=== PATIENT | male | born 1950 | race Caucasian/White ===

== ENCOUNTER → 2017-03-04 | Outpatient (CLI) | payer BC ==
[~2017-03-04] MED LIST: ATOR10TA88 PO; FERR324T PO; LISI-792 PO; WARF1TAB PO
== END | disposition home or self-care (01) ==
LOC: C.RDSM 14:03
PROVIDERS: ATTEND Physical Medicine & Rehabilitation Sports Medicine
DX: M25.511 Pain in right shoulder (principal)

== ENCOUNTER 2022-11-05 13:51 | Inpatient (IN) ==
--- NOTE | 2022-11-05 14:04 | Emergency Department Note ---
Impression & Plan Atypical chest pain, End stage renal disease, HTN (hypertension), Amyloidosis ED Provider Note NAME: PAUL LOOMIS AGE: 72 SEX: M : 1950 ARRIVES VIA: Ambulance INFORMANT: Patient, ED PROVIDER(S): Corby Raza MD CHIEF COMPLAINT: Chest pain MEDICAL DECISION MAKING: Patient presents due to concern for chest pain that occurred while at dialysis. Upon initial presentation patient's symptoms had completely resolved. 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 Initial EKG with no signs of obvious ischemia. Patient's blood work does show kidney dysfunction and troponin is not elevated. Nursing had called to state that the patient seemed to be in significant distress complaining of chest pains and the patient's heart rate was elevated in the 130s. The patient was ordered additional nitroglycerin. Patient was also ordered full dose aspirin. Repeat EKG was obtained and showed diffuse ST depressions anteriorly and laterally. No evidence of acute STEMI but I did speak with on-call cardiology Dr. Flowers as I planned to heparinize the patient and subsequently spoke with skein straightener Dr. Oneill. Dr. Rosi webster agreed with current plan of care which include ASA, nitro, and heparin drip, and he did come to evaluate the patient. A stat echo ordered by Dr. Oneill and completed at bedside. Patient was reassessed multiple times over this time periord w/ continuing improvement of CP from 10 to 7 to 4 to none. The patient's chest pain did resolve after 2 nitroglycerin. I did speak the on-call hospitalist service Dr. Lees. I did speak with Dr. Oneill who stated that the patient's echo did not show any evidence of wall motion abnormality and agrees with current plan of care heparinization trending troponins but does not believe the patient requires catheterization at this time. I did speak with Dr. Lees and conveyed these recommendations as well. Also conveyed the patient's chest pain is completely resolved. We did discuss the possibility of possible PE given the patient's recent fistulogram but believe this to be less likely as when the patient presented the patient was not tachycardic and had no symptoms after nitro. Additional imaging and treatment deferred to inpatient team at this time. Critical Care: I have personally spent 82 minutes of critical care time in direct management of this patient. This includes bedside care, interpretation of diagnostic studies, and testing, discussion with consultants, patient, and family members, and other require inpatient management activities. This 82 minutes is in excess of all separately billable procedures. Prior /Outside records reviewed: I did review the patient's fistulogram procedure performed by Dr. Potter yesterday. The patient did have 2 areas of stenosis which did require dilation. Differential diagnosis: Cardiac ischemia, aortic dissection, pulmonary embolism, pneumothorax, pneumonia, pericarditis, myocarditis, esophageal rupture, GERD, cholecystitis, pancreatitis, musculoskeletal, as well as other pathologies. Diagnostics, as interpreted by me: ECG: Sinus tachycardia, rate of 110, leftl axis deviation, prolonged QTc, no ST elevations. Repeat EKG interpreted by me Sinus tachycardia,, possible arm lead reversal as the patient's axis is changed, rate of 128, ST depressions anteriorly and laterally. No ST elevations. ST depressions are new from EKG completed upon arrival. Repeat EKG interpreted by me Likely sinus tachycardia as P waves appear to be present before every QRS in lead V1, rate of 112, ST depressions present laterally but improved compared to prior. no ST elevations. Cardiac monitoring: An order was placed for continuous cardiac monitoring. The monitor shows a rate of 105 with tachycardic and regular rhythm. Patient was placed on pulse oximetry Medical decision rules: none Imaging studies: See below HPI: Patient presents due to concern for chest pains. The patient states that this occurred in the setting of having just completed his dialysis session. The patient does still make urine. The patient states that he did receive nitroglycerin at dialysis and did have improvement in symptoms. At the time that he did have chest pain he states that he did feel diaphoretic left-sided. The patient was not exerting himself and was at rest at the time of this o ccurrence. Patient does relate that he had a "Roto-Rooter procedure" completed by Dr. Potter yesterday of the patient's left upper extremity AV fistula. Patient denies any prior history of DVT or PE. Patient not on any blood thinners and denies any prior history of CAD i.e. stents or CABG. Patient denies any leg swelling or calf pain. Patient states that he "feels like a new man" and has no symptoms at this time after receiving the nitroglycerin. Patient denies any abdominal pain vomiting or diarrhea. PAST MEDICAL HISTORY: See Below PAST SURGICAL HISTORY: See Below SOCIAL HISTORY: See Below HOME MEDICATIONS: See Below ALLERGIES: See Below VITALS: See Below PHYSICAL EXAMINATION: GENERAL: NAD, wearing a mask, non-toxic. EYE EXAM: Normal conjunctiva. PERRL, no anisocoria and EOM's grossly intact w/o pain. NECK: Supple, no nuchal rigidity, no adenopathy, non-tender. No signs of meningismus. FROM of the neck with good chin to chest and neck extension. No stridor. LUNGS: Clear to auscultation. Normal chest wall mechanics. HEART: NSR, murmur noted. ABDOMEN: Abdomen soft, non-tender, normo-active bowel sounds, no masses, no rebound or guarding. BACK: No CVA TTP. SKIN: No rashes and no bruising. UPPER EXTREMITIES: Upper extremities are grossly normal. Left upper extremity AV fistula with palpable thrill. LOWER EXTREMITIES: Grossly normal, no edema. Negative Homans' sign bilaterally. NEURO EXAM: A&O x3, cranial nerves II-XII grossly intact, normal speech, moves all 4 extremities. 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- EVERY FRIDAY IV INFUSION INCLUDING DEXAMETHASONE (40MG DURING INFUSION PER HEME/ONC)- AMYLOIDOSIS DX 2 WORKUP FOR CKD Anemia CHRONIC; BASELINE HGB 9-10 RANGE PER CHART REVIEW Anemia in chronic kidney disease (CKD) ESRD (end stage renal disease) NO DIALYSIS INDICATION AT THIS TIME; AVF PLACEMENT IN CASE DIALYSIS NEEDED IN FUTURE ESRD needing dialysis Herpes zoster Hypercalcemia Hyperphosphatemia Hypertension Metabolic acidosis Myofascial pain Osteoarthritis Pneumonia 11/2018- SYMPTOMS RESOLVED S/P ABX Pulmonary hypertension MILD (RSVP 44MMHG) Secondary hyperparathyroidism of renal origin Type 2 diabetes mellitus DIET CONTROLLED Vitamin D deficiency Surgical History H/O stem cell transplant History of back surgery Total knee replacement status RIGHT/LEFT Family History Father Family history of diabetes mellitus Social History Smoking Status: Former smoker Second Hand Exposure: No; Do You Dip or Chew Tobacco: No; Tobacco Cessation Education Requested by Patient: No Hx Alcohol Use: No Hx Substance Use: No Preferred Language: Sami Communication Ability: Effective Veterinary Surgeon Required: No Beliefs That Will Affect Care: None Current Living Situation: Spouse Other Information That Helps Us Care for You: No Feels Safe at Home: Yes Safety Concerns: Feels Safe At This Time Assistive Devices: None Allergies Allergies Allergy/AdvReac Type Severity Reaction Status Date / Time clindamycin Allergy Severe Rash Verified 11/05/22 16:53 Sulfa (Sulfonamide Allergy Intermediate diarrhea, Verified 11/05/22 16:53 Antibiotics) rash cefprozil [From Cefzil] AdvReac Intermediate Diarrhea Verified 11/05/22 16:53 Home Meds Home Medications Medication Instructions Recorded Confirmed tamsulosin 0.4 mg capsule 0.4 mg PO QPM 12/17/18 11/05/22 doxycycline monohydrate 100 mg 100 mg PO BID 05/10/19 11/05/22 capsule montelukast 10 mg tablet 10 mg PO DAILY 05/15/20 11/05/22 (Singulair) amlodipine 10 mg tablet 10 mg PO DAILY 12/29/20 11/05/22 cyanocobalamin (vitamin B-12) 1,000 mcg IM MONTHLY 12/29/20 11/05/22 1,000 mcg/mL injection solution fluticasone propionate 110 1 puff inhalation QAM 12/29/20 11/05/22 mcg/actuation HFA aerosol inhaler (Flovent HFA) allopurinol 100 mg tablet 100 mg PO DAILY 01/13/21 11/05/22 furosemide 20 mg tablet 20 mg PO DAILY PRN Fluid Retention 01/13/21 11/05/22 insulin aspart U-100 100 unit/mL 0 unit subcut UD 01/13/21 11/05/22 (3 mL) subcutaneous pen (Novolog FlexPen U-100 Insulin aspart) trazodone 50 mg tablet 100 mg PO HS 01/13/21 11/05/22 acyclovir 400 mg tablet 400 mg PO DAILY 11/04/22 11/05/22 Previous Rx's Medication Instructions Recorded sevelamer carbonate 800 mg tablet 800 mg PO TID #270 tabs 10/11/22 Results & Data (ED) Vital Signs Vital Signs - 24 hr 11/05/22 13:44 11/05/22 14:12 11/05/22 14:25 Temperature 36.8 C Temperature Source Oral Pulse Rate 116 H 107 H 95 H Pulse Rate [Apical] Pulse Rhythm Regular Pulse Strength Normal Respiratory Rate 20 18 Respiratory Effort / Characteristics Non-Labored Respiratory Depth Normal Respiratory Pattern Regular Blood Pressure 113/62 Blood Pressure [Right Arm] Blood Pressure Mean 79 Blood Pressure Mean [Right Arm] Blood Pressure Position Sitting Blood Pressure Position [Right Arm] Pulse Oximetry 98 100 Oxygen Delivery Method Room Air Room Air Oxygen Flow Rate Sepsis Recent Fever Within 48 Hours No Sepsis New/Unexplained Change in Mental Status No Sepsis Action Taken by Nursing No Action Required 11/05/22 15:54 11/05/22 15:54 11/05/22 16:39 Temperature Temperature Source Pulse Rate 103 H 87 Pulse Rate [Apical] 125 H Pulse Rhythm Pulse Strength Respiratory Rate 20 20 23 Respiratory Effort / Characteristics Respiratory Depth Respiratory Pattern Blood Pressure 113/54 L 102/65 Blood Pressure [Right Arm] 113/54 L Blood Pressure Mean 73 77 Blood Pressure Mean [Right Arm] 73 Blood Pressure Position Blood Pressure Position [Right Arm] Sitting Pulse Oximetry 100 100 99 Oxygen Delivery Method Nasal Cannula Nasal Cannula Nasal Cannula Oxygen Flow Rate 2 2 2 Sepsis Recent Fever Within 48 Hours Sepsis New/Unexplained Change in Mental Status Sepsis Action Taken by Nursing 11/05/22 16:45 11/05/22 17:00 Temperature Temperature Source Pulse Rate 84 90 Pulse Rate [Apical] Pulse Rhythm Pulse Strength Respiratory Rate 14 18 Respiratory Effort / Characteristics Respiratory Depth Respiratory Pattern Blood Pressure 105/62 118/65 Blood Pressure [Right Arm] Blood Pressure Mean 76 82 Blood Pressure Mean [Right Arm] Blood Pressure Position Blood Pressure Position [Right Arm] Pulse Oximetry 99 100 Oxygen Delivery Method Nasal Cannula Nasal Cannula Oxygen Flow Rate 2 2 Sepsis Recent Fever Within 48 Hours Sepsis New/Unexplained Change in Mental Status Sepsis Action Taken by Half-Way Medications Current Medication List: was personally reviewed by me Laboratory Data Attestation: I reviewed the patient's lab results. 11/06/22 06:11 11/06/22 06:11 Lab Results 11/05/22 11/05/22 11/05/22 Range/Units 14:46 14:46 14:46 WBC 4.98 (4.8-10.8) K/ul RBC 2.37 L (4.70-6.10) M/uL Hgb 8.2 L (14.0-18.0) g/dl Hct 23.3 L (42.0-52.0) % MCV 98.3 (80.0-100.0) fL MCH 34.6 H (25.0-34.0) pg MCHC 35.2 (32.0-36.0) g/dL RDW Std Deviation 49.3 H (36.4-46.3) fL RDW Coeff of Krish 14.2 (11.5-14.5) % Plt Count 187 (130-400) K/uL MPV 10.0 (9.4-12.4) fL Immature Gran % (Auto) 0.4 % Neut % (Auto) 74.7 % Lymph % (Auto) 16.3 % [place] % (Auto) 5.8 % Eos % (Auto) 2.4 % Baso % (Auto) 0.4 % Neut # (Auto) 3.72 (1.40-6.50) K/uL Lymph # (Auto) 0.81 L (1.2-3.4) K/uL [place] # (Auto) 0.29 (0.11-0.59) K/uL Eos # (Auto) 0.12 (0-0.50) K/uL Baso # (Auto) 0.02 (0-0.2) K/uL Immature Gran # (Auto) 0.02 (0.01-0.20) K/uL PT 10.2 (9.0-12.0) Seconds INR 1.0 (0.9-1.1) APTT 24.1 (21.0-31.0) Seconds PTT Ratio 0.9 Sodium 143 (136-145) mmol/L Potassium 3.2 L (3.5-5.1) mmol/L Chloride 97 L (98-107) mmol/L Carbon Dioxide 35 H (21-32) mmol/L Anion Gap 11 (3-11) BUN 15 (6-23) mg/dl Creatinine 3.60 H (0.6-1.4) mg/dl Est Cr Clr Drug Dosing 17.9 ml/min Est GFR ( Amer) 18.4 ml/min Est GFR (Non-Af Amer) 15.9 ml/min BUN/Creatinine Ratio 4.2 L (10-20) Glucose 140 H (70-99(Fasting)) mg/dl Calcium 8.9 (8.5-10.1) mg/dl Total Bilirubin 0.5 (0.2-1.0) mg/dl AST 17 (13-39) U/L ALT 10 (7-52) U/L Alkaline Phosphatase 57 (34-104) U/L Troponin I High Sens 15.5 (0-20) pg/ml Total Protein 6.3 (6.0-8.3) gm/dl Albumin 4.5 (3.4-5.0) gm/dl Globulin 1.8 L (2.5-4.0) gm/dl Albumin/Globulin Ratio 2.5 H (0.9-2) Lipase 27 (11-82) U/L 11/05/22 Range/Units 17:29 WBC (4.8-10.8) K/ul RBC (4.70-6.10) M/uL Hgb (14.0-18.0) g/dl Hct (42.0-52.0) % MCV (80.0-100.0) fL MCH (25.0-34.0) pg MCHC (32.0-36.0) g/dL RDW Std Deviation (36.4-46.3) fL RDW Coeff of Krish (11.5-14.5) % Plt Count (130-400) K/uL MPV (9.4-12.4) fL Immature Gran % (Auto) % Neut % (Auto) % Lymph % (Auto) % [place] % (Auto) % Eos % (Auto) % Baso % (Auto) % Neut # (Auto) (1.40-6.50) K/uL Lymph # (Auto) (1.2-3.4) K/uL [place] # (Auto) (0.11-0.59) K/uL Eos # (Auto) (0-0.50) K/uL Baso # (Auto) (0-0.2) K/uL Immature Gran # (Auto) (0.01-0.20) K/uL PT (9.0-12.0) Seconds INR (0.9-1.1) APTT (21.0-31.0) Seconds PTT Ratio Sodium (136-145) mmol/L Potassium (3.5-5.1) mmol/L Chloride (98-107) mmol/L Carbon Dioxide (21-32) mmol/L Anion Gap (3-11) BUN (6-23) mg/dl Creatinine (0.6-1.4) mg/dl Est Cr Clr Drug Dosing ml/min Est GFR ( Amer) ml/min Est GFR (Non-Af Amer) ml/min BUN/Creatinine Ratio (10-20) Glucose (70-99(Fasting)) mg/dl Calcium (8.5-10.1) mg/dl Total Bilirubin (0.2-1.0) mg/dl AST (13-39) U/L ALT (7-52) U/L Alkaline Phosphatase (34-104) U/L Troponin I High Sens 20.8 H (0-20) pg/ml Total Protein (6.0-8.3) gm/dl Albumin (3.4-5.0) gm/dl Globulin (2.5-4.0) gm/dl Albumin/Globulin Ratio (0.9-2) Lipase (11-82) U/L Administered Medications Acyclovir (Acyclovir 400 Mg Tab) 400 mg PO DAILY GEMMA Stop: 12/06/22 08:59 Last Admin: 11/06/22 08:41 Dose: 400 mg Documented By: AM Allopurinol (Allopurinol 100 Mg Tab) 100 mg PO DAILY GEMMA Stop: 12/06/22 08:59 Last Admin: 11/06/22 08:41 Dose: 100 mg Documented By: AM Amlodipine Besylate (Amlodipine Besylate 5 Mg Tab) 10 mg PO DAILY GEMMA Stop: 12/06/22 08:59 Last Admin: 11/06/22 08:45 Dose: 10 mg Documented By: AM Cyanocobalamin (Cyanocobalamin 1000 Mcg/Ml Vial) 1,000 mcg IM Q30D GEMMA Stop: 12/06/22 08:59 Last Admin: 11/06/22 11:36 Dose: 1,000 mcg Documented By: AM Doxycycline Hyclate (Doxycycline Hyclate 100 Mg Cap) 100 mg PO BID GEMMA Stop: 12/05/22 20:59 Last Admin: 11/06/22 08:40 Dose: 100 mg Documented By: Admin: 11/05/22 22:11 Dose: 100 mg Documented By: SAHARA Fluticasone Furoate (Fluticasone Furoate 100mcg 14 Puffs/Inhaler) 1 puffs INH DAILY GEMMA Stop: 12/06/22 08:59 Last Admin: 11/06/22 08:46 Dose: Not Given Documented By: AM Heparin Sodium/Dextrose (Heparin Sodium/Dextrose) 25,000 units in 500 mls @ 19 mls/hr IV .Q24H GEMMA; Protocol Stop: 12/05/22 16:14 Last Titration: 11/06/22 09:13 Dose: 950 units/hr, 19 mls/hr Documented By: ASHER Co-signed By: FRANCIA Titration: 11/06/22 07:00 Dose: 900 units/hr, 18 mls/hr Documented By: SAHARA Co-signed By: ASHER Titration: 11/05/22 23:38 Dose: 900 units/hr, 18 mls/hr Documented By: SAHARA Co-signed By: GG Admin: 11/05/22 16:12 Dose: 850 units/hr, 17 mls/hr Documented By: QGV Co-signed By: ARRON Iron Sucrose 300 mg/ Sodium (Chloride) 265 mls @ 176.667 mls/hr IV DAILY GEMMA Stop: 11/09/22 10:29 Last Admin: 11/06/22 13:06 Dose: 176.7 mls/hr Documented By: AM Montelukast Sodium (Montelukast Sodium 10 Mg Tablet) 10 mg PO DAILY GEMMA Stop: 12/06/22 08:59 Last Admin: 11/06/22 08:46 Dose: Not Given Documented By: AM Sevelamer HCl (Sevelamer Hcl 800 Mg Tablet) 800 mg PO TIDM GEMMA Stop: 12/05/22 20:59 Last Admin: 11/06/22 11:36 Dose: 800 mg Documented By: Admin: 11/06/22 08:40 Dose: 800 mg Documented By: Admin: 11/05/22 22:12 Dose: 800 mg Documented By: SAHARA Tamsulosin HCl (Tamsulosin Hcl 0.4 Mg Cap) 0.4 mg PO QPM GEMMA Stop: 12/05/22 20:59 Last Admin: 11/05/22 22:13 Dose: 0.4 mg Documented By: SAHARA Trazodone HCl (Trazodone Hcl 100 Mg Tab) 100 mg PO HS GEMMA Stop: 12/05/22 20:59 Last Admin: 11/05/22 22:12 Dose: 100 mg Documented By: MNM Discontinued Medications Aspirin (Aspirin Chew 324 Mg) 324 mg PO NOW STA Stop: 11/05/22 15:48 Last Admin: 11/05/22 15:51 Dose: 324 mg Documented By: QGV Epoetin Bernardino (Epoetin Bernardino 20,000 Units/Ml Vial) 20,000 units SQ ONE ONE Stop: 11/06/22 12:22 Last Admin: 11/06/22 13:04 Dose: 20,000 units Documented By: AM Heparin Sodium (Porcine) (Heparin Sod (Porcine) 1000 Unit/Ml) 1 units IV NOW ONE Stop: 11/05/22 16:09 Last Admin: 11/05/22 16:13 Dose: 4,000 units Documented By: QGV Co-signed By: NA Heparin Sodium/Dextrose (Heparin Iv Adult Wt-Based Low-Dose With Bolus Protocol) 1 each IV NOW STA; Protocol Stop: 11/05/22 15:53 Last Admin: 11/05/22 20:03 Dose: Not Given Documented By: QGV Morphine Sulfate (Morphine Sulfate 4 Mg/Ml 1 Ml Carp\\Vial) 4 mg IV NOW STA Stop: 11/05/22 15:54 Last Admin: 11/05/22 20:03 Dose: Not Given Documented By: QGV Nitroglycerin (Nitroglycerin Sl 0.4 Mg/Tab Tab) 0.4 mg SL NOW STA Stop: 11/05/22 15:48 Last Admin: 11/05/22 15:51 Dose: 0.4 mg Documented By: QGV Potassium Chloride (Potassium Chloride Crtab 20 Meq Tabcr) 20 meq PO ONE ONE Stop: 11/05/22 20:47 Last Admin: 11/05/22 22:13 Dose: 20 meq Documented By: MNM Imaging Data Radiologist's Impression: Chest X-Ray 11/05/22 14:25 XR chest 1V portable HISTORY: 72 years-old Male Chest pain, nonspecific COMPARISON: Chest radiograph 6 06/09/2019 TECHNIQUE: AP view of the chest FINDINGS: Cardiomediastinal and hilar silhouettes are within normal limits. Mild right hemidiaphragmatic elevation again noted. No pneumothorax, pleural effusion, airspace consolidation or pulmonary edema. Bones appear grossly intact. Left shoulder rotator cuff calcific tendinosis. IMPRESSION: Cardiomegaly without acute process. ACT 112: Negative or not required by law. The above report was generated using voice recognition software. It may contain grammatical, syntax or spelling errors. Electronically signed by: Colton Witt M.D. 11/05/2022 3:11 PM Discharge Plan Visit Data Chief Complaint: Illness ED Provider: Corby Raza Discharge Problem: Atypical chest pain, End stage renal disease, HTN (hypertension), Amyloidosis Patient Disposition: Admitted As Inpatient Discharge Instructions Interventions: ED Discharge Assessment Last Done: 11/05/22 20:24
--- NOTE | 2022-11-05 15:12 | XRay Report ---
XR chest 1V portable HISTORY: 72 years-old Male Chest pain, nonspecific COMPARISON: Chest radiograph 6 06/09/2019 TECHNIQUE: AP view of the chest FINDINGS: Cardiomediastinal and hilar silhouettes are within normal limits. Mild right hemidiaphragmatic elevat ion again noted. No pneumothorax, pleural effusion, airspace consolidation or pulmonary edema. Bones appear grossly intact. Left shoulder rotator cuff calcific tendinosis. IMPRESSION: Cardiomegaly without acute process. ACT 112: Negative or not required by law. The above report was generated using voice recognition software. It may contain grammatical, syntax o r spelling errors. Electronically signed by: Colton Witt M.D. 11/05/2022 3:11 PM
[2022-11-05 15:25] LABS: Basophils # (auto) 0.02 K/uL (0-0.2); Basophils % (auto) 0.4 %; Eosinophils # (auto) 0.12 K/uL (0-0.50); Eosinophils % (auto) 2.4 %; Hematocrit (blood only) 23.3 % (42.0-52.0); Hemoglobin 8.2 g/dl (14.0-18.0); Immature Granulocytes # (auto) 0.02 K/uL (0.01-0.20); Immature Granulocytes % (auto) 0.4 %; Lymphocytes # (auto) 0.81 K/uL (1.2-3.4); Lymphocytes % (auto) 16.3 %; Mean Corpuscular Hemoglobin 34.6 pg (25.0-34.0); Mean Corpuscular Hgb Conc 35.2 g/dL (32.0-36.0); Mean Corpuscular Volume 98.3 fL (80.0-100.0); Monocytes # (auto) 0.29 K/uL (0.11-0.59); Monocytes % (auto) 5.8 %; Neutrophils # (auto) 3.72 K/uL (1.40-6.50); Neutrophils % (auto) 74.7 %; Platelet Count 187 K/uL (130-400); RDW Coefficient of Variation 14.2 % (11.5-14.5); RDW Standard Deviation 49.3 fL (36.4-46.3); Red Blood Count 2.37 M/uL (4.70-6.10); White Blood Count 4.98 K/ul (4.8-10.8)
[2022-11-05 15:47] LABS: Albumin Globulin Ratio 2.5 (0.9-2); Albumin Level 4.5 gm/dl (3.4-5.0); BUN Creatinine Ratio 4.2 (10-20); Bilirubin,Total 0.5 mg/dl (0.2-1.0); Calcium 8.9 mg/dl (8.5-10.1); Creatinine Clr Calc Pharmacy 17.9 ml/min; Est GFR (African American) 18.4 ml/min; Est GFR (Non-African American) 15.9 ml/min; Globulin 1.8 gm/dl (2.5-4.0); Potassium 3.2 mmol/L (3.5-5.1); Total Protein 6.3 gm/dl (6.0-8.3); Troponin I High Sensitivity 15.5 pg/ml (0-20)
[2022-11-05] MEDS ORDERED: ASPIRIN CHEW 324 MG PO STA (15:47)
[2022-11-05] MEDS ORDERED: NITROGLYCERIN SL 0.4 MG/TAB TAB SL STA (15:47)
[2022-11-05 15:50] LABS: Partial Thromboplastin Ratio 0.9; Partial Thromboplastin Time 24.1 Seconds (21.0-31.0); Prothrombin Time 10.2 Seconds (9.0-12.0)
[2022-11-05] MEDS ORDERED: Heparin IV Adult Wt-Based Low-Dose WITH Bolus Protocol IV STA (15:52)
[2022-11-05] MEDS ORDERED: NITROGLYCERIN SL 0.4 MG/TAB TAB SL PRN ×2 (15:52→20:46)
[2022-11-05] MEDS ORDERED: MoRPHine SULFATE 4 MG/ML 1 ML CARP\\VIAL IV STA (15:53)
[2022-11-05] MEDS ORDERED: HEPARIN SOD (PORCINE) 1000 UNIT/ML IV ONE (16:08)
[2022-11-05] MEDS: HEPARIN SODIUM/DEXTROSE 25,000 UNITS/500 ML BAG IV SCH (16:12)
--- NOTE | 2022-11-05 16:42 | Cardiology Consultation ---
Date of Consultation November 05, 2022 Assessment & Plan (1) Atypical chest pain: Multiple potential etiologies. Currently resolved symptoms. No definitive ischemic changes. Initial troponin negative. Unsure if this is secondary to myocardial ischemia, pericardial effusion, embolization of clot status post SCHOOL BASED THERAPIST of AV fistula, or pleuritic. Does not seem to be reproducible. Agree with heparin drip in case it is embolism or ACS. The echo speaks against ACS given normal wall motion. I would trend the troponin and should this be significantly elevated we certainly can consider definitive evaluation by coronary angiography. Not sure if CTA to exclude pulmonary embolism would be of significant yield since symptomatically he is doing well at the moment suggesting that if there was embolism from his AV fistula it was a relatively minor. I would also contact his primary territory sales executive regarding prior stress testing and/or any cath results that may have occurred in the past. (2) Amyloidosis: Per patient this has involved his kidneys as well as his heart. Reports prior cardiac MRI demonstrating amyloid deposits in the heart. He has evidently had stem cell transplant and chemotherapy. The echocardiogram does suggest cardiac amyloidosis but he has preserved LV systolic function with a history of grade 2 diastolic dysfunction. No evidence of fluid overload at this time. He does make urine so he should continue with his usual Lasix dose to maintain euvolemia. (3) PAF (paroxysmal atrial fibrillation): Patient reports history of paroxysmal atrial fibrillation occurring at the time he had stem cell transplant. However, there is no documentation of PAF and he is not on any anticoagulant. He is however on heparin. Hopefully we can obtain records from [facility] to see if he does in fact have paroxysmal atrial fibrillation which may have an impact on our recommended therapy. Of course, his primary territory sales executive likely has addressed this in the past. (4) Anemia: Patient history of chronic anemia. His current H&H seem to be below his baseline. Certainly can contribute to myocardial ischemia by itself and associated chest pain particularly if he was also hypotensive at the time of dialysis. In any case, at the moment he does not have any chest discomfort and given that he will likely continue work-up for renal transplantation we should hold off on any transfusion for as long as possible. Also, he does have some ecchymosis at the AV fistula site but should not have had significant drop-off in H&H from the procedure alone. Should keep an eye on things while he is on heparin. Plan For the time being patient does not need cardiac catheterization. However, I will review his lab work overnight and see if he develops recurrent symptoms and or ischemic EKG changes. 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 He has end- stage renal disease and has been on dialysis. His territory sales executive is Dr. Jonnathan Flores. Patient is undergoing work-up for renal transplant. He had a stress test performed within the last year which is unavailable for my review at this time. Yesterday, patient underwent fistulogram and SCHOOL BASED THERAPIST for a malfunctioning AV fistula in the left upper extremity. He tolerated the procedure well but felt that he was dehydrated yesterday. Then, today he underwent hemodialysis and they removed 1 kg of fluid. He developed chest discomfort and shortness of breath. He was brought by ambulance to the emergency department. EKG was obtained. He was provided heparin drip and nitro glycerin. His symptoms resolved but they recurred for short time and I was called to evaluate him. On my arrival his symptoms had again resolved. He tells me that he often has troubles when he is dehydrated or his blood counts are low. Predominant symptom than is shortness of breath. He never had cardiac catheterization to his recollection but did have a recent stress test performed by [facility]. Patient denies anginal chest pain with activity, shortness of breath at rest, syncope, near syncope, orthopnea, PND, racing heartbeat, palpitations, and edema. He states that he has had intermittent episodes of atrial fibrillation in the past most recently with stem cell transplantation. He recently saw his oncologist. Reviewing his records he had a echocardiogram demonstrating EF of 65%, mild LVH, severe left atrial enlargement, mild right atrial enlargement, dilated IVC and a small pericardial effusion with moderate pulmonary hypertension in 2020. At the time of my evaluation today he was undergoing echocardiogram. I was able to review some of the images which demonstrated no wall motion abnormalities, pericardial effusion, aortic sclerosis, mitral annular calcification, and preserved EF. The myocardium looked hypertrophic and speckled consistent with amyloid deposits. I will fully review the echo when it is available. Allergies Allergy/AdvReac Type Severity Reaction Status Date / Time clindamycin Allergy Severe Rash Verified 11/05/22 16:53 Sulfa (Sulfonamide Allergy Intermediate diarrhea, Verified 11/05/22 16:53 Antibiotics) rash cefprozil [From Cefzil] AdvReac Intermediate Diarrhea Verified 11/05/22 16:53 Home Medications Medication Instructions Recorded Confirmed Type tamsulosin 0.4 mg capsule 0.4 mg PO QPM 12/17/18 11/05/22 History doxycycline monohydrate 100 mg 100 mg PO BID 05/10/19 11/05/22 History capsule montelukast 10 mg tablet 10 mg PO DAILY 05/15/20 11/05/22 History (Singulair) amlodipine 10 mg tablet 10 mg PO DAILY 12/29/20 11/05/22 History cyanocobalamin (vitamin B-12) 1,000 mcg IM MONTHLY 12/29/20 11/05/22 History 1,000 mcg/mL injection solution fluticasone propionate 110 1 puff inhalation QAM 12/29/20 11/05/22 History mcg/actuation HFA aerosol inhaler (Flovent HFA) allopurinol 100 mg tablet 100 mg PO DAILY 01/13/21 11/05/22 History furosemide 20 mg tablet 20 mg PO DAILY PRN Fluid Retention 01/13/21 11/05/22 History insulin aspart U-100 100 unit/mL 0 unit subcut UD 01/13/21 11/05/22 History (3 mL) subcutaneous pen (Novolog FlexPen U-100 Insulin aspart) trazodone 50 mg tablet 100 mg PO HS 01/13/21 11/05/22 History sevelamer carbonate 800 mg tablet 800 mg PO TID #270 tabs 10/11/22 11/05/22 Rx acyclovir 400 mg tablet 400 mg PO DAILY 11/04/22 11/05/22 History Patient History Medical History (Updated 11/05/22 @ 17:07 by Trav Oneill MD, PhD) Amyloidosis ON CHEMO CYBORD- EVERY FRIDAY IV INFUSION INCLUDING DEXAMETHASONE (40MG DURING INFUSION PER HEME/ONC)- AMYLOIDOSIS DX 2/2 WORKUP FOR CKD Anemia CHRONIC; BASELINE HGB 9-10 RANGE PER CHART REVIEW Anemia in chronic kidney disease (CKD) ESRD (end stage renal disease) NO DIALYSIS INDICATION AT THIS TIME; AVF PLACEMENT IN CASE DIALYSIS NEEDED IN FUTURE ESRD needing dialysis Herpes zoster Hypercalcemia Hyperphosphatemia Hypertension Metabolic acidosis Myofascial pain Osteoarthritis Pneumonia 11/2018- SYMPTOMS RESOLVED S/P ABX Pulmonary hypertension MILD (RSVP 44MMHG) Secondary hyperparathyroidism of renal origin Type 2 diabetes mellitus DIET CONTROLLED Vitamin D deficiency Surgical History H/O stem cell transplant History of back surgery Total knee replacement status RIGHT/LEFT Family History Father Family history of diabetes mellitus Social History Smoking Status: Never smoker Second Hand Exposure: No; Hx Alcohol Use: Yes Alcohol type: beer, wine and hard liquor Hx Substance Use: No Preferred Language: Citizen Of [place] Communication Ability: Effective Shroud Line Tier Required: No Beliefs That Will Affect Care: None Current Living Situation: Spouse Feels Safe at Home: Yes Assistive Devices: Denture - Upper, Denture - Lower and Glasses Review of Systems Review of Systems: Negative except as per HPI Physical Exam Constitutional: Awake, alert, oriented chronically ill-appearing male in no acute distress. Eyes: Extraocular muscles intact. Sclera are anicteric. ENMT: Oral mucosa is pink moist and intact. Neck: No JVD Respiratory: Clear to auscultation bilaterally. No wheezing, rhonchi, or rales. Fair air movement. Cardiovascular: Regular rate and rhythm. Grade 2 out of 6 to 3 out of 6 systolic murmur. Soft early diastolic murmur. S3. No lower extremity edema. Musculoskeletal: no cyanosis or clubbing, extremities motor strength 5/5 (Left upper extremity with ecchymosis. Normal thrill at the AV fistula) Neurologic: Cognition is intact. Hearing is reduced. Speech is fluent. No focal deficits. No tremor. Psychiatric: A+Ox3, euthymic affect Results & Data Vital Signs (Past 12 Hours) Vital Signs Temp Pulse Pulse Resp BP BP Pulse Ox 11/05/22 15:54 125 H 20 113/54 L 100 11/05/22 14:25 95 H 18 100 11/05/22 14:12 107 H 11/05/22 13:44 36.8 C 116 H 20 113/62 98 O2 Del Method O2 Flow Rate 11/05/22 15:54 Nasal Cannula 2 11/05/22 14:25 Room Air 11/05/22 14:12 11/05/22 13:44 Room Air PG Care Time/CCT Total # of Minutes Spent Total Time Spent: 55 Total Time Spent with Patient: Total time spent is greater than 50% in coordination of care (as documented) at patient's floor/unit and/or counseling patient: [place] [address] INT INP/OBS CARE 2/55MIN Patient Type New Diagnoses Atypical chest pain R07.89 Amyloidosis E85.9 PAF (paroxysmal atrial fibrillation) I48.0 Anemia D64.9
--- NOTE | 2022-11-05 16:53 | History & Physical Report ---
Date of Service November 05, 2022 Assessment & Plan (1) Chest pain: Plan: Chest pain,? NSTEMI Patient with chest pain, diaphoresis postdialysis. In ER received 1X nitro with complete resolution of symptoms. Subsequently became diaphoretic and ill- appearing, EKG showed diffuse ST depressions. Symptoms resolved with second nitro, patient had received full dose aspirin. Was placed on low-dose heparin drip. Stat consult to cardiology placed. Echo did not show wall motion change, catheterization not recommended at this time. Continue heparinization. Troponins trended, initial negative Initially mildly hypotensive and tachycardic, improved on reassessment Discussed with vascular surgery given recent balloon angioplasty. Low suspicion for procedural thromboembolism. No additional imaging/fistulogram or treatment change recommended at this time. Continue cardiac treatment as noted. Nitro on-call as needed for chest pain Nonanuric ESRD on dialysis 11/04/2022 fistulogram: Widely patent fistula, 2 areas of 90% stenosis at the shoulder level which were dilated. Proximal residual area was then subsequently dilated. Good results with no narrowing seen, adequate hemostasis, no complications at time of procedure. 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 Not an uric, but requires Friday dialysis Nephrology consulted for inpatient management, patient finished dialysis date of admission. Is not fluid overloaded, potassium on admission postdialysis is 3.2. In the setting of chest pain and conserve cardiac irritability 20 EQ of potassium given, limit additional potassium and note dialysis dependence. Creatinine morning prior to dialysis was 4.0. - Clears --> advance to dialysis diet if doing well in AM - K 3.2 - Euvolemic on assessment History of amyloid Continue doxycycline for antiamyloid effects Patient reports he is doing very well post autologous transplant with no ongoing immunosuppressants/treatments required other than doxycycline Anemia Chronic, hemoglobin 8.2 on admission Defer transfusion if possible, given as clinically improved and is asymptomatic and hemoglobin greater than 8 no transfusion recommended on admission Trend hemoglobin daily Follow closely for bleeding in the setting of heparin GTT. Given chronic anemia borderline symptomatic, continuing low-dose heparin as otherwise noted History of DM 2 No longer on insulin, adequate treatment with dialysis Last A1c 6.2% Follow BSG, if greater than 180 may resume basal bolus weight-based BMP daily Hypertension Amlodipine held for hypotension Diet: Renal Disposition: PCU CODE STATUS: Full code DVT prophylaxis: Heparinized (2) Anemia: (3) HTN (hypertension): (4) Chronic kidney disease: (5) Type 2 diabetes mellitus: (6) Hyperlipidemia: (7) Chronic kidney disease, stage V: (8) ESRD needing dialysis: History of Present Illness Primary Care Provider: Rudy Royal Patient is a 72-year-old male with a past medical history of amyloidosis s/p autologous transplant, ESRD with malfunctioning fistula s/p angioplasty with Dr. Potter 11/04/22 subsequently working well, hypercalcemia, hyperphosphatemia, hypertension, type II DM diet controlled, and vitamin D deficiency with additional history of stem cell transplant Solomon is seen at the bedside REports has pain across his center chest and travelled into his left arm last night. Went away after he layed down and went to sleep Went to dialysis today, finished his session when he suddenly had a 'feeling that just didn't feel right' in his arms and pressure in his center chest. That seemed to gradually worsen and lasted 30-40 minutes. [place] better after getting nitro 2x while at dialysis and put on oxygen. ~40 minutes prior to admission marlyn jamison he had another episode which improved with nitro. "Was not a great feeling, felt like I was going to " He notes he had a fistulagram yesterday, not sure if he could have had a clot which broke free during balloon angioplasty. He reports he felt well after the initial procedure. HIs fistula arm has been very bruised since having the procedure and seems to be worsening. hgb 8.1 preprocedure Was having SoB with exertion prior to the procedure Has dialysis [facility] History of Amyloidosis tx with stem cell transplant. 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 Was recovering when he got COVID. That was end of 2019. - Current takes no medications, transplant was successful. Takes doxycycline chronically for amyloid - still takes acyclovir prophylaxis for shingles suppression - does not take insulin. Was transiently on insulin but has not needed since. Medical History: Reviewed Medications: Reviewed Surgical History: Reviewed Family history: Reviewed Allergies: Reviewed Social History: Reviewed Code Status: Full code Allergies Allergy/AdvReac Type Severity Reaction Status Date / Time clindamycin Allergy Severe Rash Verified 11/05/22 16:53 Sulfa (Sulfonamide Allergy Intermediate diarrhea, Verified 11/05/22 16:53 Antibiotics) rash cefprozil [From Cefzil] AdvReac Intermediate Diarrhea Verified 11/05/22 16:53 Home Medications Medication Instructions Recorded Confirmed Type tamsulosin 0.4 mg capsule 0.4 mg PO QPM 12/17/18 11/05/22 History doxycycline monohydrate 100 mg 100 mg PO BID 05/10/19 11/05/22 History capsule montelukast 10 mg tablet 10 mg PO DAILY 05/15/20 11/05/22 History (Singulair) amlodipine 10 mg tablet 10 mg PO DAILY 12/29/20 11/05/22 History cyanocobalamin (vitamin B-12) 1,000 mcg IM MONTHLY 12/29/20 11/05/22 History 1,000 mcg/mL injection solution fluticasone propionate 110 1 puff inhalation QAM 12/29/20 11/05/22 History mcg/actuation HFA aerosol inhaler (Flovent HFA) allopurinol 100 mg tablet 100 mg PO DAILY 01/13/21 11/05/22 History furosemide 20 mg tablet 20 mg PO DAILY PRN Fluid Retention 01/13/21 11/05/22 History insulin aspart U-100 100 unit/mL 0 unit subcut UD 01/13/21 11/05/22 History (3 mL) subcutaneous pen (Novolog FlexPen U-100 Insulin aspart) trazodone 50 mg tablet 100 mg PO HS 01/13/21 11/05/22 History sevelamer carbonate 800 mg tablet 800 mg PO TID #270 tabs 10/11/22 11/05/22 Rx acyclovir 400 mg tablet 400 mg PO DAILY 11/04/22 11/05/22 History 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- EVERY FRIDAY IV INFUSION INCLUDING DEXAMETHASONE (40MG DURING INFUSION PER HEME/ONC)- AMYLOIDOSIS DX 2/2 WORKUP FOR CKD Anemia CHRONIC; BASELINE HGB 9-10 RANGE PER CHART REVIEW Anemia in chronic kidney disease (CKD) ESRD (end stage renal disease) NO DIALYSIS INDICATION AT THIS TIME; AVF PLACEMENT IN CASE DIALYSIS NEEDED IN FUTURE ESRD needing dialysis Herpes zoster Hypercalcemia Hyperphosphatemia Hypertension Metabolic acidosis Myofascial pain Osteoarthritis Pneumonia 11/2018- SYMPTOMS RESOLVED S/P ABX Pulmonary hypertension MILD (RSVP 44MMHG) Secondary hyperparathyroidism of renal origin Type 2 diabetes mellitus DIET CONTROLLED Vitamin D deficiency Surgical History H/O stem cell transplant History of back surgery Total knee replacement status RIGHT/LEFT Family History Father Family history of diabetes mellitus Social History Smoking Status: Never smoker Second Hand Exposure: No; Hx Alcohol Use: Yes Alcohol type: beer, wine and hard liquor Hx Substance Use: No Preferred Language: Upper Sor[place] Communication Ability: Effective Cad Engineer Required: No Beliefs That Will Affect Care: None Current Living Situation: Spouse Feels Safe at Home: Yes Assistive Devices: Denture - Upper, Denture - Lower and Glasses Review of Systems Review of Systems: All systems reviewed & are unremarkable except as noted in HPI & below Physical Exam Physical Exam: General: A&Ox3. NAD. Cooperative. HEENT: Atraumatic, normocephalic. Vision and hearing intact Pulm: CTAB A&P. -wheezes, -rales, -rhonchi. Symmetrical chest rise. No increased work of breathing. No respiratory distress. Cardiac: RRR, systolic murmur present radial pulses intact and symmetrical. Abdominal: Nontender, nondistended, soft. BS present. Extremities: Left AV fistula in place, slight ecchymoses surrounding mid upper arm fistula without firm hematoma. No erythema/pain/warmth. Good thrill. S ensation of soft touch intact in hands bilaterally. Legs are with minimal ankle edema Results & Data Results & Data Vital Signs (Past 12 Hours) Vital Signs Temp Pulse Pulse Resp BP BP Pulse Ox 11/05/22 15:54 125 H 20 113/54 L 100 11/05/22 14:25 95 H 18 100 11/05/22 14:12 107 H 11/05/22 13:44 36.8 C 116 H 20 113/62 98 O2 Del Method O2 Flow Rate 11/05/22 15:54 Nasal Cannula 2 11/05/22 14:25 Room Air 11/05/22 14:12 11/05/22 13:44 Room Air PG Care Time/CCT Total # of Minutes Spent Total Time Spent with Patient: Total time spent is greater than 50% in coordination of care (as documented) at patient's floor/unit and/or counseling patient: Coding Level of Care Code 35817 INT INP/OBS CARE 3/75MIN Diagnoses Chest pain R07.9 Anemia D64.9 HTN (hypertension) I10 Chronic kidney disease N18.9 Type 2 diabetes mellitus E11.9 Hyperlipidemia E78.5 Chronic kidney disease, stage V N18.5 ESRD needing dialysis N18.6; Z99.2
[2022-11-05] MEDS ORDERED: ACETAMINOPHEN 325 MG TAB PO PRN (20:46)
[2022-11-05] MEDS ORDERED: FUROSEMIDE 20 MG TAB PO PRN (20:46)
[2022-11-05] MEDS ORDERED: POTASSIUM CHLORIDE CRTAB 20 MEQ TABCR PO ONE (20:46)
[2022-11-05] MEDS: DOXYCYCLINE HYCLATE 100 MG CAP PO SCH (22:11)
[2022-11-05] MEDS: SEVELAMER HCL 800 MG TABLET PO SCH (22:12)
[2022-11-05] MEDS: traZODone HCL 100 MG TAB PO SCH (22:12)
[2022-11-05] MEDS: TAMSULOSIN HCL 0.4 MG CAP PO SCH (22:13)
[2022-11-05 23:32] LABS: Partial Thromboplastin Ratio 1.6; Partial Thromboplastin Time 44.4 Seconds (21.0-31.0)
[2022-11-06 06:45] LABS: Basophils # (auto) 0.03 K/uL (0-0.2); Basophils % (auto) 0.6 %; Eosinophils # (auto) 0.13 K/uL (0-0.50); Eosinophils % (auto) 2.5 %; Hematocrit (blood only) 21.5 % (42.0-52.0); Hemoglobin 7.5 g/dl (14.0-18.0); Immature Granulocytes # (auto) 0.01 K/uL (0.01-0.20); Immature Granulocytes % (auto) 0.2 %; Lymphocytes # (auto) 1.51 K/uL (1.2-3.4); Lymphocytes % (auto) 28.5 %; Mean Corpuscular Hgb Conc 34.9 g/dL (32.0-36.0); Mean Corpuscular Volume 100.5 fL (80.0-100.0); Monocytes % (auto) 9.5 %; Neutrophils # (auto) 3.11 K/uL (1.40-6.50); Neutrophils % (auto) 58.7 %; Platelet Count 167 K/uL (130-400); RDW Coefficient of Variation 14.8 % (11.5-14.5); Red Blood Count 2.14 M/uL (4.70-6.10); White Blood Count 5.29 K/ul (4.8-10.8)
[2022-11-06 07:14] LABS: Polychromasia 1+
[2022-11-06 07:31] LABS: Partial Thromboplastin Ratio 1.6
[2022-11-06 07:42] LABS: Calcium 8.3 mg/dl (8.5-10.1); Creatinine Clr Calc Pharmacy 11.6 ml/min; Est GFR (African American) 11.8 ml/min; Est GFR (Non-African American) 10.2 ml/min; Potassium 3.7 mmol/L (3.5-5.1)
--- NOTE | 2022-11-06 07:59 | Hospitalist Progress Note ---
Date of Service November 06, 2022 Assessment & Plan (1) Chest pain: Plan: Chest pain,? NSTEMI Patient with chest pain, diaphoresis postdialysis with recurrent sensation SIGNIFICANT chest pain w/ radiation to arms, relieved w/ Nitro Discussed on admit w/ vascular given recent balloon angioplasty -- low suspicion for procedural thromboembolism and no further tx change at this time In ER received 1X nitro with complete resolution of symptoms. Subsequently became diaphoretic and ill-appearing, EKG showed diffuse ST depressions. Symptoms resolved with second nitro, patient had received full dose aspirin. Was placed on low-dose heparin drip Cardiology consulted -- no wma on echo at bedside, no cardiac cath recommended Continue heparin gtt Trop 20.8--> 25.9 --> 43--> 47.3 peaked, repeat 41.7 Currently patient CHEST PAIN FREE on Heparin gtt/nitro -- continuing heparin gtt Close monitoring of blood counts on heparin (reports hx nose bleeds) Was going to attempt to transfuse unit of PRBC however patient on transplant list and wanting to avoid Nephrology consulted and to give dose EPO/Venofer and will monitor counts Dr Flores to see patient in AM as well Atrial Fibrillation Hx paroxysmal afib (rates not significantly elevated at time of symptoms when inhouse) EKG on admit and tele, afib in 60-70s TSH wnl 3.569 On Heparin gtt Keep K~4, Mag ~2 Dr Flores to see in AM (follows w/ Dr Flores) Anemia Chronic however does appear worsening over past year, no bleeding reported Hemoglobin 8.2 on admission, 7.8 on AM labs Patient wanted to avoid transfusion as on list for transplant -- discussed w/ Nephrology and they are ordering EPO/Venofer for today Check fecal occult for completeness Follow closely for bleeding in the setting of heparin GTT. Given chronic anemia borderline symptomatic, continuing low-dose heparin as otherwise noted Nonanuric ESRD on dialysis 11/04/2022 fistulogram: Widely patent fistula, 2 areas of 90% stenosis at the shoulder level which were dilated. Proximal residual area was then subsequently dilated. Good results with no narrowing seen, adequate hemostasis, no complications at time of procedure. 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 Not an uric, but requires Friday dialysis Undergoing HD TTS at [place], undergoing transplant eval at [facility] Renal dose meds/avoid nephrotoxins when able Monitor BMP History of amyloid Continue doxycycline for antiamyloid effects Patient reports he is doing very well post autologous transplant with no ongoing immunosuppressants/treatments required other than doxycycline History of DM 2 No longer on insulin, adequate treatment with dialysis Last A1c 6.2% Follow BSG, if greater than 180 may resume basal bolus weight-based BMP daily Hypertension Amlodipine held for hypotension Diet: Renal Disposition: PCU CODE STATUS: Full code DVT prophylaxis: Heparinized (2) Anemia: (3) HTN (hypertension): (4) Chronic kidney disease: (5) Type 2 diabetes mellitus: (6) Hyperlipidemia: (7) Chronic kidney disease, stage V: (8) ESRD needing dialysis: Admission and Anticipated Discharge Date Admission Date: November 05, 2022 Supervising Physician Co-Signing Physician Notes The patient was seen by me. The chart was reviewed. Case discussed with DIVINE Pardo. Agree with assessment and plan Subjective eval this morning with daughter (RN) and at bedside had procedure on fistula on 11/[address] Potter, felt ok at d/c but around 2am overnight w/ discomfort. Additional episodes yesterday in AM around 4am in ER after initial nitro. Reports has not had any further chest pain (prior reported down his arm as well) since being on heparin gtt. Follows with Dr Flores, family states they did see him around but not officially seen by him. Had a magneto electrician do echo at bedside. Follows hematology at [place] (prior w/ coordination w/ Ольга Singh). No recent illness/bleeding. Did note hemoglobin lower pre-op. Known murmur on examination. He has had blood transfusions in the past, about 9of them, following stem cell. Is on transplant list and wanting to avoid blood transfusion at this time and seen by Dr Parr who is going to order EPO/venofer. Review of Systems Review of Systems: All systems reviewed & are unremarkable except as noted in HPI & below Physical Exam Physical Exam: General:WD/WN male sitting up in bed, and daughter at bedside, NAD, general pallor HEENT: head atraumatic, normocephalic, pupils equal Resp: CTA, no w/c, on room air CV: irregularly irregular (rates 70s), +systolic murmur, no pitting edema/calf tenderness +AV fistula LEFT arm, +THRILL slight surrounding ecchymosis, no warmth/erythema, sensation intact GI: +BS, soft/NT : no nolasco MSK/Neuro: no focal deficit Psych: AOX3, pleasant and cooperative Results & Data Results & Data Vital Signs (Past 12 Hours) Vital Signs Temp Pulse Resp BP Pulse Ox Pulse Ox O2 Del Method 11/06/22 07:33 36.9 C 77 20 96/60 L 97 Room Air 11/06/22 03:32 36.6 C 73 19 99/61 L 96 Room Air 11/05/22 23:12 82 19 119/70 98 Room Air 11/05/22 20:46 36.9 C 82 18 113/70 98 Room Air 11/05/22 20:46 98 O2 Del Method 11/06/22 07:33 11/06/22 03:32 11/05/22 23:12 11/05/22 20:46 11/05/22 20:46 Room Air Laboratory Results 11/06/22 11/06/22 11/06/22 Range/Units Unknown 12:39 12:39 WBC 5.10 (4.8-10.8) K/ul RBC 2.28 L (4.70-6.10) M/uL Hgb 7.8 L (14.0-18.0) g/dl Hct 22.7 L (42.0-52.0) % MCV 99.6 (80.0-100.0) fL MCH 34.2 H (25.0-34.0) pg MCHC 34.4 (32.0-36.0) g/dL RDW Std Deviation 53.9 H (36.4-46.3) fL RDW Coeff of Krish 15.0 H (11.5-14.5) % Plt Count 172 (130-400) K/uL MPV 10.1 (9.4-12.4) fL Immature Gran % (Auto) % Neut % (Auto) % Lymph % (Auto) % Leon % (Auto) % Eos % (Auto) % Baso % (Auto) % Neut # (Auto) (1.40-6.50) K/uL Lymph # (Auto) (1.2-3.4) K/uL Leon # (Auto) (0.11-0.59) K/uL Eos # (Auto) (0-0.50) K/uL Baso # (Auto) (0-0.2) K/uL Immature Gran # (Auto) (0.01-0.20) K/uL Polychromasia PT (9.0-12.0) Seconds INR (0.9-1.1) APTT (21.0-31.0) Seconds PTT Ratio Sodium (136-145) mmol/L Potassium (3.5-5.1) mmol/L Chloride (98-107) mmol/L Carbon Dioxide (21-32) mmol/L Anion Gap (3-11) BUN (6-23) mg/dl Creatinine (0.6-1.4) mg/dl Est Cr Clr Drug Dosing ml/min Est GFR ( Amer) ml/min Est GFR (Non-Af Amer) ml/min BUN/Creatinine Ratio (10-20) Glucose (70-99(Fasting)) mg/dl POC Glucose (70-99) mg/dl Calcium (8.5-10.1) mg/dl Iron (35-175) mcg/dl TIBC (250-450) mcg/dl Unsaturated IBC (155-355) mcg/dl Transferrin % Sat (20-50) % Ferritin (8-388) ng/ml Total Bilirubin (0.2-1.0) mg/dl AST (13-39) U/L ALT (7-52) U/L Alkaline Phosphatase (34-104) U/L Troponin I High Sens 41.7 H (0-20) pg/ml Total Protein (6.0-8.3) gm/dl Albumin (3.4-5.0) gm/dl Globulin (2.5-4.0) gm/dl Albumin/Globulin Ratio (0.9-2) Lipase (11-82) U/L Vitamin B12 (180-914) pg/ml Folate (>5.38) ng/ml TSH (0.300-4.500) uIu/ml Nasal Screen MRSA (PCR) Negative (Negative) SARS-CoV-2, RNA, NAAT (NEGATIVE) 11/06/22 11/06/22 11/06/22 Range/Units 11:32 08:38 08:38 WBC (4.8-10.8) K/ul RBC (4.70-6.10) M/uL Hgb (14.0-18.0) g/dl Hct (42.0-52.0) % MCV (80.0-100.0) fL MCH (25.0-34.0) pg MCHC (32.0-36.0) g/dL RDW Std Deviation (36.4-46.3) fL RDW Coeff of Krish (11.5-14.5) % Plt Count (130-400) K/uL MPV (9.4-12.4) fL Immature Gran % (Auto) % Neut % (Auto) % Lymph % (Auto) % Leon % (Auto) % Eos % (Auto) % Baso % (Auto) % Neut # (Auto) (1.40-6.50) K/uL Lymph # (Auto) (1.2-3.4) K/uL Leon # (Auto) (0.11-0.59) K/uL Eos # (Auto) (0-0.50) K/uL Baso # (Auto) (0-0.2) K/uL Immature Gran # (Auto) (0.01-0.20) K/uL Polychromasia PT (9.0-12.0) Seconds INR (0.9-1.1) APTT (21.0-31.0) Seconds PTT Ratio Sodium (136-145) mmol/L Potassium (3.5-5.1) mmol/L Chloride (98-107) mmol/L Carbon Dioxide (21-32) mmol/L Anion Gap (3-11) BUN (6-23) mg/dl Creatinine (0.6-1.4) mg/dl Est Cr Clr Drug Dosing ml/min Est GFR ( Amer) ml/min Est GFR (Non-Af Amer) ml/min BUN/Creatinine Ratio (10-20) Glucose (70-99(Fasting)) mg/dl POC Glucose 88 (70-99) mg/dl Calcium (8.5-10.1) mg/dl Iron (35-175) mcg/dl TIBC (250-450) mcg/dl Unsaturated IBC (155-355) mcg/dl Transferrin % Sat (20-50) % Ferritin (8-388) ng/ml Total Bilirubin (0.2-1.0) mg/dl AST (13-39) U/L ALT (7-52) U/L Alkaline Phosphatase (34-104) U/L Troponin I High Sens (0-20) pg/ml Total Protein (6.0-8.3) gm/dl Albumin (3.4-5.0) gm/dl Globulin (2.5-4.0) gm/dl Albumin/Globulin Ratio (0.9-2) Lipase (11-82) U/L Vitamin B12 > 1500 H (180-914) pg/ml Folate > 22.30 (>5.38) ng/ml TSH 3.569 (0.300-4.500) uIu/ml Nasal Screen MRSA (PCR) (Negative) SARS-CoV-2, RNA, NAAT (NEGATIVE) 11/06/22 11/06/22 11/06/22 Range/Units 07:48 07:32 06:11 WBC (4.8-10.8) K/ul RBC (4.70-6.10) M/uL Hgb (14.0-18.0) g/dl Hct (42.0-52.0) % MCV (80.0-100.0) fL MCH (25.0-34.0) pg MCHC (32.0-36.0) g/dL RDW Std Deviation (36.4-46.3) fL RDW Coeff of Krish (11.5-14.5) % Plt Count (130-400) K/uL MPV (9.4-12.4) fL Immature Gran % (Auto) % Neut % (Auto) % Lymph % (Auto) % Leon % (Auto) % Eos % (Auto) % Baso % (Auto) % Neut # (Auto) (1.40-6.50) K/uL Lymph # (Auto) (1.2-3.4) K/uL Leon # (Auto) (0.11-0.59) K/uL Eos # (Auto) (0-0.50) K/uL Baso # (Auto) (0-0.2) K/uL Immature Gran # (Auto) (0.01-0.20) K/uL Polychromasia PT (9.0-12.0) Seconds INR (0.9-1.1) APTT 45.0 H (21.0-31.0) Seconds PTT Ratio 1.6 Sodium (136-145) mmol/L Potassium (3.5-5.1) mmol/L Chloride (98-107) mmol/L Carbon Dioxide (21-32) mmol/L Anion Gap (3-11) BUN (6-23) mg/dl Creatinine (0.6-1.4) mg/dl Est Cr Clr Drug Dosing ml/min Est GFR ( Amer) ml/min Est GFR (Non-Af Amer) ml/min BUN/Creatinine Ratio (10-20) Glucose (70-99(Fasting)) mg/dl POC Glucose 99 (70-99) mg/dl Calcium (8.5-10.1) mg/dl Iron 66 (35-175) mcg/dl TIBC 192 L (250-450) mcg/dl Unsaturated IBC 126 L (155-355) mcg/dl Transferrin % Sat 34 (20-50) % Ferritin 839.5 H (8-388) ng/ml Total Bilirubin (0.2-1.0) mg/dl AST (13-39) U/L ALT (7-52) U/L Alkaline Phosphatase (34-104) U/L Troponin I High Sens 47.3 H (0-20) pg/ml Total Protein (6.0-8.3) gm/dl Albumin (3.4-5.0) gm/dl Globulin (2.5-4.0) gm/dl Albumin/Globulin Ratio (0.9-2) Lipase (11-82) U/L Vitamin B12 (180-914) pg/ml Folate (>5.38) ng/ml TSH (0.300-4.500) uIu/ml Nasal Screen MRSA (PCR) (Negative) SARS-CoV-2, RNA, NAAT (NEGATIVE) 11/06/22 11/06/22 11/06/22 Range/Units 06:11 06:11 00:31 WBC 5.29 (4.8-10.8) K/ul RBC 2.14 L (4.70-6.10) M/uL Hgb 7.5 L (14.0-18.0) g/dl Hct 21.5 L (42.0-52.0) % MCV 100.5 H (80.0-100.0) fL MCH 35.0 H (25.0-34.0) pg MCHC 34.9 (32.0-36.0) g/dL RDW Std Deviation 52.0 H (36.4-46.3) fL RDW Coeff of Krish 14.8 H (11.5-14.5) % Plt Count 167 (130-400) K/uL MPV 10.0 (9.4-12.4) fL Immature Gran % (Auto) 0.2 % Neut % (Auto) 58.7 % Lymph % (Auto) 28.5 % Leon % (Auto) 9.5 % Eos % (Auto) 2.5 % Baso % (Auto) 0.6 % Neut # (Auto) 3.11 (1.40-6.50) K/uL Lymph # (Auto) 1.51 (1.2-3.4) K/uL Leon # (Auto) 0.50 (0.11-0.59) K/uL Eos # (Auto) 0.13 (0-0.50) K/uL Baso # (Auto) 0.03 (0-0.2) K/uL Immature Gran # (Auto) 0.01 (0.01-0.20) K/uL Polychromasia 1+ PT (9.0-12.0) Seconds INR (0.9-1.1) APTT (21.0-31.0) Seconds PTT Ratio Sodium 142 (136-145) mmol/L Potassium 3.7 (3.5-5.1) mmol/L Chloride 99 (98-107) mmol/L Carbon Dioxide 35 H (21-32) mmol/L Anion Gap 8 (3-11) BUN 21 (6-23) mg/dl Creatinine 5.19 H* D (0.6-1.4) mg/dl Est Cr Clr Drug Dosing 11.6 ml/min Est GFR ( Amer) 11.8 ml/min Est GFR (Non-Af Amer) 10.2 ml/min BUN/Creatinine Ratio 4.0 L (10-20) Glucose 97 (70-99(Fasting)) mg/dl POC Glucose (70-99) mg/dl Calcium 8.3 L (8.5-10.1) mg/dl Iron (35-175) mcg/dl TIBC (250-450) mcg/dl Unsaturated IBC (155-355) mcg/dl Transferrin % Sat (20-50) % Ferritin (8-388) ng/ml Total Bilirubin (0.2-1.0) mg/dl AST (13-39) U/L ALT (7-52) U/L Alkaline Phosphatase (34-104) U/L Troponin I High Sens 43.0 H D (0-20) pg/ml Total Protein (6.0-8.3) gm/dl Albumin (3.4-5.0) gm/dl Globulin (2.5-4.0) gm/dl Albumin/Globulin Ratio (0.9-2) Lipase (11-82) U/L Vitamin B12 (180-914) pg/ml Folate (>5.38) ng/ml TSH (0.300-4.500) uIu/ml Nasal Screen MRSA (PCR) (Negative) SARS-CoV-2, RNA, NAAT (NEGATIVE) 11/05/22 11/05/22 11/05/22 Range/Units Unknown 22:43 21:02 WBC (4.8-10.8) K/ul RBC (4.70-6.10) M/uL Hgb (14.0-18.0) g/dl Hct (42.0-52.0) % MCV (80.0-100.0) fL MCH (25.0-34.0) pg MCHC (32.0-36.0) g/dL RDW Std Deviation (36.4-46.3) fL RDW Coeff of Krish (11.5-14.5) % Plt Count (130-400) K/uL MPV (9.4-12.4) fL Immature Gran % (Auto) % Neut % (Auto) % Lymph % (Auto) % Leon % (Auto) % Eos % (Auto) % Baso % (Auto) % Neut # (Auto) (1.40-6.50) K/uL Lymph # (Auto) (1.2-3.4) K/uL Leon # (Auto) (0.11-0.59) K/uL Eos # (Auto) (0-0.50) K/uL Baso # (Auto) (0-0.2) K/uL Immature Gran # (Auto) (0.01-0.20) K/uL Polychromasia PT (9.0-12.0) Seconds INR (0.9-1.1) APTT 44.4 H (21.0-31.0) Seconds PTT Ratio 1.6 Sodium (136-145) mmol/L Potassium (3.5-5.1) mmol/L Chloride (98-107) mmol/L Carbon Dioxide (21-32) mmol/L Anion Gap (3-11) BUN (6-23) mg/dl Creatinine (0.6-1.4) mg/dl Est Cr Clr Drug Dosing ml/min Est GFR ( Amer) ml/min Est GFR (Non-Af Amer) ml/min BUN/Creatinine Ratio (10-20) Glucose (70-99(Fasting)) mg/dl POC Glucose 122 H (70-99) mg/dl Calcium (8.5-10.1) mg/dl Iron (35-175) mcg/dl TIBC (250-450) mcg/dl Unsaturated IBC (155-355) mcg/dl Transferrin % Sat (20-50) % Ferritin (8-388) ng/ml Total Bilirubin (0.2-1.0) mg/dl AST (13-39) U/L ALT (7-52) U/L Alkaline Phosphatase (34-104) U/L Troponin I High Sens (0-20) pg/ml Total Protein (6.0-8.3) gm/dl Albumin (3.4-5.0) gm/dl Globulin (2.5-4.0) gm/dl Albumin/Globulin Ratio (0.9-2) Lipase (11-82) U/L Vitamin B12 (180-914) pg/ml Folate (>5.38) ng/ml TSH (0.300-4.500) uIu/ml Nasal Screen MRSA (PCR) (Negative) SARS-CoV-2, RNA, NAAT NEGATIVE (NEGATIVE) 11/05/22 11/05/22 11/05/22 Range/Units 18:56 17:29 14:46 WBC (4.8-10.8) K/ul RBC (4.70-6.10) M/uL Hgb (14.0-18.0) g/dl Hct (42.0-52.0) % MCV (80.0-100.0) fL MCH (25.0-34.0) pg MCHC (32.0-36.0) g/dL RDW Std Deviation (36.4-46.3) fL RDW Coeff of Krish (11.5-14.5) % Plt Count (130-400) K/uL MPV (9.4-12.4) fL Immature Gran % (Auto) % Neut % (Auto) % Lymph % (Auto) % Leon % (Auto) % Eos % (Auto) % Baso % (Auto) % Neut # (Auto) (1.40-6.50) K/uL Lymph # (Auto) (1.2-3.4) K/uL Leon # (Auto) (0.11-0.59) K/uL Eos # (Auto) (0-0.50) K/uL Baso # (Auto) (0-0.2) K/uL Immature Gran # (Auto) (0.01-0.20) K/uL Polychromasia PT 10.2 (9.0-12.0) Seconds INR 1.0 (0.9-1.1) APTT 24.1 (21.0-31.0) Seconds PTT Ratio 0.9 Sodium (136-145) mmol/L Potassium (3.5-5.1) mmol/L Chloride (98-107) mmol/L Carbon Dioxide (21-32) mmol/L Anion Gap (3-11) BUN (6-23) mg/dl Creatinine (0.6-1.4) mg/dl Est Cr Clr Drug Dosing ml/min Est GFR ( Amer) ml/min Est GFR (Non-Af Amer) ml/min BUN/Creatinine Ratio (10-20) Glucose (70-99(Fasting)) mg/dl POC Glucose (70-99) mg/dl Calcium (8.5-10.1) mg/dl Iron (35-175) mcg/dl TIBC (250-450) mcg/dl Unsaturated IBC (155-355) mcg/dl Transferrin % Sat (20-50) % Ferritin (8-388) ng/ml Total Bilirubin (0.2-1.0) mg/dl AST (13-39) U/L ALT (7-52) U/L Alkaline Phosphatase (34-104) U/L Troponin I High Sens 25.9 H 20.8 H (0-20) pg/ml Total Protein (6.0-8.3) gm/dl Albumin (3.4-5.0) gm/dl Globulin (2.5-4.0) gm/dl Albumin/Globulin Ratio (0.9-2) Lipase (11-82) U/L Vitamin B12 (180-914) pg/ml Folate (>5.38) ng/ml TSH (0.300-4.500) uIu/ml Nasal Screen MRSA (PCR) (Negative) SARS-CoV-2, RNA, NAAT (NEGATIVE) 11/05/22 11/05/22 Range/Units 14:46 14:46 WBC 4.98 (4.8-10.8) K/ul RBC 2.37 L (4.70-6.10) M/uL Hgb 8.2 L (14.0-18.0) g/dl Hct 23.3 L (42.0-52.0) % MCV 98.3 (80.0-100.0) fL MCH 34.6 H (25.0-34.0) pg MCHC 35.2 (32.0-36.0) g/dL RDW Std Deviation 49.3 H (36.4-46.3) fL RDW Coeff of Krish 14.2 (11.5-14.5) % Plt Count 187 (130-400) K/uL MPV 10.0 (9.4-12.4) fL Immature Gran % (Auto) 0.4 % Neut % (Auto) 74.7 % Lymph % (Auto) 16.3 % Leon % (Auto) 5.8 % Eos % (Auto) 2.4 % Baso % (Auto) 0.4 % Neut # (Auto) 3.72 (1.40-6.50) K/uL Lymph # (Auto) 0.81 L (1.2-3.4) K/uL Leon # (Auto) 0.29 (0.11-0.59) K/uL Eos # (Auto) 0.12 (0-0.50) K/uL Baso # (Auto) 0.02 (0-0.2) K/uL Immature Gran # (Auto) 0.02 (0.01-0.20) K/uL Polychromasia PT (9.0-12.0) Seconds INR (0.9-1.1) APTT (21.0-31.0) Seconds PTT Ratio Sodium 143 (136-145) mmol/L Potassium 3.2 L (3.5-5.1) mmol/L Chloride 97 L (98-107) mmol/L Carbon Dioxide 35 H (21-32) mmol/L Anion Gap 11 (3-11) BUN 15 (6-23) mg/dl Creatinine 3.60 H (0.6-1.4) mg/dl Est Cr Clr Drug Dosing 17.9 ml/min Est GFR ( Amer) 18.4 ml/min Est GFR (Non-Af Amer) 15.9 ml/min BUN/Creatinine Ratio 4.2 L (10-20) Glucose 140 H (70-99(Fasting)) mg/dl POC Glucose (70-99) mg/dl Calcium 8.9 (8.5-10.1) mg/dl Iron (35-175) mcg/dl TIBC (250-450) mcg/dl Unsaturated IBC (155-355) mcg/dl Transferrin % Sat (20-50) % Ferritin (8-388) ng/ml Total Bilirubin 0.5 (0.2-1.0) mg/dl AST 17 (13-39) U/L ALT 10 (7-52) U/L Alkaline Phosphatase 57 (34-104) U/L Troponin I High Sens 15.5 (0-20) pg/ml Total Protein 6.3 (6.0-8.3) gm/dl Albumin 4.5 (3.4-5.0) gm/dl Globulin 1.8 L (2.5-4.0) gm/dl Albumin/Globulin Ratio 2.5 H (0.9-2) Lipase 27 (11-82) U/L Vitamin B12 (180-914) pg/ml Folate (>5.38) ng/ml TSH (0.300-4.500) uIu/ml Nasal Screen MRSA (PCR) (Negative) SARS-CoV-2, RNA, NAAT (NEGATIVE) PG Care Time/CCT Total # of Minutes Spent Total Time Spent with Patient: Total time spent is greater than 50% in coordination of care (as documented) at patient's floor/unit and/or counseling patient: Coding Level of Care Code 45078 SUB INP/OBS CARE 3/50MIN Diagnoses Chest pain R07.9 Anemia D64.9 HTN (hypertension) I10 Chronic kidney disease N18.9 Type 2 diabetes mellitus E11.9 Hyperlipidemia E78.5 Chronic kidney disease, stage V N18.5 ESRD needing dialysis N18.6; Z99.2
[2022-11-06 08:37] LABS: Troponin I High Sensitivity 47.3 pg/ml (0-20)
[2022-11-06] MEDS: DOXYCYCLINE HYCLATE 100 MG CAP PO SCH ×2 (08:40→20:35)
[2022-11-06] MEDS: SEVELAMER HCL 800 MG TABLET PO SCH ×3 (08:40→17:16)
[2022-11-06] MEDS: ACYCLOVIR 400 MG TAB PO SCH (08:41)
[2022-11-06] MEDS: allopurinoL 100 MG TAB PO SCH (08:41)
[2022-11-06] MEDS: amLODIPine BESYLATE 5 MG TAB PO SCH (08:45)
[2022-11-06] MEDS: FLUTICASONE FUROATE 100MCG 14 PUFFS/INHALER INH SCH (08:46)
[2022-11-06 08:55] LABS: Ferritin 839.5 ng/ml (8-388)
[2022-11-06] MEDS ORDERED: FLUTICASONE HFA 110MCG INHALER INH SCH (09:00)
[2022-11-06] MEDS ORDERED: MONTELUKAST SODIUM 10 MG TABLET PO SCH (09:00)
[2022-11-06] MEDS ORDERED: CYANOCOBALAMIN 1000 MCG/ML VIAL IM SCH (09:00)
--- NOTE | 2022-11-06 09:21 | Nephrology Consultation ---
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 On IHD since 05/08 * HD TTS at [facility] (Dr. Marcus): 3hr 45min, F-160NR, 2K 2Ca, Na 140, HCO3 38, T 37, EDW 75kg, 16g needles * Currently undergoing transplant evaluation at [facility] * Volume status and electrolyte balance are currently acceptable. No acute indication for HD today (2) PAF (paroxysmal atrial fibrillation): * Admitted w/ atrial fibrillation w/ RVR * Currently on heparin gtt (3) Anemia: * Patient denies overt blood loss * AVF site without ecchymosis, hematoma * Will order FOBT * Monitor for bleeding while on heparin gtt * B12 and folate are acceptable * Iron saturation is low normal. 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 Mccoy is a 72 year old male who is seen at the request of the hospitalist service to provide HD and assist w/ medical management. Information for the HPI is obtained from patient interview and review of EMR. 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 He underwent autologous stem cell transplantation 04/05 and has been in remission. Recent echocardiogram revealed LVEF 60-65% w/ grade I diastolic dysfunction and PASP 39 mm Hg. Unfortunately Mr. Mccoy progressed to ESKD and required initiation of IHD 05/08. 11/04/22 Mr. 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 There were no complications during the procedure. 11/05/22 Mr. Mccoy presented to the [facility] for evaluation of chest discomfort following dialysis. He was found to have new onset atrial fibrillation and Hgb was 7.5. Allergies Allergy/AdvReac Type Severity Reaction Status Date / Time clindamycin Allergy Severe Rash Verified 11/05/22 16:53 Sulfa (Sulfonamide Allergy Intermediate diarrhea, Verified 11/05/22 16:53 Antibiotics) rash cefprozil [From Cefzil] AdvReac Intermediate Diarrhea Verified 11/05/22 16:53 Home Medications Medication Instructions Recorded Confirmed Type tamsulosin 0.4 mg capsule 0.4 mg PO QPM 12/17/18 11/05/22 History doxycycline monohydrate 100 mg 100 mg PO BID 05/10/19 11/05/22 History capsule montelukast 10 mg tablet 10 mg PO DAILY 05/15/20 11/05/22 History (Singulair) amlodipine 10 mg tablet 10 mg PO DAILY 12/29/20 11/05/22 History cyanocobalamin (vitamin B-12) 1,000 mcg IM MONTHLY 12/29/20 11/05/22 History 1,000 mcg/mL injection solution fluticasone propionate 110 1 puff inhalation QAM 12/29/20 11/05/22 History mcg/actuation HFA aerosol inhaler (Flovent HFA) allopurinol 100 mg tablet 100 mg PO DAILY 01/13/21 11/05/22 History furosemide 20 mg tablet 20 mg PO DAILY PRN Fluid Retention 01/13/21 11/05/22 History insulin aspart U-100 100 unit/mL 0 unit subcut UD 01/13/21 11/05/22 History (3 mL) subcutaneous pen (Novolog FlexPen U-100 Insulin aspart) trazodone 50 mg tablet 100 mg PO HS 01/13/21 11/05/22 History sevelamer carbonate 800 mg tablet 800 mg PO TID #270 tabs 10/11/22 11/05/22 Rx acyclovir 400 mg tablet 400 mg PO DAILY 11/04/22 11/05/22 History Patient History Medical History Amyloidosis ON CHEMO CYBORD- EVERY FRIDAY IV INFUSION INCLUDING DEXAMETHASONE (40MG DURING INFUSION PER HEME/ONC)- AMYLOIDOSIS DX 2/2 WORKUP FOR CKD Anemia CHRONIC; BASELINE HGB 9-10 RANGE PER CHART REVIEW Anemia in chronic kidney disease (CKD) ESRD (end stage renal disease) NO DIALYSIS INDICATION AT THIS TIME; AVF PLACEMENT IN CASE DIALYSIS NEEDED IN FUTURE ESRD needing dialysis Herpes zoster Hypercalcemia Hyperphosphatemia Hypertension Metabolic acidosis Myofascial pain Osteoarthritis Pneumonia 11/2018- SYMPTOMS RESOLVED S/P ABX Pulmonary hypertension MILD (RSVP 44MMHG) Secondary hyperparathyroidism of renal origin Type 2 diabetes mellitus DIET CONTROLLED Vitamin D deficiency Surgical History H/O stem cell transplant History of back surgery Total knee replacement status RIGHT/LEFT Family History Father Family history of diabetes mellitus Social History Smoking Status: Former smoker Second Hand Exposure: No; Do You Dip or Chew Tobacco: No; Tobacco Cessation Education Requested by Patient: No Hx Alcohol Use: No Hx Substance Use: No Preferred Language: Occitan Communication Ability: Effective [place] Required: No Beliefs That Will Affect Care: None Current Living Situation: Spouse Other Information That Helps Us Care for You: No Feels Safe at Home: Yes Safety Concerns: Feels Safe At This Time Assistive Devices: None Review of Systems Constitutional: no fever Eyes: no problem reported Ear, Nose, Mouth, Throat: no problem reported Respiratory: no cough and no dyspnea Cardiovascular: no chest pain Gastrointestinal: no abdominal pain, no nausea, no vomiting and no diarrhea/loose stools Genitourinary: no dysuria Physical Exam Constitutional: not in distress Eyes: PERRL, conjunctivae normal, anicteric sclerae ENMT: external ear and nose normal, oropharynx normal Neck: trachea midline, no thyromegaly Respiratory: normal respiratory effort, lungs clear to auscultation Cardiovascular: RRR, no murmur, no edema Extremities: + AV fistula (L BC AVF + bruit. No surrounding hematoma) Neurologic: awake; not confused Results & Data Vital Signs (Past 12 Hours) Vital Signs Temp Pulse Resp BP Pulse Ox O2 Del Method 11/06/22 07:33 36.9 C 77 20 96/60 L 97 Room Air 11/06/22 03:32 36.6 C 73 19 99/61 L 96 Room Air 11/05/22 23:12 82 19 119/70 98 Room Air Laboratory Results Laboratory Tests 11/05/22 11/05/22 11/05/22 17:29 18:56 Unknown WBC Hgb Hct Plt Count Sodium Potassium Chloride Carbon Dioxide BUN Creatinine Glucose Calcium Transferrin % Sat Ferritin Troponin I High Sens 20.8 H 25.9 H SARS-CoV-2, RNA, NAAT NEGATIVE 11/06/22 11/06/22 11/06/22 00:31 06:11 06:11 WBC 5.29 Hgb 7.5 L Hct 21.5 L Plt Count 167 Sodium 142 Potassium 3.7 Chloride 99 Carbon Dioxide 35 H BUN 21 Creatinine 5.19 H* D Glucose 97 Calcium 8.3 L Transferrin % Sat Ferritin Troponin I High Sens 43.0 H D SARS-CoV-2, RNA, NAAT 11/06/22 07:48 WBC Hgb Hct Plt Count Sodium Potassium Chloride Carbon Dioxide BUN Creatinine Glucose Calcium Transferrin % Sat 34 Ferritin 839.5 H Troponin I High Sens 47.3 H SARS-CoV-2, RNA, NAAT Diagnostic Findings 11/05/22 ECG: atrial fibrillation w/ RVR 11/05/22 CXR: Cardiomediastinal and hilar silhouettes are within normal limits. Mild right hemidiaphragmatic elevation again noted. No pneumothorax, pleural effusion, airspace consolidation or pulmonary edema. Bones appear grossly intact. Left shoulder rotator cuff calcific tendinosis. PG Care Time/CCT Total # of Minutes Spent Total Time Spent with Patient: Total time spent is greater than 50% in coordination of care (as documented) at patient's floor/unit and/or counseling patient: Coding Level of Care Code 85556 IN/OBS CONSULT LVL 5,80M Diagnoses ESRD needing dialysis N18.6; Z99.2 PAF (paroxysmal atrial fibrillation) I48.0 Anemia D64.9 Amyloidosis E85.9 Amyloidosis type: unspecified amyloidosis (4) Amyloidosis Amyloidosis type: unspecified amyloidosis Qualified Code(s): E85.9 - Amyloidosis, unspecified
--- NOTE | 2022-11-06 10:57 | XCELERA ---
[id number]
[2022-11-06 11:17] LABS: Vitamin B12 > 1500 pg/ml (180-914)
--- NOTE | 2022-11-06 11:55 | Electrocardiogram Report ---
Test Reason : Blood Pressure : / mmHG Vent. Rate : 110 BPM Atrial Rate : 110 BPM P-R Int : 200 ms QRS Dur : 090 ms QT Int : 382 ms P-R-T Axes : 000 -40 067 degrees QTc Int : 516 ms Poor data quality, interpretation may be adversely affected Sinus tachycardia with Premature atrial complexes Left axis deviation Low voltage QRS Poor R wave progression, consider anterior DC vs. lead placement vs. LVH Abnormal ECG When compared with ECG of 17-JAN-2021 12:19, Premature atrial complexes are now Present Confirmed by Tre Flowers ([id number]) on 11/06/2022 11:54:36 AM Referred By: Confirmed By:Jose Flowers
[2022-11-06] MEDS ORDERED: EPOETIN ALFA 20,000 UNITS/ML VIAL SQ ONE (12:21)
[2022-11-06] MEDS: IRON SUCROSE 300 MG in SODIUM CHLORIDE 0.9% 250 ML IV SCH (13:06)
[2022-11-06 13:30] LABS: Hematocrit (blood only) 22.7 % (42.0-52.0); Hemoglobin 7.8 g/dl (14.0-18.0); Mean Corpuscular Hemoglobin 34.2 pg (25.0-34.0); Mean Corpuscular Hgb Conc 34.4 g/dL (32.0-36.0); Mean Corpuscular Volume 99.6 fL (80.0-100.0); Mean Platelet Volume 10.1 fL (9.4-12.4); Platelet Count 172 K/uL (130-400); RDW Standard Deviation 53.9 fL (36.4-46.3); Red Blood Count 2.28 M/uL (4.70-6.10)
[2022-11-06 16:34] LABS: Partial Thromboplastin Time 53.9 Seconds (21.0-31.0)
[2022-11-06] MEDS: HEPARIN SODIUM/DEXTROSE 25,000 UNITS/500 ML BAG IV SCH (18:40)
[2022-11-06] MEDS: TAMSULOSIN HCL 0.4 MG CAP PO SCH (20:35)
[2022-11-06] MEDS: traZODone HCL 100 MG TAB PO SCH (20:35)
[2022-11-07] MEDS ORDERED: SODIUM CHLORIDE 0.9% 1000ML 1,000 ML IV PRN (07:00)
[2022-11-07] MEDS ORDERED: HEPARIN SOD (PORCINE) 1000 UNIT/ML IV ONE (07:00)
[2022-11-07] MEDS ORDERED: HEPARIN SOD (PORCINE) 1000 UNIT/ML IV SCH (07:00)
[2022-11-07 07:26] LABS: Basophils # (auto) 0.04 K/uL (0-0.2); Basophils % (auto) 0.8 %; Eosinophils # (auto) 0.21 K/uL (0-0.50); Eosinophils % (auto) 4.3 %; Hematocrit (blood only) 21.3 % (42.0-52.0); Hemoglobin 7.5 g/dl (14.0-18.0); Immature Granulocytes # (auto) 0.03 K/uL (0.01-0.20); Immature Granulocytes % (auto) 0.6 %; Lymphocytes # (auto) 1.25 K/uL (1.2-3.4); Lymphocytes % (auto) 25.4 %; Mean Corpuscular Hemoglobin 34.9 pg (25.0-34.0); Mean Corpuscular Hgb Conc 35.2 g/dL (32.0-36.0); Mean Corpuscular Volume 99.1 fL (80.0-100.0); Mean Platelet Volume 10.1 fL (9.4-12.4); Monocytes # (auto) 0.48 K/uL (0.11-0.59); Monocytes % (auto) 9.8 %; Neutrophils # (auto) 2.91 K/uL (1.40-6.50); Neutrophils % (auto) 59.1 %; Platelet Count 165 K/uL (130-400); RDW Coefficient of Variation 14.7 % (11.5-14.5); RDW Standard Deviation 52.6 fL (36.4-46.3); Red Blood Count 2.15 M/uL (4.70-6.10); White Blood Count 4.92 K/ul (4.8-10.8)
[2022-11-07 07:34] LABS: Albumin Globulin Ratio 2.1 (0.9-2); Albumin Level 3.8 gm/dl (3.4-5.0); BUN Creatinine Ratio 5.1 (10-20); Bilirubin,Total 0.4 mg/dl (0.2-1.0); Creatinine Clr Calc Pharmacy 8.6 ml/min; Est GFR (African American) 8.2 ml/min; Est GFR (Non-African American) 7.1 ml/min; Globulin 1.8 gm/dl (2.5-4.0); Total Protein 5.6 gm/dl (6.0-8.3)
[2022-11-07 07:54] LABS: Polychromasia 1+
--- NOTE | 2022-11-07 08:05 | Hospitalist Progress Note ---
Date of Service November 07, 2022 Assessment & Plan (1) Chest pain: Plan: Chest pain,? NSTEMI Patient with chest pain, diaphoresis postdialysis with recurrent sensation SIGNIFICANT chest pain w/ radiation to arms, relieved w/ Nitro Discussed on admit w/ vascular given recent balloon angioplasty -- low suspicion for procedural thromboembolism and no further tx change at this time In ER received 1X nitro with complete resolution of symptoms. Subsequently became diaphoretic and ill-appearing, EKG showed diffuse ST depressions. Symptoms resolved with second nitro, patient had received full dose aspirin. Was placed on low-dose heparin drip Cardiology consulted -- no wma on echo at bedside, no cardiac cath recommended Continue heparin gtt Trop 20.8--> 25.9 --> 43--> 47.3 peaked, repeat 41.7, demand ischemic from elevated heart rate. ECHO w/ no new wma 11/07--> Remained CP free overnight on heparin. Per discussion w/ cards ok to discontinue. NO AFIB on monitor, sinus tachycardia noted. 7 beat run vtach overnight , they are adding low dose metoprolol 12.5mg daily ?esophageal spasm -- patient already on max dose amlodipine, ?hydralazine -- defer to cards if any recurrance of CP reported once DISCONTINUING HEPARIN GTT Nephrology consulted -- avoiding PRBC given working for transplant unless hgb <7 Given EPO/Venofer IV on 11/06 and continuing daily IV venofer while inpatient s/p HD for today Monitor for any recurrence of chest pain off heparin. If no issues, ok from cards for dc Anemia Chronic however does appear worsening over 1-2 years, no bleeding reported Hgb 7.5, avoiding transfusion given on list for transplant Venofer/EPO 11/06 as above and continuing Venofer IV daily while inpatient FECAL OCCULT NEGATIVE Discontinue heparin today as above, monitor for any recurrence of CP Non-anuric ESRD on dialysis 11/04/2022 fistulogram: Widely patent fistula, 2 areas of 90% stenosis at the shoulder level which were dilated. Proximal residual area was then subsequently dilated. Good results with no narrowing seen, adequate hemostasis, no complications at time of procedure. 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 Not an uric, but requires Friday dialysis Undergoing HD TTS at [facility], undergoing transplant eval at [facility] s/p HD 11/06 Renal dose meds/avoid nephrotoxins when able Monitor BMP History of amyloid Continue doxycycline for anti-amyloid effects Patient reports he is doing very well post autologous transplant with no ongoing immunosuppressants/treatments required other than doxycycline History of DM 2 No longer on insulin, adequate treatment with dialysis Last A1c 6.2% Follow BSG, if greater than 180 may resume basal bolus weight-based BMP daily Hypertension Continue amlodipine 10mg daily Cards ordered metoprolol for AM as well, will need to monitor Atrial Fibrillation NOT felt to be afib, but rather sinus tachy per cards No anticoagulation Can d/c Heparin Did start low dose metoprolol for AM given vtach overnight TSH wnl DC heparin and monitor (2) Anemia: (3) HTN (hypertension): (4) Chronic kidney disease: (5) Type 2 diabetes mellitus: (6) Hyperlipidemia: (7) Chronic kidney disease, stage V: (8) ESRD needing dialysis: Plan continued inpatient stay monitoring for any chest pain OFF of heparin possible d/c tomorrow Admission and Anticipated Discharge Date Admission Date: November 05, 2022 Supervising Physician Co-Signing Physician Notes The patient was not seen by me. The chart was reviewed. Case discussed with DIVINE Pardo. Agree with assessment and plan Subjective eval after lunch, just completed HD doing well, no further CP. Vtach 7 beat overnight, otherwise NSR. Per cards, noafib or need for AC. /patient concerned d/c off heparin and discussed will stop and monitor overnight. Repeat Venofer ordered and nephrology following. Moved bowels this morning and sample provided -- fecal occult NEGATIVE. Review of Systems Review of Systems: All systems reviewed & are unremarkable except as noted in HPI & below Physical Exam Physical Exam: General:WD/WN male sitting up in bed, at bedside, just completed HD, NAD HEENT: head atraumatic, normocephalic, pupils equal Resp: CTA, no w/c, on room air CV: RRR, +systolic murmur, no pitting edema/calf tenderness +AV fistula LEFT arm, +THRILL slight surrounding ecchymosis, no warmth/erythema, sensation intact GI: +BS, soft/NT : no nolasco MSK/Neuro: no focal deficit Psych: AOX3, pleasant and cooperative Results & Data Results & Data Vital Signs (Past 12 Hours) Vital Signs Temp Pulse Pulse Resp BP Pulse Ox Pulse Ox 11/07/22 07:28 36.9 C 78 20 115/66 94 11/07/22 03:27 36.6 C 76 22 118/68 96 11/06/22 22:02 82 11/06/22 23:11 36.7 C 88 23 129/72 96 11/06/22 20:46 92 O2 Del Method O2 Del Method 11/07/22 07:28 Room Air 11/07/22 03:27 Room Air 11/06/22 22:02 11/06/22 23:11 Room Air 11/06/22 20:46 Room Air Laboratory Results 11/07/22 11/07/22 11/07/22 Range/Units 07:11 06:43 06:43 WBC (4.8-10.8) K/ul RBC (4.70-6.10) M/uL Hgb (14.0-18.0) g/dl Hct (42.0-52.0) % MCV (80.0-100.0) fL MCH (25.0-34.0) pg MCHC (32.0-36.0) g/dL RDW Std Deviation (36.4-46.3) fL RDW Coeff of Krish (11.5-14.5) % Plt Count (130-400) K/uL MPV (9.4-12.4) fL Immature Gran % (Auto) % Neut % (Auto) % Lymph % (Auto) % Laurel % (Auto) % Eos % (Auto) % Baso % (Auto) % Neut # (Auto) (1.40-6.50) K/uL Lymph # (Auto) (1.2-3.4) K/uL Laurel # (Auto) (0.11-0.59) K/uL Eos # (Auto) (0-0.50) K/uL Baso # (Auto) (0-0.2) K/uL Immature Gran # (Auto) (0.01-0.20) K/uL Polychromasia APTT 66.0 H* (21.0-31.0) Seconds PTT Ratio 2.4 Sodium (136-145) mmol/L Potassium (3.5-5.1) mmol/L Chloride (98-107) mmol/L Carbon Dioxide (21-32) mmol/L Anion Gap (3-11) BUN (6-23) mg/dl Creatinine (0.6-1.4) mg/dl Est Cr Clr Drug Dosing ml/min Est GFR ( Amer) ml/min Est GFR (Non-Af Amer) ml/min BUN/Creatinine Ratio (10-20) Glucose (70-99(Fasting)) mg/dl POC Glucose 111 H (70-99) mg/dl Calcium (8.6-10.3) mg/dl Magnesium (1.7-2.4) mg/dl Total Bilirubin (0.2-1.0) mg/dl AST (13-39) U/L ALT (7-52) U/L Alkaline Phosphatase (34-104) U/L Lactate Dehydrogenase 136 (86-244) U/L Total Protein (6.0-8.3) gm/dl Albumin (3.4-5.0) gm/dl Globulin (2.5-4.0) gm/dl Albumin/Globulin Ratio (0.9-2) Stool Occult Bld Scrn (Negative) 11/07/22 11/07/22 11/06/22 Range/Units 06:43 06:43 19:50 WBC 4.92 (4.8-10.8) K/ul RBC 2.15 L (4.70-6.10) M/uL Hgb 7.5 L (14.0-18.0) g/dl Hct 21.3 L (42.0-52.0) % MCV 99.1 (80.0-100.0) fL MCH 34.9 H (25.0-34.0) pg MCHC 35.2 (32.0-36.0) g/dL RDW Std Deviation 52.6 H (36.4-46.3) fL RDW Coeff of Krish 14.7 H (11.5-14.5) % Plt Count 165 (130-400) K/uL MPV 10.1 (9.4-12.4) fL Immature Gran % (Auto) 0.6 % Neut % (Auto) 59.1 % Lymph % (Auto) 25.4 % Laurel % (Auto) 9.8 % Eos % (Auto) 4.3 % Baso % (Auto) 0.8 % Neut # (Auto) 2.91 (1.40-6.50) K/uL Lymph # (Auto) 1.25 (1.2-3.4) K/uL Laurel # (Auto) 0.48 (0.11-0.59) K/uL Eos # (Auto) 0.21 (0-0.50) K/uL Baso # (Auto) 0.04 (0-0.2) K/uL Immature Gran # (Auto) 0.03 (0.01-0.20) K/uL Polychromasia 1+ APTT (21.0-31.0) Seconds PTT Ratio Sodium 139 (136-145) mmol/L Potassium 4.0 (3.5-5.1) mmol/L Chloride 100 (98-107) mmol/L Carbon Dioxide 29 (21-32) mmol/L Anion Gap 10 (3-11) BUN 36 H (6-23) mg/dl Creatinine 7.01 H* D (0.6-1.4) mg/dl Est Cr Clr Drug Dosing 8.6 ml/min Est GFR ( Amer) 8.2 ml/min Est GFR (Non-Af Amer) 7.1 ml/min BUN/Creatinine Ratio 5.1 L (10-20) Glucose 103 H (70-99(Fasting)) mg/dl POC Glucose 147 H (70-99) mg/dl Calcium 9.0 (8.6-10.3) mg/dl Magnesium 2.0 (1.7-2.4) mg/dl Total Bilirubin 0.4 (0.2-1.0) mg/dl AST 13 (13-39) U/L ALT 8 (7-52) U/L Alkaline Phosphatase 47 (34-104) U/L Lactate Dehydrogenase (86-244) U/L Total Protein 5.6 L (6.0-8.3) gm/dl Albumin 3.8 (3.4-5.0) gm/dl Globulin 1.8 L (2.5-4.0) gm/dl Albumin/Globulin Ratio 2.1 H (0.9-2) Stool Occult Bld Scrn (Negative) 11/06/22 11/06/22 11/06/22 Range/Units 18:45 16:16 15:09 WBC (4.8-10.8) K/ul RBC (4.70-6.10) M/uL Hgb (14.0-18.0) g/dl Hct (42.0-52.0) % MCV (80.0-100.0) fL MCH (25.0-34.0) pg MCHC (32.0-36.0) g/dL RDW Std Deviation (36.4-46.3) fL RDW Coeff of Krish (11.5-14.5) % Plt Count (130-400) K/uL MPV (9.4-12.4) fL Immature Gran % (Auto) % Neut % (Auto) % Lymph % (Auto) % Laurel % (Auto) % Eos % (Auto) % Baso % (Auto) % Neut # (Auto) (1.40-6.50) K/uL Lymph # (Auto) (1.2-3.4) K/uL Laurel # (Auto) (0.11-0.59) K/uL Eos # (Auto) (0-0.50) K/uL Baso # (Auto) (0-0.2) K/uL Immature Gran # (Auto) (0.01-0.20) K/uL Polychromasia APTT 53.9 H* (21.0-31.0) Seconds PTT Ratio 2.0 Sodium (136-145) mmol/L Potassium (3.5-5.1) mmol/L Chloride (98-107) mmol/L Carbon Dioxide (21-32) mmol/L Anion Gap (3-11) BUN (6-23) mg/dl Creatinine (0.6-1.4) mg/dl Est Cr Clr Drug Dosing ml/min Est GFR ( Amer) ml/min Est GFR (Non-Af Amer) ml/min BUN/Creatinine Ratio (10-20) Glucose (70-99(Fasting)) mg/dl POC Glucose 159 H (70-99) mg/dl Calcium (8.6-10.3) mg/dl Magnesium (1.7-2.4) mg/dl Total Bilirubin (0.2-1.0) mg/dl AST (13-39) U/L ALT (7-52) U/L Alkaline Phosphatase (34-104) U/L Lactate Dehydrogenase (86-244) U/L Total Protein (6.0-8.3) gm/dl Albumin (3.4-5.0) gm/dl Globulin (2.5-4.0) gm/dl Albumin/Globulin Ratio (0.9-2) Stool Occult Bld Scrn Negative (Negative) PG Care Time/CCT Total # of Minutes Spent Total Time Spent with Patient: Total time spent is greater than 50% in coordination of care (as documented) at patient's floor/unit and/or counseling patient: Coding Level of Care Code 63887 SUB INP/OBS CARE 3/50MIN Diagnoses Chest pain R07.9 Anemia D64.9 HTN (hypertension) I10 Chronic kidney disease N18.9 Type 2 diabetes mellitus E11.9 Hyperlipidemia E78.5 Chronic kidney disease, stage V N18.5 ESRD needing dialysis N18.6; Z99.2
[2022-11-07 08:06] LABS: Partial Thromboplastin Ratio 2.4
--- NOTE | 2022-11-07 08:52 | Nephrology Progress Note ---
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 On IHD since 05/08 * HD TTS at [facility] (Dr. Marcus): 3hr 45min, F-160NR, 2K 2Ca, Na 140, HCO3 38, T 37, EDW 75kg, 16g needles * Currently undergoing transplant evaluation at [facility] * Will provide HD today according to outpatient orders. HD RN notified (2) PAF (paroxysmal atrial fibrillation): Plan: * Admitted w/ atrial fibrillation w/ RVR * Currently on heparin gtt * Telemetry this am shows NSR (3) Anemia: Plan: * Patient denies overt blood loss * AVF site without ecchymosis, hematoma * FOBT - negative x1 11/06/22 * Monitor for bleeding while on heparin gtt * B12 and folate are acceptable * Iron saturation is low normal. 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 Mccoy was evaluated in his hospital room this morning. He denied angina or dyspnea. Telemetry revealed NSR w/ one isolated 7 beat run of NSVT. Review of Systems Constitutional: no fever Eyes: no problem reported Ear, Nose, Mouth, Throat: no problem reported Respiratory: no cough and no dyspnea Cardiovascular: no chest pain Gastrointestinal: no abdominal pain, no nausea, no vomiting and no diarrhea/loose stools Genitourinary: no dysuria Physical Exam Constitutional: not in distress Eyes: PERRL, conjunctivae normal, anicteric sclerae ENMT: external ear and nose normal, oropharynx normal Neck: trachea midline, no thyromegaly Respiratory: normal respiratory effort, lungs clear to auscultation Cardiovascular: RRR, no murmur, no edema Extremities: + AV fistula (L BC AVF + bruit. No surrounding hematoma) Neurologic: awake; not confused Results & Data Vital Signs (Past 12 Hours) Vital Signs Temp Pulse Pulse Resp BP Pulse Ox O2 Del Method 11/07/22 07:28 36.9 C 78 20 115/66 94 Room Air 11/07/22 03:27 36.6 C 76 22 118/68 96 Room Air 11/06/22 22:02 82 11/06/22 23:11 36.7 C 88 23 129/72 96 Room Air Laboratory Results Laboratory Tests 11/07/22 11/07/22 06:43 06:43 WBC 4.92 Hgb 7.5 L Hct 21.3 L Plt Count 165 Sodium 139 Potassium 4.0 Chloride 100 Carbon Dioxide 29 BUN 36 H Creatinine 7.01 H* D Glucose 103 H Calcium 9.0 Magnesium 2.0 Total Bilirubin 0.4 AST 13 ALT 8 Alkaline Phosphatase 47 Albumin 3.8 PG Care Time/CCT Total # of Minutes Spent Total Time Spent with Patient: Total time spent is greater than 50% in coordination of care (as documented) at patient's floor/unit and/or counseling patient: Coding Level of Care Code 34911 SUB INP/OBS CARE 3/50MIN Diagnoses ESRD needing dialysis N18.6; Z99.2 PAF (paroxysmal atrial fibrillation) I48.0 Anemia D64.9 Amyloidosis E85.9 Amyloidosis type: unspecified amyloidosis (4) Amyloidosis Amyloidosis type: unspecified amyloidosis Qualified Code(s): E85.9 - Amyloidosis, unspecified
[2022-11-07] MEDS: SEVELAMER HCL 800 MG TABLET PO SCH ×3 (09:20→17:22)
--- NOTE | 2022-11-07 11:48 | Cardiology Progress Note ---
Date of Service November 07, 2022 Assessment & Plan (1) Chest pain: Plan: IMPRESSIONS: 1. 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 b. Echocardiogram 05/2022 with normal biventricular size normal biventricular size and function with normal strain imaging (LVEF 60%) with mild left ventricular hypertrophy, type 1 diastolic dysfunction and findings consistent with chronicity of his cardiac amyloid with low E prime velocities, a small pericardial effusion and increased echo density of his left ventricle. 2. Chronic diastolic dysfunction with elevated left atrial pressures. 3. History of moderate pulmonary hypertension. 4. Multiple myeloma, status post stem cell transplant, currently on chemotherapy. 5. End-stage renal disease, started on dialysis 05/17/2021. 6. Anemia of chronic disease. 7. Hyperlipidemia. 8. Diabetes mellitus type 2. 9. Chronic small pericardial effusion. 10. History of significant parenchymal lung disease with improvement suggesting resolving organizing pneumonia by CAT scan, November,. 11. Repeat echo this admission with preserved LVF, no wma, stable pericardial effusion Mr. Mccoy feels well today and appears stable. His story is suspicious for plaque rupture but his troponin is negligible and he is pain free today. Reassuringly, there were no WMA on his echo and his EF remains stable. He does not need further ACS/CAD workup at this time. His EKGs wer reviewed by myself and Dr. Flores and it appears that the afib was a mis-read by the EKG machine and is actually ST. Mr. Mccoy has a history of brief afib per his report during his bone marrow transplant however, I reviewed his tele strips and EKGs from that admission in 2019 and there is no documentation of afib that I can find. His heparin can be discontinued. No further anticoagulation is necessary. He did have a run of 7 beats of Vtach on the monitor last night. I will see if he can tolerate 12.5 mg daily of metoprolol succinate given his low-normal bp. We could consider decreasing the amlodipine and uptitrating the metoprolol if necessary. Cardiology will sign off at this time. He has a follow up scheduled for early November in the cardiology clinic. Admission and Anticipated Discharge Date Admission Date: November 05, 2022 Subjective Mr. Mccoy was getting dialysis when I saw him. His is bedside. He feels well. No chest pain since admission. He walked the halls last night and felt good doing so. He has been in SR on the monitor with PACs, PVCs, and a 7 beat run of Vtach. Review of Systems Review of Systems: All systems reviewed & are unremarkable except as noted in HPI & below Physical Exam Constitutional: WD/WN, vitals as above Respiratory: normal respiratory effort, lungs clear to auscultation Cardiovascular: RRR, no murmur, no edema Skin: no rashes, warm and dry Neurologic: moves all extremities and awake Psychiatric: A+Ox3, euthymic affect Results & Data Vital Signs (Past 12 Hours) Vital Signs Temp Pulse Pulse Pulse Resp BP BP 11/07/22 11:30 68 102/75 11/07/22 11:00 83 100/66 11/07/22 10:30 81 109/59 L 11/07/22 10:00 81 119/65 11/07/22 09:30 80 125/68 11/07/22 09:00 85 102/61 11/07/22 08:57 85 118/71 11/07/22 08:43 36.9 C 80 11/07/22 07:28 36.9 C 78 20 115/66 11/07/22 03:27 36.6 C 76 22 118/68 Pulse Ox O2 Del Method 11/07/22 11:30 11/07/22 11:00 11/07/22 10:30 11/07/22 10:00 11/07/22 09:30 11/07/22 09:00 11/07/22 08:57 11/07/22 08:43 11/07/22 07:28 94 Room Air 11/07/22 03:27 96 Room Air
[2022-11-07] MEDS: allopurinoL 100 MG TAB PO SCH (13:24)
[2022-11-07] MEDS: amLODIPine BESYLATE 5 MG TAB PO SCH (13:24)
[2022-11-07] MEDS: DOXYCYCLINE HYCLATE 100 MG CAP PO SCH ×2 (13:24→21:21)
[2022-11-07] MEDS: ACYCLOVIR 400 MG TAB PO SCH (13:25)
[2022-11-07] MEDS: FLUTICASONE FUROATE 100MCG 14 PUFFS/INHALER INH SCH (13:25)
[2022-11-07] MEDS: IRON SUCROSE 300 MG in SODIUM CHLORIDE 0.9% 250 ML IV SCH (13:42)
[2022-11-07] MEDS: traZODone HCL 100 MG TAB PO SCH (21:21)
[2022-11-07] MEDS: TAMSULOSIN HCL 0.4 MG CAP PO SCH (21:21)
[2022-11-08 07:18] LABS: Basophils # (auto) 0.04 K/uL (0-0.2); Basophils % (auto) 0.8 %; Eosinophils # (auto) 0.19 K/uL (0-0.50); Hematocrit (blood only) 21.9 % (42.0-52.0); Hemoglobin 7.5 g/dl (14.0-18.0); Immature Granulocytes # (auto) 0.03 K/uL (0.01-0.20); Immature Granulocytes % (auto) 0.6 %; Lymphocytes % (auto) 23.3 %; Mean Corpuscular Hemoglobin 34.2 pg (25.0-34.0); Mean Corpuscular Hgb Conc 34.2 g/dL (32.0-36.0); Monocytes # (auto) 0.52 K/uL (0.11-0.59); Neutrophils # (auto) 2.84 K/uL (1.40-6.50); Neutrophils % (auto) 60.3 %; Platelet Count 168 K/uL (130-400); RDW Coefficient of Variation 14.8 % (11.5-14.5); RDW Standard Deviation 53.7 fL (36.4-46.3); Red Blood Count 2.19 M/uL (4.70-6.10); White Blood Count 4.72 K/ul (4.8-10.8)
--- NOTE | 2022-11-08 07:38 | Hospitalist Progress Note ---
Date of Service November 08, 2022 Assessment & Plan (1) Chest pain: Plan: Chest pain,? NSTEMI Patient with chest pain, diaphoresis postdialysis with recurrent sensation SIGNIFICANT chest pain w/ radiation to arms, relieved w/ Nitro Discussed on admit w/ vascular given recent balloon angioplasty -- low suspicion for procedural thromboembolism and no further tx change at this time In ER received 1X nitro with complete resolution of symptoms. Subsequently became diaphoretic and ill-appearing, EKG showed diffuse ST depressions. Symptoms resolved with second nitro, patient had received full dose aspirin. Was placed on low-dose heparin drip Cardiology consulted -- no wma on echo at bedside, no cardiac cath recommended Continue heparin gtt Trop 20.8--> 25.9 --> 43--> 47.3 peaked, repeat 41.7, demand ischemic from elevated heart rate. ECHO w/ no new wma 11/07--> Remained CP free overnight on heparin. Per discussion w/ cards ok to discontinue. NO AFIB on monitor, sinus tachycardia noted. 7 beat run vtach overnight , they are adding low dose metoprolol 12.5mg daily ?esophageal spasm -- patient already on max dose amlodipine, ?hydralazine -- defer to cards if any recurrance of CP reported once DISCONTINUING HEPARIN GTT Nephrology consulted -- avoiding PRBC given working for transplant unless hgb <7 Given EPO/Venofer IV on 11/06 and continuing daily IV venofer while inpatient s/p HD for today Monitor for any recurrence of chest pain off heparin. If no issues, ok from cards for dc Anemia Chronic however does appear worsening over 1-2 years, no bleeding reported Hgb 7.5, avoiding transfusion given on list for transplant Venofer/EPO 11/06 as above and continuing Venofer IV daily while inpatient FECAL OCCULT NEGATIVE Discontinue heparin today as above, monitor for any recurrence of CP Non-anuric ESRD on dialysis 11/04/2022 fistulogram: Widely patent fistula, 2 areas of 90% stenosis at the shoulder level which were dilated. Proximal residual area was then subsequently dilated. Good results with no narrowing seen, adequate hemostasis, no complications at time of procedure. 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 Not an uric, but requires Friday dialysis Undergoing HD TTS at [place], undergoing transplant eval at [facility] s/p HD 11/06 Renal dose meds/avoid nephrotoxins when able Monitor BMP History of amyloid Continue doxycycline for anti-amyloid effects Patient reports he is doing very well post autologous transplant with no ongoing immunosuppressants/treatments required other than doxycycline History of DM 2 No longer on insulin, adequate treatment with dialysis Last A1c 6.2% Follow BSG, if greater than 180 may resume basal bolus weight-based BMP daily Hypertension Continue amlodipine 10mg daily Cards ordered metoprolol for AM as well, will need to monitor Atrial Fibrillation NOT felt to be afib, but rather sinus tachy per cards No anticoagulation Can d/c Heparin Did start low dose metoprolol for AM given vtach overnight TSH wnl DC heparin and monitor (2) Anemia: (3) HTN (hypertension): (4) Chronic kidney disease: (5) Type 2 diabetes mellitus: (6) Hyperlipidemia: (7) Chronic kidney disease, stage V: (8) ESRD needing dialysis: Plan continued inpatient stay monitoring for any chest pain OFF of heparin possible d/c tomorrow Admission and Anticipated Discharge Date Admission Date: November 05, 2022 Results & Data Results & Data Vital Signs (Past 12 Hours) Vital Signs Temp Pulse Pulse Resp BP Pulse Ox Pulse Ox 11/08/22 03:00 36.6 C 76 20 122/70 100 11/07/22 23:00 36.9 C 87 19 132/73 95 11/07/22 23:06 91 H 11/07/22 20:00 98 O2 Del Method O2 Del Method 11/08/22 03:00 Room Air 11/07/22 23:00 Room Air 11/07/22 23:06 11/07/22 20:00 Room Air PG Care Time/CCT Total # of Minutes Spent Total Time Spent with Patient: Total time spent is greater than 50% in coordination of care (as documented) at patient's floor/unit and/or counseling patient: Coding Diagnoses Chest pain R07.9 Anemia D64.9 HTN (hypertension) I10 Chronic kidney disease N18.9 Type 2 diabetes mellitus E11.9 Hyperlipidemia E78.5 Chronic kidney disease, stage V N18.5 ESRD needing dialysis N18.6; Z99.2
[2022-11-08 07:49] LABS: Ovalocytes 1+; Tear Drop Cells 1+
[2022-11-08 07:51] LABS: Partial Thromboplastin Ratio 1.1; Partial Thromboplastin Time 29.9 Seconds (21.0-31.0)
[2022-11-08 08:05] LABS: BUN Creatinine Ratio 4.9 (10-20); Calcium 9.2 mg/dl (8.6-10.3); Creatinine Clr Calc Pharmacy 12.2 ml/min; Est GFR (African American) 12.6 ml/min; Est GFR (Non-African American) 10.9 ml/min; Potassium 3.7 mmol/L (3.5-5.1)
--- NOTE | 2022-11-08 08:42 | Nephrology Progress Note ---
Date of Service November 08, 2022 Assessment & Plan (1) ESRD needing dialysis: Plan: * ESKD due to amyloidosis. On IHD since 05/08 * HD TTS at [facility] (Dr. Marcus): 3hr 45min, F-160NR, 2K 2Ca, Na 140, HCO3 38, T 37, EDW 75kg, 16g needles * Currently undergoing transplant evaluation at [facility] * If discharge is anticipated, please have patient resume outpatient HD at [facility] (I have notified the HD unit) (2) PAF (paroxysmal atrial fibrillation): Plan: * Medical course reviewed w/ Dr. Flores this am. No atrial fibrillation found during hospitalization. Admission ECG revealed sinus rhythm w/ frequent PAC's (3) Anemia: Plan: * Patient denies overt blood loss * AVF site without ecchymosis, hematoma * FOBT - negative x1 11/06/22 * Monitor for bleeding while on heparin gtt * B12 and folate are acceptable * Iron saturation is low normal. 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 Mccoy was evaluated in his hospital room this morning. He denied angina or palpitations. Mr. Mccoy was dialyzed yesterday for 1 L UF Review of Systems Constitutional: no fever Eyes: no problem reported Ear, Nose, Mouth, Throat: no problem reported Respiratory: no cough and no dyspnea Cardiovascular: no chest pain Gastrointestinal: no abdominal pain, no nausea, no vomiting and no diarrhea/loose stools Genitourinary: no dysuria Physical Exam Constitutional: not in distress Eyes: PERRL, conjunctivae normal, anicteric sclerae ENMT: external ear and nose normal, oropharynx normal Neck: trachea midline, no thyromegaly Respiratory: normal respiratory effort, lungs clear to auscultation Cardiovascular: RRR, no murmur, no edema Extremities: + AV fistula (L BC AVF + bruit. No surrounding hematoma) Neurologic: awake; not confused Results & Data Vital Signs (Past 12 Hours) Vital Signs Temp Pulse Pulse Resp BP Pulse Ox O2 Del Method 11/08/22 07:54 36.9 C 85 18 121/72 97 Room Air 11/08/22 03:00 36.6 C 76 20 122/70 100 Room Air 11/07/22 23:00 36.9 C 87 19 132/73 95 Room Air 11/07/22 23:06 91 H PG Care Time/CCT Total # of Minutes Spent Total Time Spent with Patient: Total time spent is greater than 50% in coordination of care (as documented) at patient's floor/unit and/or counseling patient: Coding Level of Care Code 97203 SUB INP/OBS CARE 3/50MIN Diagnoses ESRD needing dialysis N18.6; Z99.2 PAF (paroxysmal atrial fibrillation) I48.0 Anemia D64.9 Amyloidosis E85.9 Amyloidosis type: unspecified amyloidosis (4) Amyloidosis Amyloidosis type: unspecified amyloidosis Qualified Code(s): E85.9 - Amyloidosis, unspecified
[2022-11-08] MEDS ORDERED: METOPROLOL SUCC 25MG EXT REL TAB PO SCH (09:00)
[2022-11-08] MEDS: allopurinoL 100 MG TAB PO SCH (09:16)
[2022-11-08] MEDS: ACYCLOVIR 400 MG TAB PO SCH (09:16)
[2022-11-08] MEDS: SEVELAMER HCL 800 MG TABLET PO SCH ×2 (09:16→11:44)
[2022-11-08] MEDS: amLODIPine BESYLATE 5 MG TAB PO SCH (09:16)
[2022-11-08] MEDS: IRON SUCROSE 300 MG in SODIUM CHLORIDE 0.9% 250 ML IV SCH (09:17)
[2022-11-08] MEDS: FLUTICASONE FUROATE 100MCG 14 PUFFS/INHALER INH SCH ×2 (09:17→09:24)
[2022-11-08] MEDS: DOXYCYCLINE HYCLATE 100 MG CAP PO SCH (09:17)
--- NOTE | 2022-11-08 10:44 | Cardiology Progress Note ---
Date of Service November 08, 2022 Assessment & Plan Admission and Anticipated Discharge Date Admission Date: November 05, 2022 Subjective He feels well and denies any cardiac symptoms since the ER. He has been walking in the hallway without any chest tightness or chest pressure. His entire history including immediately after his PT a of his venous side of his fistula were reviewed in detail with both current and his . He denies any palpitations or fluttering or lightheadedness or dizziness. He has no lower extremity edema. He feels like he is back to himself at this point. Results & Data Vital Signs (Past 12 Hours) Vital Signs Temp Pulse Pulse Resp BP Pulse Ox O2 Del Method 11/08/22 07:54 36.9 C 85 18 121/72 97 Room Air 11/08/22 03:00 36.6 C 76 20 122/70 100 Room Air 11/07/22 23:00 36.9 C 87 19 132/73 95 Room Air 11/07/22 23:06 91 H He is awake alert and oriented x3. He denies any chest pain or chest pressure. He has been walking in the hallway and feels well. HEENT 2+ carotid upstrokes no evidence of carotid bruits Lungs: Clear to auscultation bilaterally no rales rhonchi or wheezing Heart: Regular rate and rhythm with a soft 2 out of 6 early peaking systolic ejection murmur at the upper right sternal border Abdomen: Soft nontender nondistended positive bowel sounds Extremities: No clubbing cyanosis or edema Psychiatric's affect appear appropriate (1) Chest pain: Plan: IMPRESSIONS: 1. 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 b. Echocardiogram 05/2022 with normal biventricular size normal biventricular size and function with normal strain imaging (LVEF 60%) with mild left ventricular hypertrophy, type 1 diastolic dysfunction and findings consistent with chronicity of his cardiac amyloid with low E prime velocities, a small pericardial effusion and increased echo density of his left ventricle. 2. Chronic diastolic dysfunction with elevated left atrial pressures. 3. History of moderate pulmonary hypertension. 4. Multiple myeloma, status post stem cell transplant, currently on chemotherapy. 5. End-stage renal disease, started on dialysis 05/17/2021. 6. Anemia of chronic disease. 7. Hyperlipidemia. 8. Diabetes mellitus type 2. 9. Chronic small pericardial effusion. 10. History of significant parenchymal lung disease with improvement suggesting resolving organizing pneumonia by CAT scan, November,. 11. Repeat echo this admission with preserved LVF, no wma, stable pericardial effusion The question is what caused this event. And to be honest I am not sure we will ever really know. It is on that always occur after angioplasty of the venous side of his fistula. In the past he has never had chest tightness or chest pressure. He notes the first set of symptoms were the evening after the BOW TACKER, And again on dialysis at the end (which has not reoccurred in the hospital), and then again in the emergency room. The EKGs have not been officially read. Personally reviewing he has sinus rhythm (sinus tachycardia) with PACs but there is no documentation of atrial fibrillation. In reviewing his telemetry monitoring he has had no atrial fibrillation either. This may be a combination of significant anemia and lack of oxygen carrying capacity with potential for coronary vasospasm or something related to the BOW TACKER even though it was on the venous side. His troponin which is a highly sensitive troponin is minimally elevated. At the time of his symptoms his echocardiogram was completely normal with normal wall motion. I think these findings are all reassuring that he does not have severe obstructive CAD. As I discussed with Solomon and his the challenges with a hemoglobin of 7-1/2 putting him through a cardiac catheterization is not something I would want to do. In addition if we fix something he would need aspirin and Plavix for a minimum of 6 months post stent. Thirdly, if we put him to recatheterization in all likelihood we would worsen his underlying renal function as he does make some urine at this point. From my standpoint he should be on aspirin, small dose of beta-debby as his blood pressure tolerates and statin therapy. He is scheduled to be seen in the office in 3 weeks time and should keep that appointment. If he would have another episode at that point I would recommend stress testing and long-term monitoring to rule out A-fib as a potential reason for his symptoms. At no point did he feel palpitations nor have we documented A-fib during this hospitalization. Was discussed with the patient, his , and the hospitalist team and nephrology.
[2022-11-08] MEDS ORDERED: ASPIRIN 81 MG ECTAB PO SCH (12:15)
--- NOTE | 2022-11-08 12:59 | Discharge Summary ---
Date of Service November 08, 2022 Admission HPI Per Admitting Provider Patient is a 72-year-old male with a past medical history of amyloidosis s/p autologous transplant, ESRD with malfunctioning fistula s/p angioplasty with Dr. Potter 11/04/22 subsequently working well, hypercalcemia, hyperphosphatemia, hypertension, type II DM diet controlled, and vitamin D deficiency with additional history of stem cell transplant Solomon is seen at the bedside REports has pain across his center chest and travelled into his left arm last night. Went away after he layed down and went to sleep Went to dialysis today, finished his session when he suddenly had a 'feeling that just didn't feel right' in his arms and pressure in his center chest. That seemed to gradually worsen and lasted 30-40 minutes. [place] better after getting nitro 2x while at dialysis and put on oxygen. ~40 minutes prior to admission eval he had another episode which improved with nitro. "Was not a great feeling, felt like I was going to " He notes he had a fistulagram yesterday, not sure if he could have had a clot which broke free during balloon angioplasty. He reports he felt well after the initial procedure. HIs fistula arm has been very bruised since having the procedure and seems to be worsening. hgb 8.1 preprocedure Was having SoB with exertion prior to the procedure Has dialysis [facility] History of Amyloidosis tx with stem cell transplant. 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 Was recovering when he got COVID. That was end of 2018. - Current takes no medications, transplant was successful. Takes doxycycline chronically for amyloid - still takes acyclovir prophylaxis for shingles suppression - does not take insulin. Was transiently on insulin but has not needed since. Medical History: Reviewed Medications: Reviewed Surgical History: Reviewed Family history: Reviewed Allergies: Reviewed Social History: Reviewed Code Status: Full code Admission Exam Per Admitting Provider General: A&Ox3. NAD. Cooperative. HEENT: Atraumatic, normocephalic. Vision and hearing intact Pulm: CTAB A&P. -wheezes, -rales, -rhonchi. Symmetrical chest rise. No increased work of breathing. No respiratory distress. Cardiac: RRR, systolic murmur present radial pulses intact and symmetrical. Abdominal: Nontender, nondistended, soft. BS present. Extremities: Left AV fistula in place, slight ecchymoses surrounding mid upper arm fistula without firm hematoma. No erythema/pain/warmth. Good thrill. Sensation of soft touch intact in hands bilaterally. Legs are with minimal ankle edema Principal Diagnosis Chest Pain, Anemia Discharge Exam General:WD/WN male sitting up in bed, at bedside, just completed HD, NAD HEENT: head atraumatic, normocephalic, pupils equal Resp: CTA, no w/c, on room air CV: RRR, +systolic murmur, no pitting edema/calf tenderness +AV fistula LEFT arm, +THRILL slight surrounding ecchymosis, no warmth/erythema, sensation intact GI: +BS, soft/NT : no nolasco MSK/Neuro: no focal deficit Psych: AOX3, pleasant and cooperative Discharge Data Allergies Allergy/AdvReac Type Severity Reaction Status Date / Time clindamycin Allergy Severe Rash Verified 11/05/22 16:53 Sulfa (Sulfonamide Allergy Intermediate diarrhea, Verified 11/05/22 16:53 Antibiotics) rash cefprozil [From Cefzil] AdvReac Intermediate Diarrhea Verified 11/05/22 16:53 Consultations 11/05/22 16:17 ED Decision to Admit Stat 11/05/22 20:46 Consult Nephrology Routine 11/06/22 09:00 Consult Cardiology Routine 11/06/22 12:29 Consult Cardiology Routine Ordered Studies Chest X-Ray 11/05/22 14:25 XR chest 1V portable HISTORY: 72 years-old Male Chest pain, nonspecific COMPARISON: Chest radiograph 6 06/09/2019 TECHNIQUE: AP view of the chest FINDINGS: Cardiomediastinal and hilar silhouettes are within normal limits. Mild right hemidiaphragmatic elevation again noted. No pneumothorax, pleural effusion, airspace consolidation or pulmonary edema. Bones appear grossly intact. Left shoulder rotator cuff calcific tendinosis. IMPRESSION: Cardiomegaly without acute process. ACT 112: Negative or not required by law. The above report was generated using voice recognition software. It may contain grammatical, syntax or spelling errors. Electronically signed by: Colton Witt M.D. 11/05/2022 3:11 PM ECHOCARDIOGRAM 11/05/22 Preserved LV systolic function without wall motion abnormality. Echo evidence of amyloidosis small pericardial effusion without echo evidence of tamponade evidence of moderate aortic stenosis significant mitral apparatus calcification with morderline mild MR moderate LAE, mild ANEESH Hospital Course (1) Chest pain: Chest pain,? NSTEMI Patient with chest pain, diaphoresis postdialysis with recurrent sensation SIGNIFICANT chest pain w/ radiation to arms, relieved w/ Nitro Discussed on admit w/ vascular given recent balloon angioplasty -- low suspicion for procedural thromboembolism and no further tx change at this time In ER received 1X nitro with complete resolution of symptoms. Subsequently became diaphoretic and ill-appearing, EKG showed diffuse ST depressions. Symptoms resolved with second nitro, patient had received full dose aspirin. Was placed on low-dose heparin drip Cardiology consulted -- no wma on echo at bedside, no cardiac cath recommended Heparin gtt initiated Trop 20.8 on admit, peaked at 47.3, trended down on repeat 41.7 without further reports of chest pain Discussed w/ Dr Flores, EKG read afib but really sinus tach. Did have 7 beat run vtach overnight 11/06-11/07, asympatomatic and metoprolol 12.5mg po daily initiated ?esophageal spasm, ?plaque rupture In either case, dc Heparin gtt, remained CP free. Discussed w/ Dr Flores and recs for ASA q2d on non-HD days, patient to resume crestor 5mg as prior taking. Patient ambulated in avila w/o symptoms, but discussed if any recurrence may need to consider cardiac cath (avoiding to worsening renal function as awaiting transplant, see below) and monitor to eval any underlying afib contributing to symptoms Ok for d/c from Nephro/cards perspective Anemia Chronic however does appear worsening over 1-2 years, no bleeding reported Fecal occult NEGATIVE Hgb stable in 7.5, no bleeding. Venofer IV while inpatient daily, dose EPO 11/06 Per nephro, can f/u w/ venofer w/ HD if needed Avoiding transfusion given on list for transplant LDH not elevated, low suspc for hemolysis Non-anuric ESRD on dialysis 11/04/2022 fistulogram: Widely patent fistula, 2 areas of 90% stenosis at the shoulder level which were dilated. Proximal residual area was then subsequently dilated. Good results with no narrowing seen, adequate hemostasis, no complications at time of procedure. 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 Not an uric, but requires Friday dialysis Undergoing HD TTS at [place], undergoing transplant eval at [facility] s/p HD 11/06 Renal dose meds/avoid nephrotoxins when able kidney function stable -- f/u venofer w/ HD w/ Dr Marcus recommended History of amyloid Continued doxycycline for anti-amyloid effects Patient reports he is doing very well post autologous transplant with no ongoing immunosuppressants/treatments required other than doxycycline History of DM 2 No longer on insulin, adequate treatment with dialysis Last A1c 6.2% Follow BSG, if greater than 180 may resume basal bolus weight-based BSGs stable Hypertension Continue amlodipine 10mg daily Cards ordered metoprolol 12.5mg daily and continued this at d/c, BP 120/69 and got dose this morning Atrial Fibrillation hx of pafib at time of treatment for bx, nothing further Per Dr Flores, NOT felt to be afib, but rather sinus tachy Metoprolol as above Heparin dc TSH wnl ASA 81mg daily F/u Dr Flores -- may need event monitor if any issues in future as above, denied any sx palpitations (2) Anemia: (3) HTN (hypertension): (4) Chronic kidney disease: (5) Type 2 diabetes mellitus: (6) Hyperlipidemia: resuming crestor 5mg daily at dc -- previously on and has rx at home (7) Chronic kidney disease, stage V: (8) ESRD needing dialysis: Total Time Total Time Spent Total Time Spent (In Minutes): 70 Discharge Plan Discharge Items Patient Disposition: Home - Self-Care Reason For Visit: CHEST PAIN Discharge Diagnosis: You have been hospitalized for an acute medical problem. During your stay at [facility], we have made an effort to correct the problem that brought you to the hospital while keeping you as comfortable as possible. Medications were used to bring your condition under control and your discharge instructions will include directions for any medications you should take after leaving the hospital. Please make sure you see your Primary Care Provider as part of your follow up plan. Activity: Resume your previous activity Non-emergency contact: Primary Care Provider, Supervisor [employer] Call non-emergency contact if: you have any medication questions, your symptoms worsen, your pain is concerning for you and you have a fever Follow-up/Referrals: Susan Marcus MD [Physician] - 03/27/23 11:20 am Maged Murphy MD [Physician] - 11/13/22 10:25 am Jonnathan Flores DO [Physician] - (You have an appointment with Dr. Flores in November) Diet: Dialysis Renal and Heart Healthy Addtl Attending Provider Instructions: You have been hospitalized for concerns of chest pain. Troponin levels were obtained and peaked, and could be due to elevated heart rate. You had ultrasound of the heart which did not show any significant wall motion abnormalities which would suggest an [place]. You had been evaluated by cardiology who felt could have had plaque rupture given history but again troponin felt negligible and you remained pain free. We stopped heparin and you remained chest pain free. Cardiology started low dose metoprolol 12.5mg by mouth daily to help with heart rates and you should continue your amlodipine 10mg for possible esophageal spasms given improvement in symptoms with nitro. You will have follow up early November with Dr Flores. He recommends you be be on a baby aspirin daily (every other day) -- do not take on dialysis days per Dr Flores. You should also resume your crestor 5mg daily for prevention. Dr Parr was also consulted and you were provided IV iron while inpatient x 3 doses and we were avoiding giving blood to prevent issues with transplant in follow up and can get further iron transfusions with dialysis in follow up. Your stool was checked for blood and this was NEGATIVE, which is reassuring for no active bleeding, however may be from your kidney disease itself. Please follow up with Nephrology as well as Dr Flores in follow up. Follow up with PCP in 7-10 days from discharge. Please return to the ER with any worsening/recurrence of chest pain, shortness of breath, or for any other symptoms concerning for you. As discussed, if symptoms happen again, Dr Flores will recommend a cardiac catheterization/possible monitoring for any underlying afib but he did not feel currently you did in fact have any afib on admission per his read. It has been a pleasure being a part of the medical team providing for you while you have been in the hospital. Take care! Pending Studies at Discharge: No Stand-Alone Forms: My Crunched, Smoking Cessation Medications and DC Order Prescriptions: New aspirin 81 mg Tablet,Delayed Release (Dr/Ec) 81 mg PO QAM Qty: 0 0RF metoprolol succinate 25 mg Tablet Extended Release 24 Hr 12.5 mg PO QAM Qty: 30 0RF rosuvastatin [Crestor] 5 mg tablet 5 mg PO DAILY Qty: 30 0RF Continued sevelamer carbonate 800 mg tablet 800 mg PO TID Qty: 270 3RF doxycycline monohydrate 100 mg capsule 100 mg PO BID montelukast [Singulair] 10 mg tablet 10 mg PO DAILY tamsulosin 0.4 mg Capsule 0.4 mg PO QPM amlodipine 10 mg tablet 10 mg PO DAILY cyanocobalamin (vitamin B-12) 1,000 mcg/mL Solution 1,000 mcg IM MONTHLY fluticasone propionate [Flovent HFA] 110 mcg/actuation HFA aerosol inhaler 1 puff INHALATION QAM trazodone 50 mg tablet 100 mg PO HS furosemide 20 mg tablet 20 mg PO DAILY PRN (Reason: Fluid Retention) allopurinol 100 mg tablet 100 mg PO DAILY insulin aspart U-100 [Novolog FlexPen U-100 Insulin] 100 unit/mL (3 mL) insulin pen 0 unit SUBCUT UD Rx Instructions: per sliding scale acyclovir 400 mg Tablet 400 mg PO DAILY Discharge Orders: Discharge Order (Routine); Ordered 11/08/22 Ordered By: Gema Wilder Admission Data Admit Date/Time: 11/05/22 17:33 Attending Provider: Pineda Mcdowell Admit Provider: Vj eLes Primary Care Provider: Rudy Royal Other Providers: Vj Lees ; Juan Antonio Parr ; Mikhail Robledo ; Jonnathan Flores Other Interventions: Discharge Summary Assessment (RN) Last Done: 11/08/22 12:47 Supervising Physician Co-Signing Physician Notes The patient was seen by me. The chart was reviewed. Case discussed with DIVINE Pardo. Agree with assessment and plan Coding Level of Care Code 59733 INP/OBS DISCH >30 MIN Diagnoses Chest pain R07.9 Anemia D64.9 HTN (hypertension) I10 Chronic kidney disease N18.9 Type 2 diabetes mellitus E11.9 Hyperlipidemia E78.5 Chronic kidney disease, stage V N18.5 ESRD needing dialysis N18.6; Z99.2
--- NOTE | 2022-11-08 20:27 | Electrocardiogram Report ---
Test Reason : Blood Pressure : / mmHG Vent. Rate : 128 BPM Atrial Rate : 128 BPM P-R Int : 208 ms QRS Dur : 086 ms QT Int : 328 ms P-R-T Axes : 000 223 063 degrees QTc Int : 478 ms Poor data quality, interpretation may be adversely affected Suspect arm lead reversal, interpretation assumes no reversal Sinus tachycardia Low voltage QRS ST segement changes suggesting is chemia Abnormal ECG When compared with ECG of 05-NOV-2022 13:57, (unconfirmed) Premature atrial complexes are no longer Present Confirmed by Tre Flowers ([id number]) on 11/08/2022 8:27:21 PM Referred By: REFERRED SELF Confirmed By:Jose Flowers
--- NOTE | 2022-11-08 20:28 | Electrocardiogram Report ---
Test Reason : Blood Pressure : / mmHG Vent. Rate : 112 BPM Atrial Rate : 111 BPM P-R Int : 000 ms QRS Dur : 088 ms QT Int : 418 ms P-R-T Axes : 000 -39 060 degrees QTc Int : 570 ms Poor data quality, interpretation may be adversely affected Atrial fibrillation with rapid ventricular response Left axis deviation Low voltage QRS ST segement changes consistent with ischemia Abnormal ECG When compared with ECG of 05-NOV-2022 15:41, (unconfirmed) Atrial fibrillation has replaced Sinus rhythm Questionable change in initial forces of Lateral leads T wave inversion no longer evident in Lateral leads Confirmed by Tre Flowers ([id number]) on 11/08/2022 8:27:55 PM Referred By: REFERRED SELF Confirmed By:Jose Flowers
--- NOTE | 2022-11-10 10:57 | Coding Query ---
CODING QUERY To promote full compliance with coding requirements relating to patient care, provider participation is requested in all cases of optical brightener maker helper uncertainty. Please assist us with the question(s) below: Coding Question(s): Pt admitted post dialysis with chest pain. MO was ruled out . Please document, if known or suspected, the etiology of the chest pain. Thanks for your help. Nam Navarro [facility] Physician's Response(s): Noncardiac chest pain of undetermined etiology Principal Diagnosis: "that condition established after study, to be chiefly responsible for occasioning the admission of the patient to the hospital for care." Co-Existing Principal Diagnosis: "when two or more diagnoses equally meet the criteria for principal diagnosis as determined by the circumstances of admission, diagnostic work up, and/or therapy provided, and the Alphabetic Index, Tabular List, or another coding guideline does not provide sequencing direction, any one of the diagnoses may be sequenced first." "When the physician has documented what appears to be a current diagnosis in the body of the record, but has not included the diagnosis in the final diagnostic statement, the physician should be asked whether the diagnosis should be added." (Source Coding Clinic 2 QTR90. p3-4) RAMA
--- NOTE | 2022-11-13 09:29 | Cardiology Progress Note ---
Date of Service November 13, 2022 Assessment & Plan Admission and Anticipated Discharge Date Admission Date: November 05, 2022 Subjective Doing well today. He denies any chest pain or chest pressure. He tolerated dialysis yesterday without any issues. Denies any shortness of breath PND orthopnea. He has palpitations or fluttering. There is no evidence of atrial fibrillation on his monitor Either during this hospitalization or the previous hospitalization. His is at the bedside during our visit today. Results & Data Vital Signs (Past 12 Hours) HEENT 2+ carotid upstrokes no evidence of carotid bruits Lungs: Clear to auscultation bilaterally no rales rhonchi or wheezing Heart: Regular rate and rhythm with a soft 2 out of 6 early peaking systolic ejection murmur at the upper right sternal border Abdomen: Soft nontender nondistended positive bowel sounds Extremities: No clubbing cyanosis or edema Psychiatric's affect appear appropriate (1) Chest pain: With a normal myocardial perfusion study without evidence of ischemia nor scar and normal LV function (November 12, 2022) Plan: IMPRESSIONS: 1. 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 b. Echocardiogram 05/2022 with normal biventricular size normal biventricular size and function with normal strain imaging (LVEF 60%) with mild left ventricular hypertrophy, type 1 diastolic dysfunction and findings consistent with chronicity of his cardiac amyloid with low E prime velocities, a small per icardial effusion and increased echo density of his left ventricle. 2. Chronic diastolic dysfunction with elevated left atrial pressures. 3. History of moderate pulmonary hypertension. 4. Multiple myeloma, status post stem cell transplant, currently on chemotherapy. 5. End-stage renal disease, started on dialysis 05/17/2021. 6. Anemia of chronic disease. 7. Hyperlipidemia. 8. Diabetes mellitus type 2. 9. Chronic small pericardial effusion. 10. History of significant parenchymal lung disease with improvement suggesting resolving organizing pneumonia by CAT scan, November,. 11. Repeat echo this admission with preserved LVF, no wma, stable pericardial effusion As was discussed with the patient and the primary service I believe that he is having steal phenomenon when he is on dialysis. Likely this is a combination of anemia and further dilution of his hemoglobin when they are pulling blood from the arterial side and pushing saline on the venous side. Additionally there are reports of patient's having an adenosine response which in turn further vasodilates both the arterial and venous side leading to worsening hypoperfusion. This combination of hypoperfusion and worsening anemia then leads to ischemic like cardiac symptoms. This is my best guess given his normal stress test. We did discuss sensitivity and specificity of stress testing at 85% and the fact that the test looks for blockages greater than 50%. Additionally they may be pulling too much on the arterial side and now that the venous side is dilated somehow this is contributing to worsening symptoms. He never had symptoms prior to his most recent angioplasty on the venous side of his fistula. I discussed with him that I am not a dialysis expert and leave that up to the nephrology service. The patient and his feel, given the fact he is making a significant mount of urine, that they are taking too much volume off on dialysis. I also discussed with him that he would be a good candidate for home hemodialysis where the flows are much less, the quality of life is better and infection rates are lower. As noted last week there is been no documentation of atrial fibrillation at any point throughout his last 2 admissions. He is receiving appropriate support for his low hemoglobin. He is trying to avoid a transfusion given his ultimate want for a transplant and the risk of antibodies forming after transfusion. If His hemoglobin continues to trend down he may not have an option and I discussed this with them.
== END 2022-11-08 13:28 | disposition home or self-care (01) | DRG 252 ==
LOC: ED 13:51 → 2S 17:33 → SUATTDRO 17:33 → 2S 20:24

== ENCOUNTER 2022-11-09 11:32 | Inpatient (IN) ==
[2022-11-09 12:08] LABS: Basophils # (auto) 0.05 K/uL (0-0.2); Basophils % (auto) 0.9 %; Eosinophils % (auto) 3.6 %; Hematocrit (blood only) 23.4 % (42.0-52.0); Hemoglobin 8.4 g/dl (14.0-18.0); Immature Granulocytes # (auto) 0.04 K/uL (0.01-0.20); Immature Granulocytes % (auto) 0.7 %; Lymphocytes % (auto) 30.2 %; Mean Corpuscular Hemoglobin 34.9 pg (25.0-34.0); Mean Corpuscular Hgb Conc 35.9 g/dL (32.0-36.0); Mean Corpuscular Volume 97.1 fL (80.0-100.0); Monocytes % (auto) 8.9 %; Neutrophils # (auto) 3.13 K/uL (1.40-6.50); Neutrophils % (auto) 55.7 %; Platelet Count 192 K/uL (130-400); RDW Coefficient of Variation 14.9 % (11.5-14.5); RDW Standard Deviation 51.8 fL (36.4-46.3); Red Blood Count 2.41 M/uL (4.70-6.10); White Blood Count 5.62 K/ul (4.8-10.8)
[2022-11-09 12:26] LABS: Anion Gap 17 (3-11); BUN Creatinine Ratio 4.5 (10-20); Blood Urea Nitrogen 20 mg/dl (6-23); Calcium 9.3 mg/dl (8.6-10.3); Carbon Dioxide 25 mmol/L (21-32); Chloride 100 mmol/L (98-107); Est GFR (African American) 14.3 ml/min; Est GFR (Non-African American) 12.3 ml/min; Glucose 160 mg/dl (70-99(Fasting)); Potassium 3.3 mmol/L (3.5-5.1); Sodium 142 mmol/L (136-145)
[2022-11-09 12:29] LABS: Troponin I High Sensitivity 19.3 pg/ml (0-20)
[2022-11-09 12:34] LABS: Prothrombin Time 10.6 Seconds (9.0-12.0)
[2022-11-09 12:41] LABS: Alanine Aminotransferase 10 U/L (7-52); Albumin Level 4.3 gm/dl (3.4-5.0); Alkaline Phosphatase 61 U/L (34-104); Aspartate Aminotransferase 15 U/L (13-39); Bilirubin,Total 0.6 mg/dl (0.2-1.0); Globulin 2.1 gm/dl (2.5-4.0); Lipase 40 U/L (11-82); Magnesium 1.8 mg/dl (1.7-2.4); Phosphorus 1.4 mg/dl (2.5-4.9); Total Protein 6.4 gm/dl (6.0-8.3)
--- NOTE | 2022-11-09 12:54 | XRay Report ---
SINGLE VIEW CHEST CLINICAL HISTORY: Atypical chest pain. FINDINGS: An AP, portable, upright chest radiograph is compared to study dated 11/05/2022 and correlat ed with chest CT dated 04/26/2020. The heart is enlarged. The pulmonary vasculature is noncongested. Th ere is mild elevation of the right hemidiaphragm and bibasilar scarring/atelectasis. No airspace cons olidation or large pleural effusion is identified. No pneumothorax is seen. The skeletal structures a re osteopenic. The bony thorax is grossly intact. IMPRESSION: Cardiomegaly with no acute cardiopulmonary abnormality. ACT 112: Negative or not required by law. Electronically signed by: Anuj Douglas M.D. 11/09/2022 12:53 PM
--- NOTE | 2022-11-09 14:01 | Nephrology Consultation ---
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 dialysis has been uneventful until recently. 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 Recently had fistulogram with dilatation of AV fistula stenosis and since then had several episodes of chest pain while on dialysis. currently he is undergoing transplant evaluation at [facility]. It is unclear whether these episodes of chest pain at all related to fistula intervention. AV fistula has been functioning well since the intervention. blood pressure has been well controlled during both episode without any hypotensive episode however he was noted to have tachycardia with heart rate 120 is to 140s during the chest pain episode today. In ER, during exam his heart rate was well controlled without any arrhythmia noted on exam. However, with his ESRD status and with history of cardiac amyloidosis, he does have risk for coronary artery disease. -- appreciate cardiology input regarding further management and intervention for repeated episodes of chest pain. if cardiac catheterization is indicated, we can plan on doing dialysis immediately after cardiac catheterization. -- electrolyte and volume status acceptable, will request our dialysis nurse to remove dialysis needle from the fistula, tentatively plan for dialysis next Friday. -- left arm nephrology precaution, dose medications for EGFR less than 10 -- will check iron study with next lab, give Epogen with next dialysis treatment Will follow. Thank you for allowing me to participate in your patient's care. It was a pleasure to see Solomon. History of Present Illness Reason for Consultation: ESRD on HD, admitted with CP History of Present Illness Mr. Mccoy is a 72 year old male with past medical history significant for end-stage renal disease secondary to amyloidosis, on hemodialysis, brought to ER by EMS from dialysis unit where he started having chest pain during dialysis. Nephrology consult was requested to manage dialysis while inpatient. EMR records are reviewed in detail patient's visit. His Loren was at bedside during visit. Solomon was recently admitted to the hospital on 11/05/2022 and was discharged home yesterday. He had a fistulogram on 11/04/2022 for malfunctioning AV fistula. Fistulogram showed a widely patent fistula up through the upper arm But there was 2 areas of significant > 90% stenosis at shoulder level requiring balloon dilatation x twice with good result showing no residual narrowing after 2nd dilatation. He tolerated the procedure well. However, on 11/05/22 he developed chest pain discomfort almost 2 hours into his dialysis treatment and brought to the hospital for further evaluation. troponin was mildly elevated. Initial EKG showed sinus tachycardia however 30 kg during that hospitalization showed AFib with RVR then again converted to sinus rhythm eventually. He did have prior history of paroxysmal AFib before. During hospitalization while he was getting dialysis, did not have any further episode of chest pain. 2D echo showed EF 60-65% with moderate concentric LVH and echogenic speckles consistent with his diagnosis of cardiac amyloidosis lordosis. There was no significant wall motion abnormality. Evaluated by Cardiology at that time and cardiac catheterization was not considered because of anemia and low likelihood of coronary ischemia. Since discharge yesterday he was otherwise feeling well. This morning he went for regular dialysis treatment and again 1-1/2 hour into treatment he started having chest pain. Sub lingual nitroglycerin was given without any improvement in chest pain and EMS was called and he was brought to ER. Blood pressure was normal during dialysis without any hypotensive episode. But at some point his heart rate increased to 120 is to 140s at the dialysis unit. Has end-stage renal disease secondary to amyloidosis, Has been on hemodialysis via left arm AV fistula since April 2021. he also has cardiac amyloidosis. .He underwent autologous stem cell transplantation 04/05 and has been in remission. has history of chronic anemia associated with end-stage renal disease as well as paraproteinemia, recently hemoglobin has been staying low. No history of acute bleeding. Has been getting Mircera at the dialysis unit. Generally he feels poorly if hemoglobin less than 10. Overall he was feeling better when he was visited in ER, chest pain resolved, denied any shortness of breath. He continues to void several times a day. Allergies Allergy/AdvReac Type Severity Reaction Status Date / Time clindamycin Allergy Severe Rash Verified 11/05/22 16:53 Sulfa (Sulfonamide Allergy Intermediate diarrhea, Verified 11/05/22 16:53 Antibiotics) rash cefprozil [From Cefzil] AdvReac Intermediate Diarrhea Verified 11/05/22 16:53 Home Medications Medication Instructions Recorded Confirmed Type tamsulosin 0.4 mg capsule 0.4 mg PO QPM 12/17/18 11/05/22 History doxycycline monohydrate 100 mg 100 mg PO BID 05/10/19 11/05/22 History capsule montelukast 10 mg tablet 10 mg PO DAILY 05/15/20 11/05/22 History (Singulair) amlodipine 10 mg tablet 10 mg PO DAILY 12/29/20 11/05/22 History cyanocobalamin (vitamin B-12) 1,000 mcg IM MONTHLY 12/29/20 11/05/22 History 1,000 mcg/mL injection solution fluticasone propionate 110 1 puff inhalation QAM 12/29/20 11/05/22 History mcg/actuation HFA aerosol inhaler (Flovent HFA) allopurinol 100 mg tablet 100 mg PO DAILY 01/13/21 11/05/22 History furosemide 20 mg tablet 20 mg PO DAILY PRN Fluid Retention 01/13/21 11/05/22 History insulin aspart U-100 100 unit/mL 0 unit subcut UD 01/13/21 11/05/22 History (3 mL) subcutaneous pen (Novolog FlexPen U-100 Insulin aspart) trazodone 50 mg tablet 100 mg PO HS 01/13/21 11/05/22 History sevelamer carbonate 800 mg tablet 800 mg PO TID #270 tabs 10/11/22 11/05/22 Rx acyclovir 400 mg tablet 400 mg PO DAILY 11/04/22 11/05/22 History aspirin 81 mg tablet,delayed 81 mg PO QAM #0 tabs 11/08/22 Rx release metoprolol succinate 25 mg 12.5 mg PO QAM #30 tabs 11/08/22 Rx tablet,extended release 24 hr rosuvastatin 5 mg tablet (Crestor) 5 mg PO DAILY #30 tabs 11/08/22 Rx Patient History Medical History Amyloidosis ON CHEMO CYBORD- EVERY FRIDAY IV INFUSION INCLUDING DEXAMETHASONE (40MG DURING INFUSION PER HEME/ONC)- AMYLOIDOSIS DX 2/2 WORKUP FOR CKD Anemia CHRONIC; BASELINE HGB 9-10 RANGE PER CHART REVIEW Anemia in chronic kidney disease (CKD) ESRD (end stage renal disease) NO DIALYSIS INDICATION AT THIS TIME; AVF PLACEMENT IN CASE DIALYSIS NEEDED IN FUTURE ESRD needing dialysis Herpes zoster Hypercalcemia Hyperphosphatemia Hypertension Metabolic acidosis Myofascial pain Osteoarthritis Pneumonia 11/2018- SYMPTOMS RESOLVED S/P ABX Pulmonary hypertension MILD (RSVP 44MMHG) Secondary hyperparathyroidism of renal origin Type 2 diabetes mellitus DIET CONTROLLED Vitamin D deficiency Surgical History H/O stem cell transplant History of back surgery Total knee replacement status RIGHT/LEFT Family History Father Family history of diabetes mellitus Social History Smoking Status: Never smoker Second Hand Exposure: No; Hx Alcohol Use: No Hx Substance Use: No Preferred Language: Bangladeshi Communication Ability: Effective 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 Physical Exam Constitutional: WD/WN, vitals as above no acute distress Eyes: + anicteric sclerae Neck: normal visual inspection Respiratory: no respiratory distress Auscultation: lungs clear to auscultation bilaterally Cardiovascular: Rate/Rhythm: regular rate and regular rhythm Heart Sounds: normal S1 and normal S2 Extremities: no edema Skin: no rashes Neurologic: no focal motor deficits Psychiatric: Orientation: alert and oriented x 3 Results & Data Vital Signs (Past 12 Hours) Vital Signs Temp Pulse Pulse Resp BP BP Pulse Ox 11/09/22 11:50 101 H 11 L 11/09/22 11:47 109 H 29 H 100 11/09/22 11:48 106 H 11/09/22 11:47 108 H 100 11/09/22 11:37 105 H 20 103/65 100 11/09/22 11:37 36.8 C 113 H 20 103/65 O2 Del Method 11/09/22 11:50 11/09/22 11:47 11/09/22 11:48 11/09/22 11:47 Room Air 11/09/22 11:37 Room Air 11/09/22 11:37 PG Care Time/CCT Total # of Minutes Spent Total Time Spent with Patient: Total time spent is greater than 50% in coordination of care (as documented) at patient's floor/unit and/or counseling patient: Coding Level of Care Code 67143 IN/OBS CONSULT LVL 5,80M Diagnoses End stage renal disease N18.6 Chest pain R07.9 HTN (hypertension) I10 Anemia D64.9
--- NOTE | 2022-11-09 14:25 | Emergency Department Note ---
Impression & Plan Atypical chest pain, ESRD on hemodialysis, SARS-CoV-2 positive, Left arm pain, Pericardial effusion ED Provider Note NAME: PAUL LOOMIS AGE: 72 SEX: M ARRIVES VIA: Ambulance INFORMANT: Patient ED PROVIDER(S): Ezra Ball MD CHIEF COMPLAINT: Chest pain, referred. PLAN: Disposition: Admit MEDICAL DECISION MAKING: The patient is a pleasant 77-year-old gentleman with a past medical history of end-stage renal disease with oligourea, paroxysmal atrial fibrillation, hypertension, hyperlipidemia, who presents to the emergency department via EMS from his hemodialysis center where he suddenly developed left shoulder/arm pain and chest pain when he was midway through dialysis. The patient had similar episode last Friday where he was admitted to this facility and had unremarkable echo and minimally elevated high-sensitivity troponin above normal limit. The patient symptoms occur in the setting of recently having angioplasty/dilation of malfunctioning left arm AV fistula which had some stenosis. The patient and family expressed concern that the symptoms patient is having may be related to this. However his fistula has been functioning since the procedure and he does admit that he had full dialysis when he was in the hospital and did not have rec urrence of pain. The patient was sent via EMS from his dialysis center with access to his AV fistula still in place. The patient was treated with 2 doses of nitroglycerin and aspirin prior to arrival by EMS. The patient reports his symptoms resolved but not necessarily after the nitro and aspirin. Initial EKG in the emergency department nondiagnostic due to significant artifact. Repeat EKG without artifact demonstrates sinus rhythm without overt ST elevation or depression, QTc 516, QRS 96. Chest x-ray negative for acute abnormality. WBC and platelets within normal limits. H/H 8.4/23.4 improved from and similar to prior range values in the setting of end-stage renal disease. Creatinine 4 consistently patient's end-stage renal disease. Potassium 3.3 and phosphorus 1.4 and electrolytes otherwise unremarkable. LFTs are unremarkable. High- sensitivity troponin 19.3, within normal limits. Lipase is not elevated. COVID-19 RNA, MEME test was positive today, which likely indicates a new infection given his prior test for his recent admission was negative. CT of the chest without contrast was performed and demonstrates cardiomegaly with small to moderate size pericardial effusion the correlates to his recent echo. There is no effusion or airspace consolidation. Incidental note is made of subcentimeter pulmonary nodules throughout both lungs however, the patient's report they are aware of these and slight having CT imaging at [facility] where they have followed with pulmonology and their understanding is that they may reflect stable calcifications after his prior COVID-19 infection. I did review the patient's presentation with vascular surgery, Dr. Potter. Given his fistula is functioning normally no indication for imaging of this at this time. Patient denied recurrence of pain while in the emergency department. However given his risk factors reasonable to proceed with referral for admission for further evaluation and management. Case was discussed with Dr. Avelar, [facility] hospitalist, who will evaluate the patient for admission. Triage Nursing notes reviewed and agree them. Prior/outside medical records reviewed Vital Signs: reviewed Differential diagnosis: Cardiac ischemia, aortic dissection, pulmonary embolism, pneumothorax, pneumonia, pericarditis, myocarditis, esophageal rupture, GERD, cholecystitis, pancreatitis, musculoskeletal, as well as other pathologies. ER treatment provided: See below. Diagnostics interpreted by me: ECG: Sinus rhythm, 100 bpm, no ectopy, no overt ST elevation or depression, QTc 516, QRS 96. Cardiac Monitoring: An order for continuous cardiac monitoring was placed and demonstrated Laboratory studies: See below Imaging studies: See below Consultation(s): Vascular Surgery, Dr. Potter. [facility] hospitalist, Dr. Avelar HPI: The patient is a pleasant 77-year-old gentleman with a past medical history of end-stage renal disease with oligourea, paroxysmal atrial fibrillation, hypertension, hyperlipidemia, who presents to the emergency department via EMS from his hemodialysis center where he suddenly developed left shoulder/arm pain and chest pain when he was midway through dialysis. The patient had similar episode last Friday where he was admitted to this facility and had unremarkable echo and minimally elevated high-sensitivity troponin above normal limit. The patient symptoms occur in the setting of recently having angioplasty/dilation of malfunctioning left arm AV fistula which had some stenosis. The patient and family expressed concern that the symptoms patient is having may be related to this. However his fistula has been functioning since the procedure and he does admit that he had full dialysis when he was in the hospital and did not have recurrence of pain. The patient was sent via EMS from his dialysis center with access to his AV fistula still in place. The patient was treated with 2 doses of nitroglycerin and aspirin prior to arrival by EMS. The patient reports his symptoms resolved but not necessarily after the nitro and aspirin. ROS: See above HPI for pertinent positives & negatives. A total of 10 systems reviewed and were otherwise negative. VITALS:See Below PHYSICAL EXAMINATION: GENERAL: Awake, alert, well-appearing, in no distress HENT: Normocephalic, atraumatic. Oropharynx unremarkable. EYES: Normal conjunctiva. Sclera non-icteric. NECK: Supple. No nuchal rigidity. FROM. No JVD. RESPIRATORY: Clear to auscultation. CARDIAC: Regular rate, normal rhythm. Extremities warm and well perfused. Pulses equal. Left brachial AV fistula with palpable thrill. ABDOMEN: Soft, non-distended. No tenderness to palpation. No rebound or guarding. No masses. RECTAL: Deferred. MUSCULOSKELETAL: Chest examination reveals no tenderness. The back is symmetrical on inspection without obvious abnormality. There is no CVA tenderness to palpation. No joint edema. LOWER EXTREMITIES: Calves are equal size bilaterally and non-tender. No edema. No discoloration. NEURO: Normal sensorium. No sensory or motor deficits noted. SKIN: No rash or jaundice noted. 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 IV INFUSION INCLUDING DEXAMETHASONE (40MG DURING INFUSION PER HEME/ONC)- AMYLOIDOSIS DX 2/2 WORKUP FOR CKD Anemia CHRONIC; BASELINE HGB 9-10 RANGE PER CHART REVIEW Anemia in chronic kidney disease (CKD) ESRD (end stage renal disease) NO DIALYSIS INDICATION AT THIS TIME; AVF PLACEMENT IN CASE DIALYSIS NEEDED IN FUTURE ESRD needing dialysis Herpes zoster Hypercalcemia Hyperphosphatemia Hypertension Metabolic acidosis Myofascial pain Osteoarthritis Pneumonia 11/2018- SYMPTOMS RESOLVED S/P ABX Pulmonary hypertension MILD (RSVP 44MMHG) Secondary hyperparathyroidism of renal origin Type 2 diabetes mellitus Type 2 diabetes mellitus DIET CONTROLLED Vitamin D deficiency Surgical History H/O stem cell transplant History of back surgery Total knee replacement status RIGHT/LEFT Family History Father Family history of diabetes mellitus Social History Smoking Status: Former smoker Cigarettes Per Day: 1-2; Smoking End Date: 1989; Second Hand Exposure: No; Hx Alcohol Use: No Hx Substance Use: No Preferred Language: Kittitian Communication Ability: Effective Environmental Geologist Required: No Beliefs That Will Affect Care: None Current Living Situation: Spouse Feels Safe at Home: Yes Safety Concerns: Feels Safe At This Time Assistive Devices: None Allergies Allergies Allergy/AdvReac Type Severity Reaction Status Date / Time clindamycin Allergy Severe Rash Verified 11/09/22 15:23 Sulfa (Sulfonamide Allergy Intermediate diarrhea, Verified 11/09/22 15:23 Antibiotics) rash cefprozil [From Cefzil] AdvReac Intermediate Diarrhea Verified 11/09/22 15:23 Home Meds Home Medications Medication Instructions Recorded Confirmed tamsulosin 0.4 mg capsule 0.4 mg PO QPM 12/17/18 11/09/22 doxycycline monohydrate 100 mg 100 mg PO BID 05/10/19 11/09/22 capsule montelukast 10 mg tablet 10 mg PO DAILY 05/15/20 11/09/22 (Singulair) amlodipine 10 mg tablet 10 mg PO DAILY 12/29/20 11/09/22 cyanocobalamin (vitamin B-12) 1,000 mcg IM MONTHLY 12/29/20 11/09/22 1,000 mcg/mL injection solution fluticasone propionate 110 1 puff inhalation QAM 12/29/20 11/09/22 mcg/actuation HFA aerosol inhaler (Flovent HFA) allopurinol 100 mg tablet 100 mg PO DAILY 01/13/21 11/09/22 furosemide 20 mg tablet 20 mg PO DAILY PRN Fluid Retention 01/13/21 11/09/22 insulin aspart U-100 100 unit/mL 0 unit subcut UD 01/13/21 11/09/22 (3 mL) subcutaneous pen (Novolog FlexPen U-100 Insulin aspart) trazodone 50 mg tablet 100 mg PO HS 01/13/21 11/09/22 acyclovir 400 mg tablet 400 mg PO DAILY 11/04/22 11/09/22 Previous Rx's Medication Instructions Recorded sevelamer carbonate 800 mg tablet 800 mg PO TID #270 tabs 10/11/22 aspirin 81 mg tablet,delayed 81 mg PO QAM #0 tabs 11/08/22 release metoprolol succinate 25 mg 12.5 mg PO QAM #30 tabs 11/08/22 tablet,extended release 24 hr rosuvastatin 5 mg tablet (Crestor) 5 mg PO DAILY #30 tabs 11/08/22 Results & Data (ED) Vital Signs Vital Signs - 24 hr 11/09/22 11:37 11/09/22 11:37 11/09/22 11:47 Temperature 36.8 C Temperature Source Oral Pulse Rate 113 H 108 H Pulse Rate [Apical] 105 H Pulse Rate from SpO2 Sensor Respiratory Rate 20 20 Respiratory Effort / Characteristics Non-Labored Respiratory Depth Normal Deep Respiratory Pattern Regular Blood Pressure 103/65 Blood Pressure [Right Arm] 103/65 Blood Pressure Mean 77 Blood Pressure Mean [Right Arm] 77 Pulse Oximetry 100 100 Oxygen Delivery Method Room Air Room Air Sepsis Recent Fever Within 48 Hours No Sepsis New/Unexplained Change in Mental Status No Sepsis Action Taken by Nursing No Action Required 11/09/22 11:48 11/09/22 11:47 11/09/22 11:50 Temperature Temperature Source Pulse Rate 106 H 109 H 101 H Pulse Rate [Apical] Pulse Rate from SpO2 Sensor 109 H Respiratory Rate 29 H 11 L Respiratory Effort / Characteristics Respiratory Depth Respiratory Pattern Blood Pressure Blood Pressure [Right Arm] Blood Pressure Mean Blood Pressure Mean [Right Arm] Pulse Oximetry 100 Oxygen Delivery Method Sepsis Recent Fever Within 48 Hours Sepsis New/Unexplained Change in Mental Status Sepsis Action Taken by Nursing 11/09/22 14:01 11/09/22 14:35 11/09/22 15:43 Temperature Temperature Source Pulse Rate 74 Pulse Rate [Apical] 76 120 H Pulse Rate from SpO2 Sensor Respiratory Rate 18 18 Respiratory Effort / Characteristics Non-Labored Non-Labored Respiratory Depth Normal Normal Respiratory Pattern Blood Pressure Blood Pressure [Right Arm] 108/60 176/112 H Blood Pressure Mean Blood Pressure Mean [Right Arm] 76 133 Pulse Oximetry 97 95 Oxygen Delivery Method Room Air Room Air Sepsis Recent Fever Within 48 Hours Sepsis New/Unexplained Change in Mental Status Sepsis Action Taken by Nursing 11/09/22 12:00 11/09/22 12:10 11/09/22 12:20 Temperature Temperature Source Pulse Rate 87 86 84 Pulse Rate [Apical] Pulse Rate from SpO2 Sensor 89 86 84 Respiratory Rate 14 25 H 14 Respiratory Effort / Characteristics Respiratory Depth Respiratory Pattern Blood Pressure Blood Pressure [Right Arm] Blood Pressure Mean Blood Pressure Mean [Right Arm] Pulse Oximetry 100 100 100 Oxygen Delivery Method Sepsis Recent Fever Within 48 Hours Sepsis New/Unexplained Change in Mental Status Sepsis Action Taken by Nursing 11/09/22 12:30 11/09/22 12:40 11/09/22 12:50 Temperature Temperature Source Pulse Rate 84 81 95 H Pulse Rate [Apical] Pulse Rate from SpO2 Sensor 84 83 89 Respiratory Rate 14 17 18 Respiratory Effort / Characteristics Respiratory Depth Respiratory Pattern Blood Pressure Blood Pressure [Right Arm] Blood Pressure Mean Blood Pressure Mean [Right Arm] Pulse Oximetry 100 100 97 Oxygen Delivery Method Sepsis Recent Fever Within 48 Hours Sepsis New/Unexplained Change in Mental Status Sepsis Action Taken by Nursing 11/09/22 13:00 11/09/22 13:51 11/09/22 13:51 Temperature Temperature Source Pulse Rate 79 79 Pulse Rate [Apical] Pulse Rate from SpO2 Sensor 80 Respiratory Rate 16 16 Respiratory Effort / Characteristics Respiratory Depth Respiratory Pattern Blood Pressure 108/60 Blood Pressure [Right Arm] Blood Pressure Mean 76 Blood Pressure Mean [Right Arm] Pulse Oximetry 99 Oxygen Delivery Method Sepsis Recent Fever Within 48 Hours Sepsis New/Unexplained Change in Mental Status Sepsis Action Taken by Nursing 11/09/22 14:00 11/09/22 14:10 11/09/22 14:20 Temperature Temperature Source Pulse Rate 76 73 73 Pulse Rate [Apical] Pulse Rate from SpO2 Sensor 76 71 72 Respiratory Rate 15 14 17 Respiratory Effort / Characteristics Respiratory Depth Respiratory Pattern Blood Pressure Blood Pressure [Right Arm] Blood Pressure Mean Blood Pressure Mean [Right Arm] Pulse Oximetry 99 98 100 Oxygen Delivery Method Sepsis Recent Fever Within 48 Hours Sepsis New/Unexplained Change in Mental Status Sepsis Action Taken by Nursing 11/09/22 14:30 11/09/22 14:40 11/09/22 14:50 Temperature Temperature Source Pulse Rate 71 72 75 Pulse Rate [Apical] Pulse Rate from SpO2 Sensor 73 72 82 Respiratory Rate 19 15 16 Respiratory Effort / Characteristics Respiratory Depth Respiratory Pattern Blood Pressure Blood Pressure [Right Arm] Blood Pressure Mean Blood Pressure Mean [Right Arm] Pulse Oximetry 100 98 92 Oxygen Delivery Method Sepsis Recent Fever Within 48 Hours Sepsis New/Unexplained Change in Mental Status Sepsis Action Taken by Nursing 11/09/22 15:00 11/09/22 15:10 11/09/22 15:20 Temperature Temperature Source Pulse Rate 73 75 75 Pulse Rate [Apical] Pulse Rate from SpO2 Sensor 74 78 75 Respiratory Rate 16 23 12 Respiratory Effort / Characteristics Respiratory Depth Respiratory Pattern Blood Pressure Blood Pressure [Right Arm] Blood Pressure Mean Blood Pressure Mean [Right Arm] Pulse Oximetry 95 99 97 Oxygen Delivery Method Sepsis Recent Fever Within 48 Hours Sepsis New/Unexplained Change in Mental Status Sepsis Action Taken by Nursing 11/09/22 15:30 11/09/22 15:40 11/09/22 15:50 Temperature Temperature Source Pulse Rate 73 75 73 Pulse Rate [Apical] Pulse Rate from SpO2 Sensor 73 76 73 Respiratory Rate 7 L 11 L 11 L Respiratory Effort / Characteristics Respiratory Depth Respiratory Pattern Blood Pressure Blood Pressure [Right Arm] Blood Pressure Mean Blood Pressure Mean [Right Arm] Pulse Oximetry 98 96 97 Oxygen Delivery Method Sepsis Recent Fever Within 48 Hours Sepsis New/Unexplained Change in Mental Status Sepsis Action Taken by Nursing 11/09/22 16:00 11/09/22 16:10 Temperature Temperature Source Pulse Rate 73 74 Pulse Rate [Apical] Pulse Rate from SpO2 Sensor 74 74 Respiratory Rate 11 L 11 L Respiratory Effort / Characteristics Respiratory Depth Respiratory Pattern Blood Pressure Blood Pressure [Right Arm] Blood Pressure Mean Blood Pressure Mean [Right Arm] Pulse Oximetry 99 97 Oxygen Delivery Method Room Air Sepsis Recent Fever Within 48 Hours Sepsis New/Unexplained Change in Mental Status Sepsis Action Taken by Nursing Laboratory Data Attestation: I reviewed the patient's lab results. 11/09/22 11:47 11/09/22 11:47 Lab Results 11/09/22 11/09/22 11/09/22 Range/Units 11:47 11:47 11:47 WBC 5.62 (4.8-10.8) K/ul RBC 2.41 L (4.70-6.10) M/uL Hgb 8.4 L (14.0-18.0) g/dl Hct 23.4 L (42.0-52.0) % MCV 97.1 (80.0-100.0) fL MCH 34.9 H (25.0-34.0) pg MCHC 35.9 (32.0-36.0) g/dL RDW Std Deviation 51.8 H (36.4-46.3) fL RDW Coeff of Krish 14.9 H (11.5-14.5) % Plt Count 192 (130-400) K/uL MPV 10.0 (9.4-12.4) fL Immature Gran % (Auto) 0.7 % Neut % (Auto) 55.7 % Lymph % (Auto) 30.2 % Woods % (Auto) 8.9 % Eos % (Auto) 3.6 % Baso % (Auto) 0.9 % Neut # (Auto) 3.13 (1.40-6.50) K/uL Lymph # (Auto) 1.70 (1.2-3.4) K/uL Woods # (Auto) 0.50 (0.11-0.59) K/uL Eos # (Auto) 0.20 (0-0.50) K/uL Baso # (Auto) 0.05 (0-0.2) K/uL Immature Gran # (Auto) 0.04 (0.01-0.20) K/uL PT 10.6 (9.0-12.0) Seconds INR 1.0 (0.9-1.1) Sodium 142 (136-145) mmol/L Potassium 3.3 L (3.5-5.1) mmol/L Chloride 100 (98-107) mmol/L Carbon Dioxide 25 (21-32) mmol/L Anion Gap 17 H (3-11) BUN 20 (6-23) mg/dl Creatinine 4.44 H D (0.6-1.4) mg/dl Est Cr Clr Drug Dosing Not Reportable Est GFR ( Amer) 14.3 ml/min Est GFR (Non-Af Amer) 12.3 ml/min BUN/Creatinine Ratio 4.5 L (10-20) Glucose 160 H (70-99(Fasting)) mg/dl Calcium 9.3 (8.6-10.3) mg/dl Phosphorus 1.4 L* (2.5-4.9) mg/dl Magnesium 1.8 (1.7-2.4) mg/dl Total Bilirubin 0.6 (0.2-1.0) mg/dl AST 15 (13-39) U/L ALT 10 (7-52) U/L Alkaline Phosphatase 61 (34-104) U/L Troponin I High Sens 19.3 (0-20) pg/ml Total Protein 6.4 (6.0-8.3) gm/dl Albumin 4.3 (3.4-5.0) gm/dl Globulin 2.1 L (2.5-4.0) gm/dl Albumin/Globulin Ratio 2.0 (0.9-2) Lipase 40 (11-82) U/L SARS-CoV-2, RNA, NAAT (NEGATIVE) 11/09/22 Range/Units 11:48 WBC (4.8-10.8) K/ul RBC (4.70-6.10) M/uL Hgb (14.0-18.0) g/dl Hct (42.0-52.0) % MCV (80.0-100.0) fL MCH (25.0-34.0) pg MCHC (32.0-36.0) g/dL RDW Std Deviation (36.4-46.3) fL RDW Coeff of Krish (11.5-14.5) % Plt Count (130-400) K/uL MPV (9.4-12.4) fL Immature Gran % (Auto) % Neut % (Auto) % Lymph % (Auto) % Woods % (Auto) % Eos % (Auto) % Baso % (Auto) % Neut # (Auto) (1.40-6.50) K/uL Lymph # (Auto) (1.2-3.4) K/uL Woods # (Auto) (0.11-0.59) K/uL Eos # (Auto) (0-0.50) K/uL Baso # (Auto) (0-0.2) K/uL Immature Gran # (Auto) (0.01-0.20) K/uL PT (9.0-12.0) Seconds INR (0.9-1.1) Sodium (136-145) mmol/L Potassium (3.5-5.1) mmol/L Chloride (98-107) mmol/L Carbon Dioxide (21-32) mmol/L Anion Gap (3-11) BUN (6-23) mg/dl Creatinine (0.6-1.4) mg/dl Est Cr Clr Drug Dosing Est GFR ( Amer) ml/min Est GFR (Non-Af Amer) ml/min BUN/Creatinine Ratio (10-20) Glucose (70-99(Fasting)) mg/dl Calcium (8.6-10.3) mg/dl Phosphorus (2.5-4.9) mg/dl Magnesium (1.7-2.4) mg/dl Total Bilirubin (0.2-1.0) mg/dl AST (13-39) U/L ALT (7-52) U/L Alkaline Phosphatase (34-104) U/L Troponin I High Sens (0-20) pg/ml Total Protein (6.0-8.3) gm/dl Albumin (3.4-5.0) gm/dl Globulin (2.5-4.0) gm/dl Albumin/Globulin Ratio (0.9-2) Lipase (11-82) U/L SARS-CoV-2, RNA, NAAT POSITIVE A* (NEGATIVE) Administered Medications Doxycycline Hyclate (Doxycycline Hyclate 100 Mg Cap) 100 mg PO BID GEMMA Stop: 12/09/22 20:59 Last Admin: 11/09/22 20:56 Dose: 100 mg Documented By: ROBERT Heparin Sodium (Porcine) (Heparin Sod 5,000 Unit/0.5 Ml Vial) 5,000 units SQ BID GEMMA Stop: 12/09/22 21:14 Last Admin: 11/09/22 21:52 Dose: 5,000 units Documented By: ROBERT Tamsulosin HCl (Tamsulosin Hcl 0.4 Mg Cap) 0.4 mg PO QPM GEMMA Stop: 12/09/22 20:59 Last Admin: 11/09/22 20:56 Dose: 0.4 mg Documented By: ROBERT Trazodone HCl (Trazodone Hcl 100 Mg Tab) 100 mg PO HS GEMMA Stop: 12/09/22 20:59 Last Admin: 11/09/22 20:56 Dose: 100 mg Documented By: ROBERT Imaging Data Radiologist's Impression: Chest X-Ray 11/09/22 11:38 SINGLE VIEW CHEST CLINICAL HISTORY: Atypical chest pain. FINDINGS: An AP, portable, upright chest radiograph is compared to study dated 11/05/2022 and correlated with chest CT dated 04/26/2020. The heart is enlarged. The pulmonary vasculature is noncongested. There is mild elevation of the right hemidiaphragm and bibasilar scarring/atelectasis. No airspace consolidation or large pleural effusion is identified. No pneumothorax is seen. The skeletal structures are osteopenic. The bony thorax is grossly intact. IMPRESSION: Cardiomegaly with no acute cardiopulmonary abnormality. ACT 112: Negative or not required by law. Electronically signed by: Anuj Douglas M.D. 11/09/2022 12:[address] 11/09/22 12:56 CT SCAN OF THE CHEST WITHOUT IV CONTRAST CLINICAL HISTORY: Atypical chest pain. Left arm pain. COMPARISON STUDY: Chest CT dated 04/26/2020. Chest x-ray dated 11/09/2022. TECHNIQUE: CT scan of the thorax was performed from the thoracic inlet to the upper abdomen. Images are reviewed in the axial, sagittal, and coronal planes. IV contrast was not administered for this examination as per the referring clinician. A dose lowering technique was utilized adhering to the principles of ALARA. There is streak artifact from the left arm which could not be elevated above the chest. CT DOSE: 312.87 mGy.cm FINDINGS: Thyroid: Normal in size and heterogeneous and attenuation. Thoracic aorta: The thoracic aorta is normal in caliber and demonstrates bovine variant arch anatomy. Heart: The heart is enlarged noting a small to moderate pericardial effusion. The coronary arteries and mitral annulus are densely calcified. The pulmonary trunk is dilated, measuring 3.6 cm in diameter. This suggests pulmonary artery hypertension. Lungs and pleural spaces: The trachea and central airways are clear. There is bibasilar scarring/atelectasis. Foci of subpleural parenchymal scarring are seen throughout both lungs and there is chronic elevation of the right hemidiaphragm. There are numerous (greater than 30) subcentimeter pulmonary nodules scattered throughout both lungs. These measure up to 9 mm, are new from 2020, and are highly suggestive of multifocal metastatic disease. Volumetric Weigher nodules are seen in the right lower lobe on images #157 and #168, and in the left lower lobe on images #173 and #194. Mediastinum: There is no mediastinal lymphadenopathy. Ami: Not well assessed without IV contrast. Axillae: There is no axillary lymphadenopathy. Upper abdomen: There are calcified gallstones without CT evidence of acute cholecystitis. A small hiatal hernia is observed. Skeletal structures: The skeletal structures are osteopenic. Degenerative change and mild hyperkyphosis is noted in the thoracic spine. No lytic or blastic bony lesions are seen. Soft tissues: Gynecomastia is noted. IMPRESSION: 1. Cardiomegaly and pericardial effusion. 2. There is no airspace consolidation or pleural effusion. 3. There are numerous (greater than 30) subcentimeter pulmonary nodules. These are pathologically indeterminate, but new from 2019 and highly suspicious for multifocal pulmonary metastatic disease. Correlate with the patient's on cological history. 4. Cholelithiasis. 5. Additional findings as above. ACT 112: Positive. There are findings on this exam that require communication between the performing entity and the patient following Patient Test Result Information Act ([place] Act 112) guidelines. Electronically signed by: Anuj Douglas M.D. 11/09/2022 3:05 PM Discharge Plan Visit Data Chief Complaint: Cardiac Assessment Stated Complaint: CHEST PAIN, HERE TUES FOR SAME ED Provider: Ezra Ball Discharge Problem: Atypical chest pain, ESRD on hemodialysis, SARS-CoV-2 positive, Left arm pain, Pericardial effusion Patient Disposition: Admitted As Inpatient Discharge Instructions Interventions: ED Discharge Assessment Last Done: 11/09/22 19:44
--- NOTE | 2022-11-09 15:08 | CT Scan Report ---
CT SCAN OF THE CHEST WITHOUT IV CONTRAST CLINICAL HISTORY: Atypical chest pain. Left arm pain. COMPARISON STUDY: Chest CT dated 04/26/2020. Chest x-ray dated 11/09/2022. TECHNIQUE: CT scan of the thorax was performed from the thoracic inlet to the upper abdomen. Images are reviewed in the axial, sagittal, and coronal planes. IV contrast was not administered for this ex amination as per the referring clinician. A dose lowering technique was utilized adhering to the jihan ncigiovana of LEXY. There is streak artifact from the left arm which could not be elevated above the ch est. CT DOSE: 312.87 mGy.cm FINDINGS: Thyroid: Normal in size and heterogeneous and attenuation. Thoracic aorta: The thoracic aorta is normal in caliber and demonstrates bovine variant arch anatomy. Heart: The heart is enlarged noting a small to moderate pericardial effusion. The coronary arteries a nd mitral annulus are densely calcified. The pulmonary trunk is dilated, measuring 3.6 cm in diameter . This suggests pulmonary artery hypertension. Lungs and pleural spaces: The trachea and central airways are clear. There is bibasilar scarring/atel ectasis. Foci of subpleural parenchymal scarring are seen throughout both lungs and there is chronic elevation of the right hemidiaphragm. There are numerous (greater than 30) subcentimeter pulmonary no dules scattered throughout both lungs. These measure up to 9 mm, are new from 2019, and are highly foster ggestive of multifocal metastatic disease. Medical Records Coordinator nodules are seen in the right lower lobe on images #157 and #168, and in the left lower lobe on images #173 and #194. Mediastinum: There is no mediastinal lymphadenopathy. Ami: Not well assessed without IV contrast. Axillae: There is no axillary lymphadenopathy. Upper abdomen: There are calcified gallstones without CT evidence of acute cholecystitis. A small hia hira hernia is observed. Skeletal structures: The skeletal structures are osteopenic. Degenerative change and mild hyperkyphos is is noted in the thoracic spine. No lytic or blastic bony lesions are seen. Soft tissues: Gynecomastia is noted. IMPRESSION: 1. Cardiomegaly and pericardial effusion. 2. There is no airspace consolidation or pleural effusion. 3. There are numerous (greater than 30) subcentimeter pulmonary nodules. These are pathologically ind eterminate, but new from 2019 and highly suspicious for multifocal pulmonary metastatic disease. Hilary elate with the patient's oncological history. 4. Cholelithiasis. 5. Additional findings as above. ACT 112: Positive. There are findings on this exam that require communication between the performing entity and the patient following Patient Test Result Information Act ([place] Act 112) guidelines. Electronically signed by: Anuj Douglas M.D. 11/09/2022 3:05 PM
--- NOTE | 2022-11-09 16:05 | History & Physical Report ---
Date of Service November 09, 2022 Assessment & Plan (1) Chest pain: Plan: History concerning for acute coronary syndrome. If he hadn't just been admitted for the same symptoms (more intense previously) I would consider treating with IV heparin but given minimal troponin increase with previously normal TTE will defer this. However I do suspect both chest pains were due to underlying coronary artery disease and occurring while he is on dialysis due to decreased blood supply during this time (effectively a stress test or exertional chest pain). Events likely are just not long enough for significant troponin I increase or wall motion abnormalities ie. stable/unstable angina. Continue his usual aspirin 81mg PO daily, metoprolol, rosuvastatin (lipid profile in AM) Consult cardiology for consideration of cardiac catheterization - will defer to cardiology with regards to repeating his recent echo if felt to be necessary to make this decision Patient and are concerned that these have occurred after recent shoulder vein angioplasty; correlation could simply be co-incidence although possibly anemia worse after procedure could also explain correlation (last Hgb before events was in 2020 therefore unclear on this correlation though). Will defer treating anemia as Hgb > 8 and he recently had EPO on 11/06 so likely to continue to increase. Highly doubt PE given intermittent nature and complete resolution of symptoms however to reduce their concern we will get US venous doppler to assess for DVT (2) SARS-CoV-2 positive: Plan: Abbot ID now test positive. Isolation precautions ordered. He is currently back to his baseline with no symptoms of COVID. Asymptomatic vs. pre-symptomatic vs. false positive test Will get confirmatory test with Cepheid nasopharyngeal swab. (3) Hypophosphatemia: Plan: Since this was taken shortly after dialysis will elect to repeat lab and replace as necessary - possibly contributing towards chest pain as can lower myocardial contractibility Hold phosphate binders (4) Abnormal laboratory test: Plan: Elevated anion gap with normal bicarb. Unclear cause of this but again was just taken after dialysis therefore will repeat and investigate if still elevated. 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 He was recently admitted for the same symptoms with an episode on November 04. He reports that episode was more intense than today. He was admitted from November 04 - 2022 due to possible NSTEMI - subsequent only mild troponin elevation and no wall motion abnormalities on TTE essentially ruled this out and he underwent subsequent dialysis in hospital without issue. Today about half way through dialysis the same thing occurred. He reported pain down both arms - left > right and across his chest. Lasted for 35-40 minutes and resolved with nitroglycerin given at the end of the procedure. Associated feeling warm, he was not diaphoretic like last time, mild short lived nausea which he cannot remember if this was shortly after or before the nitroglycerin. Unknown if exertional as occurred during dialysis. No association with food. No palpitation, claudication, orthopnea or PND. He is currently chest pain free. In the ER EKG was unremarkable compared to prior. Initial high sensitivity troponin I 19.3. He was referred to medicine for admission and ongoing management of chest pain. Allergies Allergy/AdvReac Type Severity Reaction Status Date / Time clindamycin Allergy Severe Rash Verified 11/09/22 15:23 Sulfa (Sulfonamide Allergy Intermediate diarrhea, Verified 11/09/22 15:23 Antibiotics) rash cefprozil [From Cefzil] AdvReac Intermediate Diarrhea Verified 11/09/22 15:23 Home Medications Medication Instructions Recorded Confirmed Type tamsulosin 0.4 mg capsule 0.4 mg PO QPM 12/17/18 11/09/22 History doxycycline monohydrate 100 mg 100 mg PO BID 05/10/19 11/09/22 History capsule montelukast 10 mg tablet 10 mg PO DAILY 05/15/20 11/09/22 History (Singulair) amlodipine 10 mg tablet 10 mg PO DAILY 12/29/20 11/09/22 History cyanocobalamin (vitamin B-12) 1,000 mcg IM MONTHLY 12/29/20 11/09/22 History 1,000 mcg/mL injection solution fluticasone propionate 110 1 puff inhalation QAM 12/29/20 11/09/22 History mcg/actuation HFA aerosol inhaler (Flovent HFA) allopurinol 100 mg tablet 100 mg PO DAILY 01/13/21 11/09/22 History furosemide 20 mg tablet 20 mg PO DAILY PRN Fluid Retention 01/13/21 11/09/22 History insulin aspart U-100 100 unit/mL 0 unit subcut UD 01/13/21 11/09/22 History (3 mL) subcutaneous pen (Novolog FlexPen U-100 Insulin aspart) trazodone 50 mg tablet 100 mg PO HS 01/13/21 11/09/22 History sevelamer carbonate 800 mg tablet 800 mg PO TID #270 tabs 10/11/22 11/09/22 Rx acyclovir 400 mg tablet 400 mg PO DAILY 11/04/22 11/09/22 History aspirin 81 mg tablet,delayed 81 mg PO QAM #0 tabs 11/08/22 11/09/22 Rx release metoprolol succinate 25 mg 12.5 mg PO QAM #30 tabs 11/08/22 11/09/22 Rx tablet,extended release 24 hr rosuvastatin 5 mg tablet (Crestor) 5 mg PO DAILY #30 tabs 11/08/22 11/09/22 Rx Past Med/Surg History Medical History (Updated 11/10/22 @ 00:34 by Ezra Ball MD) Amyloidosis ON CHEMO CYBORD- EVERY FRIDAY IV INFUSION INCLUDING DEXAMETHASONE (40MG DURING INFUSION PER HEME/ONC)- AMYLOIDOSIS DX 2/2 WORKUP FOR CKD Anemia CHRONIC; BASELINE HGB 9-10 RANGE PER CHART REVIEW Anemia in chronic kidney disease (CKD) ESRD (end stage renal disease) NO DIALYSIS INDICATION AT THIS TIME; AVF PLACEMENT IN CASE DIALYSIS NEEDED IN FUTURE ESRD needing dialysis Herpes zoster Hypercalcemia Hyperphosphatemia Hypertension Metabolic acidosis Myofascial pain Osteoarthritis Pneumonia 11/2018- SYMPTOMS RESOLVED S/P ABX Pulmonary hypertension MILD (RSVP 44MMHG) Secondary hyperparathyroidism of renal origin Type 2 diabetes mellitus Type 2 diabetes mellitus DIET CONTROLLED Vitamin D deficiency Surgical History H/O stem cell transplant History of back surgery Total knee replacement status RIGHT/LEFT Family History Father Family history of diabetes mellitus Social History Smoking Status: Former smoker Cigarettes Per Day: 1-2; Smoking End Date: 1989; Second Hand Exposure: No; Hx Alcohol Use: No Hx Substance Use: No Preferred Language: Australian Communication Ability: Effective Agency Director Required: No Beliefs That Will Affect Care: None Current Living Situation: Spouse Feels Safe at Home: Yes Safety Concerns: Feels Safe At This Time Assistive Devices: None Review of Systems Review of Systems: All systems reviewed & are unremarkable except as noted in HPI & below Physical Exam Constitutional: WD/WN, vitals as above no acute distress Eyes: + anicteric sclerae; normal pupil size ENMT: external ear and nose normal, oropharynx normal Neck: trachea midline, no thyromegaly Respiratory: normal respiratory effort, lungs clear to auscultation Cardiovascular: Rate/Rhythm: regular rate and regular rhythm Heart Sounds: no murmur Extremities: normal capillary refill and + AV fistula (left); no calf tenderness and no pedal edema Gastrointestinal (Abdomen): normal bowel sounds, soft, nontender, no h epatosplenomegaly Musculoskeletal: no cyanosis or clubbing, extremities motor strength 5/5 Skin: no rashes, warm and dry Neurologic: moves all extremities and awake; not confused Psychiatric: A+Ox3, euthymic affect Genitourinary: no CVA tenderness Results & Data Results & Data Vital Signs (Past 12 Hours) Vital Signs Temp Pulse Pulse Resp BP BP Pulse Ox 11/09/22 15:43 74 11/09/22 14:35 120 H 18 176/112 H 95 11/09/22 14:01 76 18 108/60 97 11/09/22 11:50 101 H 11 L 11/09/22 11:47 109 H 29 H 100 11/09/22 11:48 106 H 11/09/22 11:47 108 H 100 11/09/22 11:37 105 H 20 103/65 100 11/09/22 11:37 36.8 C 113 H 20 103/65 O2 Del Method 11/09/22 15:43 11/09/22 14:35 Room Air 11/09/22 14:01 Room Air 11/09/22 11:50 11/09/22 11:47 11/09/22 11:48 11/09/22 11:47 Room Air 11/09/22 11:37 Room Air 11/09/22 11:37 Laboratory Results Abnormal lab results 11/09/22 11/09/22 11/09/22 Range/Units 11:47 11:47 11:48 RBC 2.41 L (4.70-6.10) M/uL Hgb 8.4 L (14.0-18.0) g/dl Hct 23.4 L (42.0-52.0) % MCH 34.9 H (25.0-34.0) pg RDW Std Deviation 51.8 H (36.4-46.3) fL RDW Coeff of Krish 14.9 H (11.5-14.5) % Potassium 3.3 L (3.5-5.1) mmol/L Anion Gap 17 H (3-11) BUN (6-23) mg/dl Creatinine 4.44 H D (0.6-1.4) mg/dl BUN/Creatinine Ratio 4.5 L (10-20) Glucose 160 H (70-99(Fasting)) mg/dl Phosphorus 1.4 L* (2.5-4.9) mg/dl Troponin I High Sens (0-20) pg/ml Globulin 2.1 L (2.5-4.0) gm/dl SARS-CoV-2, RNA, NAAT POSITIVE A* (NEGATIVE) 11/09/22 11/09/22 Range/Units 16:49 20:54 RBC (4.70-6.10) M/uL Hgb (14.0-18.0) g/dl Hct (42.0-52.0) % MCH (25.0-34.0) pg RDW Std Deviation (36.4-46.3) fL RDW Coeff of Krish (11.5-14.5) % Potassium (3.5-5.1) mmol/L Anion Gap (3-11) BUN 24 H (6-23) mg/dl Creatinine 5.56 H* D (0.6-1.4) mg/dl BUN/Creatinine Ratio 4.3 L (10-20) Glucose 102 H (70-99(Fasting)) mg/dl Phosphorus (2.5-4.9) mg/dl Troponin I High Sens 28.6 H (0-20) pg/ml Globulin (2.5-4.0) gm/dl SARS-CoV-2, RNA, NAAT (NEGATIVE) Diagnostic Findings SINGLE VIEW CHEST CLINICAL HISTORY: Atypical chest pain. FINDINGS: An AP, portable, upright chest radiograph is compared to study dated 11/05/2022 and correlated with chest CT dated 04/26/2020. The heart is enlarged. The pulmonary vasculature is noncongested. There is mild elevation of the right hemidiaphragm and bibasilar scarring/atelectasis. No airspace consolidation or large pleural effusion is identified. No pneumothorax is seen. The skeletal structures are osteopenic. The bony thorax is grossly intact. IMPRESSION: Cardiomegaly with no acute cardiopulmonary abnormality. CT SCAN OF THE CHEST WITHOUT IV CONTRAST CLINICAL HISTORY: Atypical chest pain. Left arm pain. COMPARISON STUDY: Chest CT dated 04/26/2020. Chest x-ray dated 11/09/2022. TECHNIQUE: CT scan of the thorax was performed from the thoracic inlet to the upper abdomen. Images are reviewed in the axial, sagittal, and coronal planes. IV contrast was not administered for this examination as per the referring clinician. A dose lowering technique was utilized adhering to the principles of ALARA. There is streak artifact from the left arm which could not be elevated above the chest. CT DOSE: 312.87 mGy.cm FINDINGS: Thyroid: Normal in size and heterogeneous and attenuation. Thoracic aorta: The thoracic aorta is normal in caliber and demonstrates bovine variant arch anatomy. Heart: The heart is enlarged noting a small to moderate pericardial effusion. The coronary arteries and mitral annulus are densely calcified. The pulmonary trunk is dilated, measuring 3.6 cm in diameter. This suggests pulmonary artery hypertension. Lungs and pleural spaces: The trachea and central airways are clear. There is bi basilar scarring/atelectasis. Foci of subpleural parenchymal scarring are seen throughout both lungs and there is chronic elevation of the right hemidiaphragm. There are numerous (greater than 30) subcentimeter pulmonary nodules scattered throughout both lungs. These measure up to 9 mm, are new from 2020, and are highly suggestive of multifocal metastatic disease. Reimbursement Manager nodules are seen in the right lower lobe on images #157 and #168, and in the left lower lobe on images #173 and #194. Mediastinum: There is no mediastinal lymphadenopathy. Ami: Not well assessed without IV contrast. Axillae: There is no axillary lymphadenopathy. Upper abdomen: There are calcified gallstones without CT evidence of acute cholecystitis. A small hiatal hernia is observed. Skeletal structures: The skeletal structures are osteopenic. Degenerative change and mild hyperkyphosis is noted in the thoracic spine. No lytic or blastic bony lesions are seen. Soft tissues: Gynecomastia is noted. IMPRESSION: 1. Cardiomegaly and pericardial effusion. 2. There is no airspace consolidation or pleural effusion. 3. There are numerous (greater than 30) subcentimeter pulmonary nodules. These are pathologically indeterminate, but new from 2019 and highly suspicious for multifocal pulmonary metastatic disease. Correlate with the patient's oncological history. 4. Cholelithiasis. 5. Additional findings as above. Medications Administered ER Medications Given: None ECG Rate (beats per minute): 100 Rhythm: normal sinus Findings: + left axis deviation and + prolonged QT Comparison ECG Date: from (November 05, 2022) Change: no significant change Code Status & VTE Plan Code Status Full VTE Prophylaxis Plan VTE Prophylaxis will be ordered: Yes PG Care Time/CCT Total # of Minutes Spent Total Time Spent with Patient: Total time spent is greater than 50% in coordination of care (as documented) at patient's floor/unit and/or counseling patient: Coding Level of Care Code 44584 INT INP/OBS CARE 3/75MIN Diagnoses Chest pain R07.9 SARS-CoV-2 positive U07.1 Hypophosphatemia E83.39 Abnormal laboratory test R89.9 ESRD needing dialysis N18.6; Z99.2 Anemia D64.9 HTN (hypertension) I10 Amyloidosis E85.9 Amyloidosis type: unspecified amyloidosis (8) Amyloidosis Amyloidosis type: unspecified amyloidosis Qualified Code(s): E85.9 - Amyloidosis, unspecified
--- NOTE | 2022-11-09 18:54 | Ultrasound Report ---
ULTRASOUND LEFT UPPER EXTREMITY VENOUS CLINICAL HISTORY: Left arm pain. COMPARISON STUDY: No priors.. TECHNIQUE: Real-time, grayscale, and color Doppler sonography of the deep veins of the left upper ext remity is performed. Compression and augmentation were utilized. FINDINGS: There is no sonographic evidence of deep venous thrombosis identified in the left upper ext remity. The left internal jugular, axillary, and brachial veins are patent and normally compressible. Normal venous waveforms and augmentation are seen within the left subclavian vein. The cephalic and basilic veins are clear. The visualized radial and ulnar veins are patent. The fistula in the antecub ital fossa is patent. IMPRESSION: There is no sonographic evidence of deep venous thrombosis identified in the left upper e xtremity. ACT 112: Negative or not required by law. Electronically signed by: Anuj Douglas M.D. 11/09/2022 6:52 PM
[2022-11-09] MEDS: DOXYCYCLINE HYCLATE 100 MG CAP PO SCH (20:56)
[2022-11-09] MEDS: traZODone HCL 100 MG TAB PO SCH (20:56)
[2022-11-09] MEDS: TAMSULOSIN HCL 0.4 MG CAP PO SCH (20:56)
[2022-11-09] MEDS ORDERED: ACETAMINOPHEN 325 MG TAB PO PRN (21:05)
[2022-11-09 21:30] LABS: BUN Creatinine Ratio 4.3 (10-20); Calcium 9.4 mg/dl (8.6-10.3); Creatinine Clr Calc Pharmacy 11.8 ml/min; Est GFR (African American) 10.9 ml/min; Est GFR (Non-African American) 9.4 ml/min; Phosphorus 3.3 mg/dl (2.5-4.9); Potassium 3.6 mmol/L (3.5-5.1)
[2022-11-09] MEDS: HEPARIN SOD 5,000 UNIT/0.5 ML VIAL SQ SCH (21:52)
[2022-11-10 06:14] LABS: BUN Creatinine Ratio 4.8 (10-20); Calcium 8.8 mg/dl (8.6-10.3); Chol HDL Ratio 3.2 (0-5); Creatinine Clr Calc Pharmacy 10.4 ml/min; Est GFR (African American) 9.4 ml/min; Est GFR (Non-African American) 8.1 ml/min; Potassium 3.9 mmol/L (3.5-5.1)
[2022-11-10 06:50] LABS: Hematocrit (blood only) 22.4 % (42.0-52.0); Hemoglobin 7.4 g/dl (14.0-18.0); Mean Corpuscular Hemoglobin 34.4 pg (25.0-34.0); Mean Corpuscular Volume 104.2 fL (80.0-100.0); Mean Platelet Volume 10.2 fL (9.4-12.4); Platelet Count 165 K/uL (130-400); RDW Coefficient of Variation 16.4 % (11.5-14.5); RDW Standard Deviation 59.7 fL (36.4-46.3); Red Blood Count 2.15 M/uL (4.70-6.10); White Blood Count 4.75 K/ul (4.8-10.8)
[2022-11-10 07:00] LABS: Basophils # (auto) 0.05 K/uL (0-0.2); Basophils % (auto) 1.1 %; Eosinophils # (auto) 0.19 K/uL (0-0.50); Immature Granulocytes # (auto) 0.02 K/uL (0.01-0.20); Immature Granulocytes % (auto) 0.4 %; Lymphocytes # (auto) 1.49 K/uL (1.2-3.4); Lymphocytes % (auto) 31.4 %; Monocytes # (auto) 0.52 K/uL (0.11-0.59); Monocytes % (auto) 10.9 %; Neutrophils # (auto) 2.48 K/uL (1.40-6.50); Neutrophils % (auto) 52.2 %; Polychromasia 1+; Tear Drop Cells 1+
[2022-11-10] MEDS: ASPIRIN 81 MG ECTAB PO SCH (07:41)
[2022-11-10] MEDS: amLODIPine BESYLATE 5 MG TAB PO SCH (07:41)
[2022-11-10] MEDS: allopurinoL 100 MG TAB PO SCH (07:42)
[2022-11-10] MEDS: DOXYCYCLINE HYCLATE 100 MG CAP PO SCH ×2 (07:42→19:55)
[2022-11-10] MEDS: HEPARIN SOD 5,000 UNIT/0.5 ML VIAL SQ SCH (07:42)
[2022-11-10] MEDS: METOPROLOL SUCC 25MG EXT REL TAB PO SCH (07:42)
[2022-11-10] MEDS: ACYCLOVIR 400 MG TAB PO SCH (07:42)
[2022-11-10] MEDS: ROSUVASTATIN CALCIUM 5 MG TAB PO SCH (07:42)
[2022-11-10] MEDS: MONTELUKAST SODIUM 10 MG TABLET PO SCH (07:43)
[2022-11-10] MEDS: FLUTICASONE FUROATE 100MCG 14 PUFFS/INHALER INH SCH (07:44)
[2022-11-10] MEDS ORDERED: EPOETIN ALFA 40,000 UNITS/ML VIAL SQ STA (09:11)
--- NOTE | 2022-11-10 11:47 | Electrocardiogram Report ---
Test Reason : Blood Pressure : / mmHG Vent. Rate : 100 BPM Atrial Rate : 100 BPM P-R Int : 104 ms QRS Dur : 096 ms QT Int : 400 ms P-R-T Axes : 000 -38 054 degrees QTc Int : 516 ms Sinus rhythm with short NM Left axis deviation Low voltage QRS Prolonged QT Abnormal ECG When compared with ECG of 05-NOV-2022 15:57, Minimal criteria for Anterior infarct are no longer Present Nonspecific T wave abnormality, improved in Lateral leads Confirmed by Mohinder Coleman ([id number]) on 11/10/2022 11:47:27 AM Referred By: REFERRED SELF Confirmed By:Mohinder Coleman
--- NOTE | 2022-11-10 11:53 | Nephrology Progress Note ---
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 dialysis has been uneventful until recently. 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 Recently had fistulogram with dilatation of AV fistula stenosis and since then had several episodes of chest pain while on dialysis. currently he is undergoing transplant evaluation at [facility]. It is unclear whether these episodes of chest pain at all related to fistula intervention. AV fistula has been functioning well since the intervention. blood pressure has been well controlled during both episode without any hypotensive episode however he was noted to have tachycardia with heart rate 120 is to 140s during the chest pain episode today. In ER, during exam his heart rate was well controlled without any arrhythmia noted on exam. However, with his ESRD status and with history of cardiac amyloidosis, he does have risk for coronary artery disease. Pulmonary nodule noted on CT chest however he has been following with Pulmonary at [facility], chest CT on02/20/22 showed stable b/l pulmonary nodule and had a PET scan done in May 2022 which was otherwise unremarkable. Electrolyte acceptable, phosphate improve, normal. Potassium normal. Blood pressure well controlled, volume status acceptable. Otherwise asymptomatic. -- Try next dialysis treatment with lower blood flow, tentatively plan for dialysis next Friday. -- waiting cardiology input regarding further management and intervention for re peated episodes of chest pain. if cardiac catheterization is indicated, we can plan on doing dialysis immediately after cardiac catheterization. -- left arm nephrology precaution, dose medications for EGFR less than 10 -- check iron study with next lab, give Epogen with next dialysis treatment Will follow. Admission and Anticipated Discharge Date Admission Date: November 09, 2022 Kaylene Carbajal was seen and evaluated this morning. Overall he has been feeling well, no further episode of chest pain, shortness of breath. Appetite has been decent. Blood pressure well controlled. Continues to void several times a day. Feeling at his baseline. Review of Systems Review of Systems: Detailed review of system was otherwise unremarkable. Physical Exam Constitutional: WD/WN, vitals as above no acute distress Eyes: + anicteric sclerae Neck: normal visual inspection Respiratory: no respiratory distress Auscultation: lungs clear to auscultation bilaterally Cardiovascular: Rate/Rhythm: regular rate and regular rhythm Heart Sounds: normal S1 and normal S2 Extremities: + AV fistula (left BC AVF, aneurysm stable, thrill and bruit.); no edema Skin: no rashes Neurologic: no focal motor deficits Psychiatric: Orientation: alert and oriented x 3 Results & Data Vital Signs (Past 12 Hours) Vital Signs Temp Pulse Pulse Resp BP Pulse Ox O2 Del Method 11/10/22 11:46 37.0 C 71 18 121/68 97 Room Air 11/10/22 07:40 37.1 C 76 18 116/67 97 Room Air 11/10/22 03:22 36.8 C 66 16 118/69 97 Room Air 11/10/22 00:37 75 PG Care Time/CCT Total # of Minutes Spent Total Time Spent with Patient: Total time spent is greater than 50% in coordination of care (as documented) at patient's floor/unit and/or counseling patient: Coding Level of Care Code 96633 SUB INP/OBS CARE 3/50MIN Diagnoses End stage renal disease N18.6 Chest pain R07.9 HTN (hypertension) I10 Anemia D64.9
--- NOTE | 2022-11-10 11:54 | Cardiology Progress Note ---
Date of Service November 10, 2022 Assessment & Plan (1) Chest pain: Plan: -chest discomfort radiating to the left arm with associated shortness of breath. -2nd episode while on hemodialysis in less than 1 week. -high sensitivity troponin peaked at 33.5. -no acute EKG changes. -started heparin drip. -profound anemia noted. Would follow CBC closely. -continue metoprolol succinate, amlodipine and aspirin. -Dr. Flores to assume care tomorrow and decide if cardiac catheterization indicated. (2) Elevated troponin: Plan: -as above. (3) PAF (paroxysmal atrial fibrillation): Plan: -no recurrence noted on monitor technician. (4) ESRD on hemodialysis: Admission and Anticipated Discharge Date Admission Date: November 09, 2022 Subjective The patient is resting comfortably in his room complaints of chest pain or dyspnea. We have long discussion regarding the need to consider a cardiac catheterization. He will discuss this further Dr. Flores tomorrow. Physical Exam Physical Exam: Exam per Dr. Avelar as patient in [facility] isolation. Results & Data Vital Signs (Past 12 Hours) Vital Signs Temp Pulse Pulse Resp BP Pulse Ox O2 Del Method 11/10/22 11:46 37.0 C 71 18 121/68 97 Room Air 11/10/22 07:40 37.1 C 76 18 116/67 97 Room Air 11/10/22 03:22 36.8 C 66 16 118/69 97 Room Air 11/10/22 00:37 75 Laboratory Results CBC notes hemoglobin 7.4, hematocrit 22.4, white count 4.75 and platelet count [id number]. Electrolytes note a sodium of 142, potassium 3.9, chloride 105, bicarb 20, BUN 30, creatinine 6.27, glucose of 88. Initial high sensitivity troponin was 19.3 with follow-up values of 28.6, 33.5, and 31.3. Diagnostic Findings EKG notes sinus rhythm with left axis deviation and low voltage throughout. PG Care Time/CCT Total # of Minutes Spent Total Time Spent with Patient: Total time spent is greater than 50% in coordination of care (as documented) at patient's floor/unit and/or counseling patient: Coding Level of Care Code 16322 SUB INP/OBS CARE 3/50MIN Diagnoses Chest pain R07.9 Elevated troponin R77.8 PAF (paroxysmal atrial fibrillation) I48.0 ESRD on hemodialysis N18.6; Z99.2
[2022-11-10 16:03] LABS: Hematocrit (blood only) 23.9 % (42.0-52.0); Hemoglobin 8.2 g/dl (14.0-18.0); Mean Corpuscular Hemoglobin 34.9 pg (25.0-34.0); Mean Corpuscular Hgb Conc 34.3 g/dL (32.0-36.0); Mean Corpuscular Volume 101.7 fL (80.0-100.0); Nucleated RBC # (auto) 0.02 K/uL (0-0.12); Nucleated RBC % (auto) 0.4 %; Platelet Count 194 K/uL (130-400); RDW Coefficient of Variation 16.5 % (11.5-14.5); RDW Standard Deviation 58.4 fL (36.4-46.3); Red Blood Count 2.35 M/uL (4.70-6.10); White Blood Count 5.24 K/ul (4.8-10.8)
--- NOTE | 2022-11-10 16:59 | Hospitalist Progress Note ---
Date of Service November 10, 2022 Assessment & Plan (1) Chest pain: Plan: History concerning for acute coronary syndrome. If he hadn't just been admitted for the same symptoms (more intense previously) I would consider treating with IV heparin but given minimal troponin increase with previously normal TTE will defer this. However I do suspect both chest pains were due to underlying coronary artery disease and occurring while he is on dialysis due to decreased blood supply during this time (effectively a stress test or exertional chest pain). Events likely are just not long enough for significant troponin I increase or wall motion abnormalities ie. stable/unstable angina. Continue his usual aspirin 81mg PO daily, metoprolol, rosuvastatin (lipid profile in AM) Consult cardiology for consideration of cardiac catheterization - will defer to cardiology with regards to repeating his recent echo if felt to be necessary to make this decision Discussed with Dr. Xiang Coleman, on risk:benefit of continuation of Heparin in pt with significant anemia, his preference would be to stop the Heparin, which I totally agree Patient and are concerned that these have occurred after recent shoulder vein angioplasty; correlation could simply be co-incidence although possibly anemia worse after procedure could also explain correlation (last Hgb before events was in 2020 therefore unclear on this correlation though). Will defer treating anemia as Hgb > 8 and he recently had EPO on 11/06 so likely to continue to increase. Hgb 8.4-->7.4-->8.2 Left UE sonogram neg for DVT (2) SARS-CoV-2 positive: Plan: Abbot ID now test positive. Isolation precautions ordered. He is currently back to his baseline with no symptoms of COVID. Asymptomatic vs. pre-symptomatic vs. false positive test SARS-CoV-2 (PCR) - Negative Pt to remain on isolation until infection control releases restriction (3) Hypophosphatemia: Plan: Since this was taken shortly after dialysis will elect to repeat lab and replace as necessary - possibly contributing towards chest pain as can lower myocardial contractibility Phos 1.4-->3.3-->4.0 (4) Abnormal laboratory test: Plan: Elevated anion gap with normal bicarb. 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 Plan VTE Prophylaxis -was on heparin 5000 units SQ BID will change to mechanical prophylaxis due to nemia Diet - dialysis renal Disposition - observation status to PCU Admission and Anticipated Discharge Date Admission Date: November 09, 2022 Kaylene Cabrajal was seen and evaluated this morning. Overall he has been feeling well, no further episode of chest pain, shortness of breath. Appetite has been decent. Blood pressure well controlled. Continues to void several times a day. Feeling at his baseline. Review of Systems Constitutional: afebrile Respiratory: denies sob Cardiovascular: Additional Comments: chest pain (just hurt, unable to describe as sharp, heavy, etc) radiated down his left arm. did not get worse with movement or pressing chest wall, tells me he has not had any episodes today Gastrointestinal: denied Physical Exam Physical Exam: WDWN WM in NAD Constitutional: WD/WN, vitals as above ENMT: external ear and nose normal, oropharynx normal Neck: trachea midline, no thyromegaly Respiratory: normal respiratory effort, lungs clear to auscultation Cardiovascular: No chest wall tenderness, REG without m/g/c Gastrointestinal (Abdomen): normal bowel sounds, soft, nontender, no hepatosplenomegaly Results & Data Results & Data Vital Signs (Past 12 Hours) Vital Signs Temp Pulse Resp BP Pulse Ox O2 Del Method 11/10/22 15:23 37.1 C 75 18 117/75 96 Room Air 11/10/22 11:46 37.0 C 71 18 121/68 97 Room Air 11/10/22 07:40 37.1 C 76 18 116/67 97 Room Air PG Care Time/CCT Total # of Minutes Spent Total Time Spent with Patient: Total time spent is greater than 50% in coordination of care (as documented) at patient's floor/unit and/or counseling patient: Coding Level of Care Code 62873 SUB INP/OBS CARE 2/35MIN Diagnoses Chest pain R07.9 SARS-CoV-2 positive U07.1 Hypophosphatemia E83.39 Abnormal laboratory test R89.9 ESRD needing dialysis N18.6; Z99.2 Anemia D64.9 HTN (hypertension) I10 Amyloidosis E85.9 Amyloidosis type: unspecified amyloidosis (8) Amyloidosis Amyloidosis type: unspecified amyloidosis Qualified Code(s): E85.9 - Amyloidosis, unspecified
[2022-11-10] MEDS: TAMSULOSIN HCL 0.4 MG CAP PO SCH (19:55)
[2022-11-10] MEDS: traZODone HCL 100 MG TAB PO SCH (19:55)
[2022-11-11 07:27] LABS: Albumin Level 3.8 gm/dl (3.4-5.0); BUN Creatinine Ratio 5.3 (10-20); Calcium 8.9 mg/dl (8.6-10.3); Est GFR (African American) 6.4 ml/min; Est GFR (Non-African American) 5.5 ml/min; Phosphorus 4.4 mg/dl (2.5-4.9); Potassium 4.1 mmol/L (3.5-5.1)
[2022-11-11 07:46] LABS: Ferritin 1093.1 ng/ml (8-388)
[2022-11-11] MEDS: allopurinoL 100 MG TAB PO SCH (08:15)
[2022-11-11] MEDS: ACYCLOVIR 400 MG TAB PO SCH (08:15)
[2022-11-11] MEDS: METOPROLOL SUCC 25MG EXT REL TAB PO SCH (08:16)
[2022-11-11] MEDS: amLODIPine BESYLATE 5 MG TAB PO SCH (08:16)
[2022-11-11] MEDS: FLUTICASONE FUROATE 100MCG 14 PUFFS/INHALER INH SCH (08:16)
[2022-11-11] MEDS: DOXYCYCLINE HYCLATE 100 MG CAP PO SCH ×2 (08:16→20:05)
[2022-11-11] MEDS: ASPIRIN 81 MG ECTAB PO SCH (08:16)
[2022-11-11] MEDS: ROSUVASTATIN CALCIUM 5 MG TAB PO SCH (08:17)
[2022-11-11] MEDS: MONTELUKAST SODIUM 10 MG TABLET PO SCH (08:17)
--- NOTE | 2022-11-11 09:19 | Cardiology Consultation ---
Date of Consultation November 11, 2022 Assessment & Plan (1) Chest pain: Plan IMPRESSIONS: 1. 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 b. Echocardiogram 05/2022 with normal biventricular size normal biventricular size and function with normal strain imaging (LVEF 60%) with mild left ventricular hypertrophy, type 1 diastolic dysfunction and findings consistent with chronicity of his cardiac amyloid with low E prime velocities, a small pe ricardial effusion and increased echo density of his left ventricle. 2. Chronic diastolic dysfunction with elevated left atrial pressures. 3. History of moderate pulmonary hypertension. 4. Multiple myeloma, status post stem cell transplant, currently on chemotherapy. 5. End-stage renal disease, started on dialysis 05/17/2021. 6. Anemia of chronic disease. 7. Hyperlipidemia. 8. Diabetes mellitus type 2. 9. Chronic small pericardial effusion. 10. History of significant parenchymal lung disease with improvement suggesting resolving organizing pneumonia by CAT scan, November,. 11. Repeat echo previous admission with preserved LVF, no wma, stable pericardial effusion As with Mr. Mccoy previous admission, his high-sensitivity troponin is negligible. Given that he is a dialysis patient this can all be attributed to his renal disease as it has stayed below 75. His EKG did have some ST depressions in his lateral leads on his previous admission but they appear improved this admission. Certainly his anemia could be playing a role in both his chest discomfort and EKG changes. He did not have any wall motion abnormalities on his echocardiogram last week. I called the transfer center at [facility] to see if they would accept him for catheterization and discussed his case with Dr. Grey. He recommends that Mr. Mccoy be stress tested prior to making a decision on any invasive procedures. He is a complicated patient with significant anemia and if he were to need stenting he would need subsequent dual antiplatelet therapy For at least 6 months. If he were to have disease not amenable to stenting he would most likely not be a candidate for bypass. Administration of contrast with his kidney function is also problematic. He will proceed with a nuclear medicine stress. Hold off on heparin drip for now. It is unclear if his COVID positive rapid swab and negative PCR indicate true infection or if it is playing any role in his chest pain. He has not had any symptoms of COvID. His blood pressure is controlled. Phone call with patient took 15 minutes. Case discussed with Dr. Flores. History of Present Illness Attending Physician: Vj Lees MD History of Present Illness Ms. Mccoy is chest pain free today. No events on the monitor. He has been chest pain free since his arrival in the emergency department. His symptoms followed the same pattern as his previous episode that brought him to the hospital last week. He had sharp pain while getting dialysis that started in the center of his chest and radiated across into his arms. He had associated shortness of breath and rapid respirations. His symptoms were relieved with nitro. Our visit was conducted over the phone as he is on airborne precautions for COVID. He was in his hospital room, I was at the nurses station. He identified himself with his name and date of . He consented to a phone visit and understands that it is billable. Allergies Allergy/AdvReac Type Severity Reaction Status Date / Time clindamycin Allergy Severe Rash Verified 11/09/22 15:23 Sulfa (Sulfonamide Allergy Intermediate diarrhea, Verified 11/09/22 15:23 Antibiotics) rash cefprozil [From Cefzil] AdvReac Intermediate Diarrhea Verified 11/09/22 15:23 Home Medications Medication Instructions Recorded Confirmed Type tamsulosin 0.4 mg capsule 0.4 mg PO QPM 12/17/18 11/09/22 History doxycycline monohydrate 100 mg 100 mg PO BID 05/10/19 11/09/22 History capsule montelukast 10 mg tablet 10 mg PO DAILY 05/15/20 11/09/22 History (Singulair) amlodipine 10 mg tablet 10 mg PO DAILY 12/29/20 11/09/22 History cyanocobalamin (vitamin B-12) 1,000 mcg IM MONTHLY 12/29/20 11/09/22 History 1,000 mcg/mL injection solution fluticasone propionate 110 1 puff inhalation QAM 12/29/20 11/09/22 History mcg/actuation HFA aerosol inhaler (Flovent HFA) allopurinol 100 mg tablet 100 mg PO DAILY 01/13/21 11/09/22 History furosemide 20 mg tablet 20 mg PO DAILY PRN Fluid Retention 01/13/21 11/09/22 History insulin aspart U-100 100 unit/mL 0 unit subcut UD 01/13/21 11/09/22 History (3 mL) subcutaneous pen (Novolog FlexPen U-100 Insulin aspart) trazodone 50 mg tablet 100 mg PO HS 01/13/21 11/09/22 History sevelamer carbonate 800 mg tablet 800 mg PO TID #270 tabs 10/11/22 11/09/22 Rx acyclovir 400 mg tablet 400 mg PO DAILY 11/04/22 11/09/22 History aspirin 81 mg tablet,delayed 81 mg PO QAM #0 tabs 11/08/22 11/09/22 Rx release metoprolol succinate 25 mg 12.5 mg PO QAM #30 tabs 11/08/22 11/09/22 Rx tablet,extended release 24 hr rosuvastatin 5 mg tablet (Crestor) 5 mg PO DAILY #30 tabs 11/08/22 11/09/22 Rx Patient History Medical History Amyloidosis ON CHEMO CYBORD- EVERY FRIDAY IV INFUSION INCLUDING DEXAMETHASONE (40MG DURING INFUSION PER HEME/ONC)- AMYLOIDOSIS DX 2/ WORKUP FOR CKD Anemia CHRONIC; BASELINE HGB 9-10 RANGE PER CHART REVIEW Anemia in chronic kidney disease (CKD) ESRD (end stage renal disease) NO DIALYSIS INDICATION AT THIS TIME; AVF PLACEMENT IN CASE DIALYSIS NEEDED IN FUTURE ESRD needing dialysis Herpes zoster Hypercalcemia Hyperphosphatemia Hypertension Metabolic acidosis Myofascial pain Osteoarthritis Pneumonia 11/2018- SYMPTOMS RESOLVED S/P ABX Pulmonary hypertension MILD (RSVP 44MMHG) Secondary hyperparathyroidism of renal origin Type 2 diabetes mellitus Type 2 diabetes mellitus DIET CONTROLLED Vitamin D deficiency Surgical History H/O stem cell transplant History of back surgery Total knee replacement status RIGHT/LEFT Family History Father Family history of diabetes mellitus Social History Smoking Status: Former smoker Cigarettes Per Day: 1-2; Smoking End Date: 1989; Second Hand Exposure: No; Hx Alcohol Use: No Hx Substance Use: No Preferred Language: Yoruba Communication Ability: Effective 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
--- NOTE | 2022-11-11 12:30 | Hospitalist Progress Note ---
Date of Service November 11, 2022 Assessment & Plan (1) Chest pain: Plan: Suspicious for demand ischemia in the setting of postdialysis reduced volume. Has been having increasing and recurrent episodes with dialysis Heparinization was previously discussed with cardiology, currently deferred Cardiology consulted. Do note dynamic EKG ST depressions and underlying anemia, but without wall motion changes on echo. If any intervention pursued patient would like this performed at [facility]. Given this transfer center she was contacted, request stress test to be done prior to transfer for any procedures. Dobutamine stress test being arranged for 11/12. If PCI with stents was performed, patient would need to be on dual antiplatelet therapy which is potentially challenging in the setting of his chronic anemia. Left upper extremity ultrasound negative for DVT Hemoglobin up trended to 8.2 patient pain-free at bedside assessment, no indication for transfusion at this time (2) SARS-CoV-2 positive: Plan: Abbot ID now test positive. Isolation precautions ordered. He is currently back to his baseline with no symptoms of COVID. Asymptomatic vs. pre-symptomatic vs. false positive test SARS-CoV-2 (PCR) - Negative Per infection control may repeat PCR COVID test, if negative may remove COVID precautions. Test pending (3) Hypophosphatemia: Plan: Since this was taken shortly after dialysis will elect to repeat lab and replace as necessary - possibly contributing towards chest pain as can lower myocardial contractibility Phos 1.4-->3.3-->4.0 --> 4.4 (4) Abnormal laboratory test: Plan: Elevated anion gap with normal bicarb, subsequently normalized (5) ESRD needing dialysis: Plan: Nephrology following (6) Anemia: Plan: Will defer management to nephrology with Suspect slightly below baseline due to recent vein angioplasty (7) HTN (hypertension): Plan: Continue metoprolol succinate 12.5mg PO QAM (8) Amyloidosis: Plan: CT changes reportedly known to his adoption coordinator. Did review last heme-onc otology oncology note patient did have a CT scan 2020 which documented numerous subcentimeter nodules as described in the report. Patient reports he has also had a PET scan which did not show cancer, have not been able to verify this. Courtesy message left with [facility] pulmonology Dr. 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 Plan VTE Prophylaxiscontinued on SCDs due to anemia Diet - dialysis renal Disposition - PCU Admission and Anticipated Discharge Date Admission Date: November 09, 2022 Kaylene Fish is seen at the bedside with his present. Reports that he generally feels well today, and has not had any episodes of chest pain since his prior dialysis. He is anxious about having to undergo catheterization, if he were to have to undergo procedure he would much prefer this to be performed at [place] with his other specialists. Did discuss the 30 subcentimeter nodules noted on his CT. He reports that while this was new from our imaging in 2019 he and his pulmonologistDr. Snyder in [facility] are aware of these and they have been stable. Patient reports he has had a recent CT which demonstrated these, and also had a PET scan which to his knowledge did not show evidence of enhanced uptake/cancer. Patient reports okay to reach out for notification confirmation with [facility] office. He is not currently having any shortness of breath or difficulty breathing. Does anticipate dialysis today, feels that 2 L target is too aggressive and that he would do better with 1 L. Notes that he is frequently very fatigued following dialysis Review of Systems Review of Systems: All systems reviewed & are unremarkable except as noted in HPI & below Physical Exam Physical Exam: General: A&Ox3. NAD. Cooperative. HEENT: Atraumatic, normocephalic. Vision and hearing grossly intact Pulm: CTAB A&P. -wheezes, -rales, -rhonchi. Symmetrical chest rise. No increased work of breathing. No respiratory distress. Cardiac: RRR, -mrg. Radial pulses intact and symmetrical. Abdominal: Nontender, nondistended, soft. BS present. Extremities: Moves all extremities equally, no ankle edema. Left AV fistula intact with thrill. Warm and well-perfused Results & Data Results & Data Vital Signs (Past 12 Hours) Vital Signs Temp Pulse Pulse Resp BP Pulse Ox O2 Del Method 11/11/22 11:57 36.7 C 67 18 120/70 97 Room Air 11/11/22 07:47 36.9 C 76 17 110/69 95 Room Air 11/11/22 05:41 71 11/11/22 03:45 36.8 C 73 18 115/66 98 Room Air PG Care Time/CCT Total # of Minutes Spent Total Time Spent with Patient: Total time spent is greater than 50% in coordination of care (as documented) at patient's floor/unit and/or counseling patient: Coding Level of Care Code 98629 SUB INP/OBS CARE 3/50MIN Diagnoses Chest pain R07.9 SARS-CoV-2 positive U07.1 Hypophosphatemia E83.39 Abnormal laboratory test R89.9 ESRD needing dialysis N18.6; Z99.2 Anemia D64.9 HTN (hypertension) I10 Amyloidosis E85.9 Amyloidosis type: unspecified amyloidosis (8) Amyloidosis Amyloidosis type: unspecified amyloidosis Qualified Code(s): E85.9 - Amyloidosis, unspecified
--- NOTE | 2022-11-11 13:11 | Nephrology Progress Note ---
Date of Service November 11, 2022 Assessment & Plan (1) End stage renal disease: (2) Chest pain: (3) HTN (hypertension): (4) Anemia: Plan ESRD secondary to amyloidosis, on hemodialysis via left brachiocephalic AV fistula since April 2021. dialysis has been uneventful until recently. 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 Recently had fistulogram with dilatation of AV fistula stenosis and since then had several episodes of chest pain while on dialysis. currently he is undergoing transplant evaluation at [facility]. It is unclear whether these episodes of chest pain at all related to fistula intervention. AV fistula has been functioning well since the intervention. blood pressure has been well controlled during both episode without any hypotensive episode however he was noted to have tachycardia with heart rate 120 is to 140s during the chest pain episode today. In ER, during exam his heart rate was well controlled without any arrhythmia noted on exam. However, with his ESRD status and with history of cardiac amyloidosis, he does have risk for coronary artery disease. Pulmonary nodule noted on CT chest however he has been following with Pulmonary at [facility], chest CT on02/20/22 showed stable b/l pulmonary nodule and had a PET scan done in May 2022 which was otherwise unremarkable. Electrolyte acceptable, phosphate improve, normal. Potassium normal. Blood pressure well controlled, volume status acceptable. Otherwise asymptomatic. -- plan for dialysis treatment with lower blood flow, UF to EDW. -- plan for stress test tomorrow, if cardiac catheterization indicated he will be transferred to [facility]. -- left arm nephrology precaution, dose medications for EGFR less than 10 -- will give Epogen with next dialysis treatment Will follow. Admission and Anticipated Discharge Date Admission Date: November 11, 2022 Kaylene Carbajal was seen and evaluated this morning with his Carolyn at bedside. Overall he has been feeling well, no further episode of chest pain, shortness of breath. Appetite has been decent. Blood pressure well controlled. Continues to void several times a day. Feeling at his baseline. Review of Systems Review of Systems: Detailed review of system was otherwise unremarkable. Physical Exam Constitutional: WD/WN, vitals as above no acute distress Results & Data Vital Signs (Past 12 Hours) Vital Signs Temp Pulse Pulse Resp BP Pulse Ox O2 Del Method 11/11/22 11:57 36.7 C 67 18 120/70 97 Room Air 11/11/22 07:47 36.9 C 76 17 110/69 95 Room Air 11/11/22 05:41 71 11/11/22 03:45 36.8 C 73 18 115/66 98 Room Air PG Care Time/CCT Total # of Minutes Spent Total Time Spent with Patient: Total time spent is greater than 50% in coordination of care (as documented) at patient's floor/unit and/or counseling patient: Coding Level of Care Code 76851 SUB INP/OBS CARE 2/35MIN Diagnoses End stage renal disease N18.6 Chest pain R07.9 HTN (hypertension) I10 Anemia D64.9
[2022-11-11 15:19] LABS: Adenovirus PCR Not Detected (NotDetected); Bordetella parapertussis PCR Not Detected (NotDetected); Bordetella pertussis PCR Not Detected (NotDetected); Chlamydia pneumoniae PCR Not Detected (NotDetected); Coronavirus 229E PCR Not Detected (NotDetected); Coronavirus CoV-2 (COVID19)PCR Not Detected (NotDetected); Coronavirus HKU1 PCR Not Detected (NotDetected); Coronavirus NL63 PCR Not Detected (NotDetected); Coronavirus OC43PCR Not Detected (NotDetected); Human Metapneumovirus PCR Not Detected (NotDetected); Influenza A PCR Not Detected (NotDetected); Influenza B PCR Not Detected (NotDetected); Mycoplasma pneumoniae PCR Not Detected (NotDetected); Parainfluenza Virus 1 PCR Not Detected (NotDetected); Parainfluenza Virus 2 PCR Not Detected (NotDetected); Parainfluenza Virus 3 PCR Not Detected (NotDetected); Parainfluenza Virus 4 PCR Not Detected (NotDetected); Respiratory Syncytial VirusPCR Not Detected (NotDetected); Rhinovirus/Enterovirus PCR Not Detected (NotDetected)
[2022-11-11] MEDS: FERROUS SULFATE 325 MG TAB PO SCH (17:22)
[2022-11-11] MEDS: TAMSULOSIN HCL 0.4 MG CAP PO SCH (20:04)
[2022-11-11] MEDS: traZODone HCL 100 MG TAB PO SCH (20:04)
[2022-11-12] MEDS: METOPROLOL SUCC 25MG EXT REL TAB PO SCH (08:02)
[2022-11-12] MEDS: amLODIPine BESYLATE 5 MG TAB PO SCH (08:03)
[2022-11-12] MEDS: allopurinoL 100 MG TAB PO SCH (08:03)
[2022-11-12] MEDS: ROSUVASTATIN CALCIUM 5 MG TAB PO SCH (08:03)
[2022-11-12] MEDS: ACYCLOVIR 400 MG TAB PO SCH (08:03)
[2022-11-12] MEDS: MONTELUKAST SODIUM 10 MG TABLET PO SCH (08:03)
[2022-11-12] MEDS: ASPIRIN 81 MG ECTAB PO SCH (08:03)
[2022-11-12 08:04] LABS: Basophils # (auto) 0.04 K/uL (0-0.2); Basophils % (auto) 0.8 %; Eosinophils # (auto) 0.23 K/uL (0-0.50); Eosinophils % (auto) 4.6 %; Hematocrit (blood only) 22.4 % (42.0-52.0); Hemoglobin 7.7 g/dl (14.0-18.0); Immature Granulocytes # (auto) 0.02 K/uL (0.01-0.20); Immature Granulocytes % (auto) 0.4 %; Lymphocytes # (auto) 1.54 K/uL (1.2-3.4); Mean Corpuscular Hemoglobin 35.3 pg (25.0-34.0); Mean Corpuscular Hgb Conc 34.4 g/dL (32.0-36.0); Mean Corpuscular Volume 102.8 fL (80.0-100.0); Monocytes # (auto) 0.45 K/uL (0.11-0.59); Monocytes % (auto) 9.1 %; Neutrophils # (auto) 2.68 K/uL (1.40-6.50); Neutrophils % (auto) 54.1 %; Platelet Count 166 K/uL (130-400); RDW Coefficient of Variation 16.6 % (11.5-14.5); RDW Standard Deviation 58.8 fL (36.4-46.3); Red Blood Count 2.18 M/uL (4.70-6.10); White Blood Count 4.96 K/ul (4.8-10.8)
[2022-11-12] MEDS: FERROUS SULFATE 325 MG TAB PO SCH (08:04)
[2022-11-12] MEDS: DOXYCYCLINE HYCLATE 100 MG CAP PO SCH ×2 (08:04→20:47)
[2022-11-12] MEDS: FLUTICASONE FUROATE 100MCG 14 PUFFS/INHALER INH SCH (08:05)
[2022-11-12 08:35] LABS: Macrocytosis Present; Ovalocytes 1+
[2022-11-12 08:46] LABS: Albumin Level 4.2 gm/dl (3.4-5.0); BUN Creatinine Ratio 6.3 (10-20); Calcium 9.3 mg/dl (8.6-10.3); Est GFR (African American) 5.4 ml/min; Est GFR (Non-African American) 4.6 ml/min; Phosphorus 5.8 mg/dl (2.5-4.9); Potassium 4.3 mmol/L (3.5-5.1)
[2022-11-12] MEDS ORDERED: REGADENOSON 0.4 MG/5 ML SYR IV ONE (09:34)
--- NOTE | 2022-11-12 09:45 | Cardiology Progress Note ---
Date of Service November 12, 2022 Assessment & Plan (1) Chest pain: Plan IMPRESSIONS: 1. 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 b. Echocardiogram 05/2022 with normal biventricular size normal biventricular size and function with normal strain imaging (LVEF 60%) with mild left ventricular hypertrophy, type 1 diastolic dysfunction and findings consistent with chronicity of his cardiac amyloid with low E prime velocities, a small pericardial effusion and increased echo density of his left ventricle. 2. Chronic diastolic dysfunction with elevated left atrial pressures. 3. History of moderate pulmonary hypertension. 4. Multiple myeloma, status post stem cell transplant, currently on chemotherapy. 5. End-stage renal disease, started on dialysis 05/17/2021. 6. Anemia of chronic disease. 7. Hyperlipidemia. 8. Diabetes mellitus type 2. 9. Chronic small pericardial effusion. 10. History of significant parenchymal lung disease with improvement suggesting resolving organizing pneumonia by CAT scan, November,. 11. Repeat echo previous admission with preserved LVF, no wma, stable pericardial effusion As with Mr. Mccoy previous admission, his high-sensitivity troponin is negligible. Given that he is a dialysis patient this can all be attributed to his renal disease as it has stayed below 75. His EKG did have some ST depressions in his lateral leads on his previous admission but they appear improved this admission. Certainly his anemia could be playing a role in both his chest discomfort and EKG changes. He did not have any wall motion abnormalities on his echocardiogram last week. I called the transfer center at [facility] to see if they would accept him for catheterization and discussed his case with Dr. Grey. He recommends that Mr. Mccoy be stress tested prior to making a decision on any invasive procedures. He is a complicated patient with significant anemia and if he were to need stenting he would need subsequent dual antiplatelet therapy for at least 6 months. If he were to have disease not amenable to stenting he would most likely not be a candidate for bypass. Administration of contrast with his kidney function is also problematic. He will proceed with a nuclear medicine stress today with dialysis following. If his stress is negative, we will avoid cardiac catheterization. It's possible his symptoms are secondary to vasospasm in which case we could treat with long acting nitrate. He is already on amlodipine. He has had a repeat COVID PCR which was negative again so he is off of COVID precautions. He has been without any symptoms. His blood pressure is controlled. Admission and Anticipated Discharge Date Admission Date: November 11, 2022 Subjective Mr. Mccoy was seen at bedside with his present. He has not had any chest pain since admission. He has no complaints. No events on telemetry, maintaining sinus rhythm with PVCs Review of Systems Review of Systems: All systems reviewed & are unremarkable except as noted in HPI & below Physical Exam Constitutional: WD/WN, vitals as above Respiratory: normal respiratory effort, lungs clear to auscultation Cardiovascular: Rate/Rhythm: regular rate and regular rhythm Heart Sounds: + murmur (RUSB 3/6 systolic murmur) Skin: no rashes, warm and dry Neurologic: moves all extremities and awake Psychiatric: A+Ox3, euthymic affect Results & Data Vital Signs (Past 12 Hours) Vital Signs Temp Pulse Pulse Resp BP Pulse Ox O2 Del Method 11/12/22 06:57 36.8 C 69 19 114/66 100 Room Air 11/11/22 22:01 81 11/12/22 04:45 36.5 C 76 18 112/69 97 Room Air 11/11/22 22:49 36.9 C 78 18 122/68 96 Room Air
--- NOTE | 2022-11-12 14:01 | Nephrology Progress Note ---
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 dialysis has been uneventful until recently. 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 Recently had fistulogram with dilatation of AV fistula stenosis and since then had several episodes of chest pain while on dialysis. currently he is undergoing transplant evaluation at [facility]. It is unclear whether these episodes of chest pain at all related to fistula intervention. AV fistula has been functioning well since the intervention. blood pressure has been well controlled during both episode without any hypotensive episode however he was noted to have tachycardia with heart rate 120 is to 140s during the chest pain episode today. In ER, during exam his heart rate was well controlled without any arrhythmia noted on exam. However, with his ESRD status and with history of cardiac amyloidosis, he does have risk for coronary artery disease. Pulmonary nodule noted on CT chest however he has been following with Pulmonary at [facility], chest CT on02/20/22 showed stable b/l pulmonary nodule and had a PET scan done in May 2022 which was otherwise unremarkable. Electrolyte acceptable, phosphate improve, normal. Potassium normal. Blood pressure well controlled, volume status acceptable. Otherwise asymptomatic. -- plan for dialysis treatment This afternoon after the stress test, with lower blood flow, UF to EDW. -- left arm nephrology precaution, dose medications for EGFR less than 10 -- will give Epogen with next dialysis treatment Will follow. Admission and Anticipated Discharge Date Admission Date: November 11, 2022 Subjective Solomon seen and evaluated this morning, overall has been feeling well. Due for stress test today and then dialysis in the afternoon. Remained asymptomatic. Electrolyte acceptable. Blood pressure control. Repeat COVID PCR came back negative. Review of Systems Review of Systems: Detailed review of system was otherwise unremarkable. Physical Exam Constitutional: WD/WN, vitals as above no acute distress Eyes: + anicteric sclerae Neck: normal visual inspection Respiratory: no respiratory distress Auscultation: lungs clear to auscultation bilaterally Cardiovascular: Rate/Rhythm: regular rate and regular rhythm Heart Sounds: normal S1 and normal S2 Extremities: + AV fistula (left BC AVF, aneurysm stable, thrill and bruit.); no edema Skin: no rashes Neurologic: no focal motor deficits Psychiatric: Orientation: alert and oriented x 3 Results & Data Vital Signs (Past 12 Hours) Vital Signs Temp Pulse Pulse Resp BP Pulse Ox O2 Del Method 11/12/22 06:00 70 11/12/22 11:30 37.0 C 70 19 109/64 98 Room Air 11/12/22 06:57 36.8 C 69 19 114/66 100 Room Air 11/12/22 04:45 36.5 C 76 18 112/69 97 Room Air PG Care Time/CCT Total # of Minutes Spent Total Time Spent with Patient: Total time spent is greater than 50% in coordination of care (as documented) at patient's floor/unit and/or counseling patient: Coding Level of Care Code 97936 SUB INP/OBS CARE 2/35MIN Diagnoses End stage renal disease N18.6 Chest pain R07.9 HTN (hypertension) I10 Anemia D64.9
[2022-11-12] MEDS ORDERED: EPOETIN ALFA 20,000 UNITS/ML VIAL IV SCH (14:06)
--- NOTE | 2022-11-12 16:24 | Myocardial Perfusion Study ---
Date of Service November 12, 2022 Myocardial Perfusion Study Blk Myocardial Perfusion Study Report [place] Act 112: Negative One day nuclear medicine technetium 99m Cardiolite myocardial perfusion scan Clinical history: This stress test is being performed because of a chest pain syndrome. Comparison: None Technique: For the stress portion of the study, 31.7 mCi of technetium 99m Cardiolite IV was injected at 1:10 pm on November 12, 2022. Thirty minutes following the injection, imaging of the heart was performed in multiple projections. For the rest portion of the study, 10.1 mCi of technetium 99m Cardiolite was injected IV at 11:30 am on November 12, 2022. One hour following the injection, imaging of the heart was performed in the same projections. Stress portion: The patient was given 0.4 mg of intravenous Lexiscan while being monitored continuously. The patient did not experience chest discomfort. Baseline EKG notes normal sinus rhythm with low voltage throughout. There were no significant ST segment changes seen during the protocol. There were no dysrhythmias. Findings: The short axis, vertical long axis, and horizontal long axis images were reviewed in detail. There was normal myocardial perfusion at both stress and rest thus excluding a prior myocardial infarction or evidence of stress induced myocardial ischemia. The left ventricle demonstrates normal systolic function without wall motion abnormalities. The left ventricular ejection fraction is 70%. Conclusions: 1. No scintigraphic evidence of a prior myocardial infarction or stress-induced myocardial ischemia. 2. No Lexiscan-induced chest pain. 3. No EKG changes. 4. Normal left ventricular systolic function without wall motion abnormality. Left ventricular ejection fraction is 70%. [facility] Myocardial perfusion code Procedure Code Procedure 1: Myocardial Perfusion Codes: 42857 Cardiovascular Stress Test, multiple Procedure 2: Myocardial Perfusion Codes: 14053 Cardiovascular Stress Test, supervision only Procedure 3: Myocardial Perfusion Codes: 18888 Cardiovascular Stress Test, interpretation and report
--- NOTE | 2022-11-12 19:57 | Hospitalist Progress Note ---
Date of Service November 12, 2022 Assessment & Plan (1) Chest pain: Plan: chest pain/bilateral arm pain/dyspnea - * no evidence of ACS * nuclear stress test negative today * recent noncontrast chest CT without acute findings (nodules are chronic) * no evidence of pericarditis or aortic dissection clinically I corresponded with cardiology regarding his symptoms & presentation - etiology of recent episodes of b/l arm pain & dyspnea uncertain. Related to fluid/blood shifts during HD sessions in the setting of chronic anemia? Other etiology? Pulmonary emboli? consider w/u for PE. recent LUE Doppler neg for DVT and fistula was patent on that study. symptoms not suggestive of GI tract etiology. (2) SARS-CoV-2 positive: Plan: false + repeat COVID PCR x 2 NEGATIVE airborne precautions d/c (3) Hypophosphatemia: Plan: phos levels relatively acceptable at this time holding his sevelamer at this time per nephrology (4) ESRD needing dialysis: Plan: typical schedule //Sat appreciate [facility] Nephrology assistance (5) Anemia: Plan: Hb <8 today s/p Epogen therapy recent Fe studies with adequate stores recent b12/folate wnl would Tx of 1 unit of PRBCs help #1 above?? (6) HTN (hypertension): Plan: Continue metoprolol succinate 12.5mg PO QAM Continue norvasc 10mg daily Continue flomax daily (7) Amyloidosis: Plan: Continue doxycycline and acyclovir for prophylaxis ESRD due to Amyloidosis, which has been in remission after stem cell transplant Pulmonary nodules felt 2nd to his amyloid based on his research support specialist's opinion follows with Dr Konstantin lawton) - pulmonary at [place]? Plan updated at bedside observe overnight for recurrent symptoms Admission and Anticipated Discharge Date Admission Date: November 11, 2022 Subjective patient has had 2 negative COVID PCR tests thus, airborne isolation has been removed (likely had false + NAAT test) patient was on the dialyzer during my assessment he reports no dyspnea, chest pain or b/l arm pain he has felt well throughout the day today no recurrent chest or arm symptoms since admission other than dyspnea/bilateral arm pain symptoms during previous HD sessions (he also had these symptoms the night of his left arm fistula surgery earlier this month) he has had no dyspnea during activity at home, no chest pain, no limiting symptoms denies pleuritic chest pain good appetite tele overnight wnl Review of Systems Review of Systems: gen - no fevers cv - no chest pain, no orthopnea pulm - no cough or dyspnea today GI - no abd pain/nausea/emesis Physical Exam Physical Exam: gen - currently getting dialyzed, NAD, lying comfortably flat in bed neck - no JVD mouth - MMM heart - RRR, s1 s2, 2/6 systolic murmur RUSB/LUSB lungs - CTA b/l abd - soft NT ND BS+ vascular - left arm fistula; radial pulses 2+ b/l; foot pulses 2+ b/l extremities - no edema psych - a/o x 3 chest - no reproducible chest wall pain to palpation Results & Data Results & Data Vital Signs (Past 12 Hours) Vital Signs Temp Pulse Pulse Pulse Resp BP BP 11/12/22 19:25 37.0 C 78 115/62 11/12/22 18:40 73 140/55 L 11/12/22 18:20 77 126/62 11/12/22 18:00 75 145/74 H 11/12/22 17:40 70 140/67 11/12/22 17:20 73 128/63 11/12/22 17:00 75 126/67 11/12/22 14:07 76 11/12/22 16:40 73 116/46 L 11/12/22 16:20 64 114/72 11/12/22 16:00 69 128/71 11/12/22 15:40 77 135/76 11/12/22 15:30 63 113/94 11/12/22 15:20 36.8 C 77 11/12/22 14:00 36.6 C 75 16 119/64 11/12/22 11:30 37.0 C 70 19 109/64 Pulse Ox O2 Del Method 11/12/22 19:25 11/12/22 18:40 11/12/22 18:20 11/12/22 18:00 11/12/22 17:40 11/12/22 17:20 11/12/22 17:00 11/12/22 14:07 11/12/22 16:40 11/12/22 16:20 11/12/22 16:00 11/12/22 15:40 11/12/22 15:30 11/12/22 15:20 11/12/22 14:00 100 Room Air 03/28/23 11:30 98 Room Air Laboratory Results Laboratory Results - last 24 hr 11/12/22 11/12/22 07:35 07:35 WBC 4.96 RBC 2.18 L Hgb 7.7 L Hct 22.4 L MCV 102.8 H MCH 35.3 H MCHC 34.4 RDW Std Deviation 58.8 H RDW Coeff of Krish 16.6 H Plt Count 166 MPV 10.0 Immature Gran % (Auto) 0.4 Neut % (Auto) 54.1 Lymph % (Auto) 31.0 [place] % (Auto) 9.1 Eos % (Auto) 4.6 Baso % (Auto) 0.8 Neut # (Auto) 2.68 Lymph # (Auto) 1.54 [place] # (Auto) 0.45 Eos # (Auto) 0.23 Baso # (Auto) 0.04 Immature Gran # (Auto) 0.02 Macrocytosis Present Ovalocytes 1+ Sodium 139 Potassium 4.3 Chloride 106 Carbon Dioxide 21 Anion Gap 12 H BUN 63 H Creatinine 9.99 H* D Est Cr Clr Drug Dosing 6.0 Est GFR ( Amer) 5.4 Est GFR (Non-Af Amer) 4.6 BUN/Creatinine Ratio 6.3 L Glucose 96 Calcium 9.3 Phosphorus 5.8 H Albumin 4.2 Diagnostic Findings Nuclear stress test - Conclusions: 1. No scintigraphic evidence of a prior myocardial infarction or stress-induced myocardial ischemia. 2. No Lexiscan-induced chest pain. 3. No EKG changes. 4. Normal left ventricular systolic function without wall motion abnormality. Left ventricular ejection fraction is 70%. PG Care Time/CCT Total # of Minutes Spent Total Time Spent with Patient: Total time spent is greater than 50% in coordination of care (as documented) at patient's floor/unit and/or counseling patient: Coding Level of Care Code 62210 SUB INP/OBS CARE 2/35MIN Diagnoses Chest pain R07.9 SARS-CoV-2 positive U07.1 Hypophosphatemia E83.39 ESRD needing dialysis N18.6; Z99.2 Anemia D64.9 HTN (hypertension) I10 Amyloidosis E85.9 Amyloidosis type: unspecified amyloidosis (7) Amyloidosis Amyloidosis type: unspecified amyloidosis Qualified Code(s): E85.9 - Amyloidosis, unspecified
[2022-11-12] MEDS: traZODone HCL 100 MG TAB PO SCH (20:46)
[2022-11-12] MEDS: TAMSULOSIN HCL 0.4 MG CAP PO SCH (20:46)
[2022-11-13 08:07] LABS: BUN Creatinine Ratio 5.6 (10-20); Calcium 8.9 mg/dl (8.6-10.3); Creatinine Clr Calc Pharmacy 10.2 ml/min; Est GFR (African American) 10.2 ml/min; Est GFR (Non-African American) 8.8 ml/min; Phosphorus 4.1 mg/dl (2.5-4.9); Potassium 4.3 mmol/L (3.5-5.1)
[2022-11-13] MEDS: DOXYCYCLINE HYCLATE 100 MG CAP PO SCH (08:30)
[2022-11-13] MEDS: ROSUVASTATIN CALCIUM 5 MG TAB PO SCH (08:30)
[2022-11-13] MEDS: FERROUS SULFATE 325 MG TAB PO SCH (08:30)
[2022-11-13] MEDS: ASPIRIN 81 MG ECTAB PO SCH (08:30)
[2022-11-13] MEDS: METOPROLOL SUCC 25MG EXT REL TAB PO SCH (08:30)
[2022-11-13] MEDS: allopurinoL 100 MG TAB PO SCH (08:30)
[2022-11-13] MEDS: amLODIPine BESYLATE 5 MG TAB PO SCH (08:31)
[2022-11-13] MEDS: FLUTICASONE FUROATE 100MCG 14 PUFFS/INHALER INH SCH (08:31)
[2022-11-13] MEDS: MONTELUKAST SODIUM 10 MG TABLET PO SCH (08:31)
[2022-11-13] MEDS: ACYCLOVIR 400 MG TAB PO SCH (08:31)
--- NOTE | 2022-11-13 13:58 | Discharge Summary ---
Date of Service November 13, 2022 Admission HPI Per Admitting Provider Solomon Mccoy is a 72 year old male with end stage renal disease on dialysis who presents to the ER with an episode of chest pain during dialysis. He was recently admitted for the same symptoms with an episode on November 04. He reports that episode was more intense than today. He was admitted from November 04 - 2022 due to possible NSTEMI - subsequent only mild troponin elevation and no wall motion abnormalities on TTE essentially ruled this out and he underwent subsequent dialysis in hospital without issue. Today about half way through dialysis the same thing occurred. He reported pain down both arms - left > right and across his chest. Lasted for 35-40 minutes and resolved with nitroglycerin given at the end of the procedure. Associated feeling warm, he was not diaphoretic like last time, mild short lived nausea which he cannot remember if this was shortly after or before the nitroglycerin. Unknown if exertional as occurred during dialysis. No association with food. No palpitation, claudication, orthopnea or PND. He is currently chest pain free. In the ER EKG was unremarkable compared to prior. Initial high sensitivity troponin I 19.3. He was referred to medicine for admission and ongoing manag ement of chest pain. Discharge Exam gen - currently getting dialyzed, NAD, lying comfortably flat in bed neck - no JVD mouth - MMM heart - RRR, s1 s2, 2/6 systolic murmur RUSB/LUSB lungs - CTA b/l abd - soft NT ND BS+ vascular - left arm fistula; radial pulses 2+ b/l; foot pulses 2+ b/l extremities - no edema psych - a/o x 3 chest - no reproducible chest wall pain to palpation Discharge Data Allergies Allergy/AdvReac Type Severity Reaction Status Date / Time clindamycin Allergy Severe Rash Verified 11/09/22 15:23 Sulfa (Sulfonamide Allergy Intermediate diarrhea, Verified 11/09/22 15:23 Antibiotics) rash cefprozil [From Cefzil] AdvReac Intermediate Diarrhea Verified 11/09/22 15:23 Consultations 11/09/22 15:14 ED Decision to Admit Stat 11/09/22 21:58 Consult Nephrology Routine 11/10/22 06:35 Consult Cardiology Routine 11/11/22 12:32 Radiology Transfer Of Images Routine 11/13/22 09:44 Burn CD for patient Routine Ordered Studies 11/09/22 12:56 CT chest diagnostic wo con Stat 11/09/22 17:16 US venous doppler UE LT Urgent Hospital Course (1) Chest pain: chest pain/bilateral arm pain/dyspnea - * no evidence of ACS * nuclear stress test negative today * recent noncontrast chest CT without acute findings (nodules are chronic) * no evidence of pericarditis or aortic dissection clinically I corresponded with cardiology regarding his symptoms & presentation - etiology of recent episodes of b/l arm pain & dyspnea uncertain. Related to fluid/blood shifts during HD sessions in the setting of chronic anemia? Other etiology? Pulmonary emboli? consider w/u for PE. recent LUE Doppler neg for DVT and fistula was patent on that study. symptoms not suggestive of GI tract etiology. (2) SARS-CoV-2 positive: false + repeat COVID PCR x 2 NEGATIVE airborne precautions d/c (3) Hypophosphatemia: phos levels relatively acceptable at this time holding his sevelamer at this time per nephrology (4) ESRD needing dialysis: typical schedule //Fri appreciate [facility] Nephrology assistance (5) Anemia: Hb <8 today s/p Epogen therapy recent Fe studies with adequate stores recent b12/folate wnl would Tx of 1 unit of PRBCs help #1 above?? 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 Plan updated at bedside observe overnight for recurrent symptoms Discharge Plan Discharge Items Patient Disposition: Home - Self-Care Reason For Visit: CHEST PAIN Discharge Diagnosis: Chest pain, heart attack ruled out; negative nuclear stress test Activity: As commented below Activity Comment: light activities only until seen by Dr Flores Non-emergency contact: Primary Care Provider, Esol Teacher and Currency Machine Operator Call non-emergency contact if: you have any medication questions, your symptoms worsen, your pain is not controlled, your pain is worsening, your pain is unusual for you and your pain is concerning for you Follow-up/Referrals: Susan Marcus MD [Physician] - (please report for your usual dialysis on , 11/14) Rudy Royal [Primary Care Provider] - Jonnathan Flores DO [Physician] - 11/29/22 Diet: Dialysis Renal Fluids: 1500ml (6 cups) Addtl Attending Provider Instructions: Mr Mccoy, Anirudh were admitted to the hospital for chest pain. Blood work did not show evidence of heart attack. A respiratory panel for viral infections including COVID and influenza was negative. CT scan of the chest did not show pneumonia; it did show numerous nodules throughout both lungs which have been seen in the past. Dr Flores from [facility] cardiology saw you in consult. Nuclear stress test was recommended. This returned normal/negative. This test suggests that your symptoms are likely not coming from blocked arteries in your heart. The test is about 85% accurate. It is believed that your symptoms may be coming from recently improved blood flow through your left arm fistula as well as your anemia. Both of these things could be causing stress on the heart leading to your symptoms. Despite the negative stress test, and despite your symptoms being improved, we will have a low threshold for additional testing (such as a heart catheterization) if your symptoms continue. Dr Flores would coordinate such through his office if this is ever felt to be necessary. We have made no changes in any of your usual medications at this time. Follow-up - see separate section. In addition, please be sure to follow-up with your lung doctor at [facility] due to the nodules seen on CT scan. Be sure to bring the CD with you to that next appointment. Return to [facility] if - * you develop fevers over 100 degrees * you have recurrent chest pain episodes, whether at rest or with activity * you have recurrent episodes of shortness of breath * you have recurrent episodes of arm pain * any other concerns It was our pleasure to care for you! Dr Camara Pending Studies at Discharge: No Stand-Alone Forms: My [facility], Smoking Cessation Medications and DC Order Prescriptions: Continued sevelamer carbonate 800 mg tablet 800 mg PO TID Qty: 270 3RF doxycycline monohydrate 100 mg capsule 100 mg PO BID montelukast [Singulair] 10 mg tablet 10 mg PO DAILY tamsulosin 0.4 mg Capsule 0.4 mg PO QPM amlodipine 10 mg tablet 10 mg PO DAILY cyanocobalamin (vitamin B-12) 1,000 mcg/mL Solution 1,000 mcg IM MONTHLY fluticasone propionate [Flovent HFA] 110 mcg/actuation HFA aerosol inhaler 1 puff INHALATION QAM trazodone 50 mg tablet 100 mg PO HS furosemide 20 mg tablet 20 mg PO DAILY PRN (Reason: Fluid Retention) allopurinol 100 mg tablet 100 mg PO DAILY insulin aspart U-100 [Novolog FlexPen U-100 Insulin] 100 unit/mL (3 mL) insulin pen 0 unit SUBCUT UD Rx Instructions: per sliding scale aspirin 81 mg Tablet,Delayed Release (Dr/Ec) 81 mg PO QAM Qty: 0 0RF metoprolol succinate 25 mg Tablet Extended Release 24 Hr 12.5 mg PO QAM Qty: 30 0RF rosuvastatin [Crestor] 5 mg tablet 5 mg PO DAILY Qty: 30 0RF acyclovir 400 mg Tablet 400 mg PO DAILY Discharge Orders: Discharge Order (Routine); Ordered 11/13/22 Ordered By: Maged Camara Admission Data Admit Date/Time: 11/11/22 12:30 Attending Provider: Maged Camara Admit Provider: Maged Avelar Primary Care Provider: Rudy Royal Other Providers: Maged Avelar ; Susan Marcus Jeffrey G. Coding Diagnoses Chest pain R07.9 SARS-CoV-2 positive U07.1 Hypophosphatemia E83.39 ESRD needing dialysis N18.6; Z99.2 Anemia D64.9 HTN (hypertension) I10 Amyloidosis E85.9 Amyloidosis type: unspecified amyloidosis
== END 2022-11-13 14:32 | disposition home or self-care (01) | DRG 313 ==
LOC: ED 11:32 → 2S 11:32 → SUATTDRO 16:11 → 2S 19:44 → SUATTDRO 11-11 12:30

== ENCOUNTER 2023-06-03 11:25 | Observation (INO) ==
--- NOTE | 2023-06-03 11:38 | Emergency Department Note ---
Impression & Plan Shortness of breath, Chest pain ED Provider Note NAME: PAUL LOOMIS AGE: 73 SEX: M : 1950 ARRIVES VIA: Ambulance INFORMANT: Patient ED PROVIDER(S): Yousif Rodriguez DO CHIEF COMPLAINT: shortness of breath HPI: Patient is a 73-year-old male with a past medical history of pericardial effusion, hypertension, anemia, end-stage renal disease on dialysis who presents to the ER for shortness of breath. He notes he was getting dialysis was 2 hours and became significantly short of breath and had a weird feeling in his chest. This resolved with nitro and morphine was brought in by EMS. He denies any belly pain, nausea, vomiting, or diarrhea. No dysuria, urgency, or frequency. No other exacerbating or remitting factors. Additional history was obtained by EMS in regards to 2 mg of morphine given IV for chest pain. ADDITIONAL HISTORY OBTAINED: Per HPI Chronic Medical/Social Conditions Affecting Care: Per HPI PAST MEDICAL HISTORY:See Below PAST SURGICAL HISTORY:See Below FAMILY HISTORY:See Below SOCIAL HISTORY:See Below HOME MEDICATIONS:See Below ALLERGIES:See Below VITALS:See Below PHYSICAL EXAMINATION: GENERAL: Sitting up in bed, alert, well appearing, well nourished, no distress, non-toxic EYE EXAM: normal conjunctiva. OROPHARYNX: no exudate, no erythema, lips, buccal mucosa, and tongue normal and mucous membranes are moist NECK: supple, no nuchal rigidity, no adenopathy, non-tender LUNGS: Clear to auscultation. Normal chest wall mechanics HEART: no murmurs, S1 normal and S2 normal ABDOMEN: abdomen soft, non-tender, normo-active bowel sounds, no masses, no rebound or guarding. UPPER EXTREMITIES: upper extremities are grossly normal. Fistula located in left upper extremity. Positive thrill and bruit. LOWER EXTREMITIES: No pitting edema. NEURO EXAM: Normal sensorium, cranial nerves II-XII grossly intact, normal s peech, no gross weakness of arms, no gross weakness of legs. MEDICAL DECISION MAKING: Patient is a 73-year-old male who presents ER for above-stated complaint. IV was established blood work was obtained. External records reviewed as described below. Labs show no significant leukocytosis. Mild anemia at 8.8. BMP with mild hypokalemia 3.4. Creatinine 5. Bilirubin LFTs unremarkable. Troponin was negative. Lipase was slightly up at 250. No abdominal pain. Patient was updated bedside. EKG was fairly unremarkable. Chest x-ray was nondiagnostic. Discussed case with the hospitalist for further evaluation. Patient was given aspirin nitro prior to arrival. External Records Reviewed: PD catheter removed by general surgery. Consults/Care Managements Discussions: Per MDM Triage Nursing notes reviewed. Limited review of prior medical records performed Vital Signs: reviewed and remarkable for no significant abnormalities Differential diagnosis: Differential diagnoses includes but is not limited to pneumonia, bronchitis, COPD/Asthma exacerbation, pneumothorax, pulmonary embolism, congestive heart failure, acute coronary syndrome ER treatment provided: See below Diagnostics interpreted by me include EKG and cardiac monitoring as listed below: -Cardiac Monitoring: An order was placed for continuous cardiac monitoring. The monitor shows a rate of 110 with sinus rhythm. -ECG: Sinus tachycardia rate of 119 Left axis No PVCs QTc 517 -Laboratory studies:Interpreted by me as stated above in MDM and shown below. Imaging studies: Xrays: As interpreted by me: Portable AP upright 1 view of the chest shows no focal infiltrate CTs show: none Procedures:none Critical Care: None Past Med/Surg History Medical History (Updated 06/03/23 @ 16:24 by Yousif Rodriguez DO) Amyloidosis Hx of - cardiac and renal amyloid- dx'ed 2018- s/p chemo/stem cell transplant- amyloidosis diagnosed during work up for CKD - On Doxy and acyclovir Anemia Anemia in chronic kidney disease (CKD) Aortic stenosis Moderate aortic valve stenosis per 11/06/2022 echo. WILBERTO 1.0 cm by continuity equation; mean gradient 20.8 mmHg; V-max 3.274 m/s Chronic diastolic (congestive) heart failure Epididymal cyst ESRD (end stage renal disease) Hemodiaylsis on ,,Friday at [facility] in [place] History of COVID-19 10/2022 - treated with paxlovid - no hospitalization Hypertension Multiple myeloma hx -- currently in remission- s/p stem cell transplant Open wound of left thumb Osteoarthritis of knee Pericardial effusion Chronic/small per cardio records Peritoneal dialysis catheter dysfunction reason for removal PFO (patent foramen ovale) PFO with small [id number] shunt per 03/2023 ECHO per 03/2023 cardio note Pulmonary hypertension PASP 49mmHg per 03/2023 per 04/07/23 cardio note Secondary hyperparathyroidism of renal origin Testicular mass Type 2 diabetes mellitus diet controlled Surgical History (Updated 05/14/23 @ 09:10 by Jam Eldridge DO) H/O stem cell transplant History of back surgery L4/L5 fusion History of surgery (05/01/23) Removal of Peritoneal Dialysis Catheter(Not Applicable) - Jam Eldridge DO S/P arteriovenous (AV) fistula creation Left arm Total knee replacement status RIGHT/LEFT Family History Father Family history of diabetes mellitus Other No family history of adverse response to anesthesia Social History (Updated 04/29/23 @ 10:30 by Aparna Guillory RN) Smoking Status: Never smoker Tobacco Type: Cigarettes Age Started Using Tobacco: 25; Age Quit Using Tobacco: 40; Second Hand Exposure: No; Do You Dip or Chew Tobacco: No; Hx Alcohol Use: No Hx Substance Use: No Preferred Language: Tanzanian Communication Ability: Effective Visual Impairment: No Limitations Breakfast Supervisor Required: No Beliefs That Will Affect Care: None marital status: Current Living Situation: Spouse current occupational status: retired How many Children do You have: 3 Feels Safe at Home: Yes Diet: regular during the past year weight has: remained stable Allergies Allergies Allergy/AdvReac Type Severity Reaction Status Date / Time bortezomib [From Velcade] Allergy Severe pneumonia Verified 05/14/23 08:52 clindamycin Allergy Severe Rash Verified 05/14/23 08:52 Sulfa (Sulfonamide Allergy Intermediate diarrhea, Verified 05/14/23 08:52 Antibiotics) rash cefprozil [From Cefzil] AdvReac Intermediate Diarrhea Verified 05/14/23 08:52 Home Meds Home Medications Medication Instructions Recorded Confirmed tamsulosin 0.4 mg capsule (Flomax) 0.4 mg PO QPM 12/17/18 06/03/23 doxycycline monohydrate 100 mg 100 mg PO QAM 05/10/19 06/03/23 capsule amlodipine 10 mg tablet 10 mg PO QAM 12/29/20 06/03/23 trazodone 50 mg tablet 100 mg PO HS 01/13/21 06/03/23 acyclovir 400 mg tablet 400 mg PO HS 11/04/22 06/03/23 allopurinol 100 mg tablet 100 mg PO QAM 04/29/23 06/03/23 rosuvastatin 5 mg tablet (Crestor) 5 mg PO HS 04/29/23 06/03/23 sevelamer carbonate 800 mg tablet 3,200 mg PO BID 04/29/23 06/03/23 (Renvela) lansoprazole 30 mg capsule,delayed 30 mg PO DAILY 06/03/23 06/03/23 release (Prevacid) Previous Rx's Medication Instructions Recorded metoprolol succinate 25 mg 12.5 mg PO QAM #45 tabs 01/02/23 tablet,extended release 24 hr Results & Data (ED) Vital Signs Vital Signs - 24 hr 06/03/23 11:32 06/03/23 11:52 06/03/23 13:00 Temperature 36.8 C Temperature Source Oral Pulse Rate 108 H 89 Pulse Rate [Left Finger] 79 Respiratory Rate 20 20 Respiratory Effort / Characteristics Non-Labored Spontaneous Respiratory Depth Normal Respiratory Pattern Regular Blood Pressure 108/62 Blood Pressure [Left Arm] 111/60 Blood Pressure Mean 77 Blood Pressure Mean [Left Arm] 77 Blood Pressure Position Sitting Blood Pressure Position [Left Arm] Sitting Pulse Oximetry 98 93 Oxygen Delivery Method Room Air Sepsis Recent Fever Within 48 Hours No Sepsis New/Unexplained Change in Mental Status No Sepsis Action Taken by Nursing No Action Required 06/03/23 15:00 Temperature Temperature Source Pulse Rate Pulse Rate [Left Finger] 75 Respiratory Rate 20 Respiratory Effort / Characteristics Respiratory Depth Respiratory Pattern Blood Pressure Blood Pressure [Left Arm] 125/72 Blood Pressure Mean Blood Pressure Mean [Left Arm] 89 Blood Pressure Position Blood Pressure Position [Left Arm] Pulse Oximetry 94 Oxygen Delivery Method Sepsis Recent Fever Within 48 Hours Sepsis New/Unexplained Change in Mental Status Sepsis Action Taken by Nursing Laboratory Data 06/03/23 11:35 06/03/23 11:35 Lab Results 06/03/23 06/03/23 Range/Units 11:35 11:35 WBC 7.48 (4.8-10.8) K/ul RBC 2.61 L (4.70-6.10) M/uL Hgb 8.8 L (14.0-18.0) g/dl Hct 24.8 L (42.0-52.0) % MCV 95.0 (80.0-100.0) fL MCH 33.7 (25.0-34.0) pg MCHC 35.5 (32.0-36.0) g/dL RDW Std Deviation 45.2 (36.4-46.3) fL RDW Coeff of Krish 13.3 (11.5-14.5) % Plt Count 160 (130-400) K/uL MPV 10.4 (9.4-12.4) fL Immature Gran % (Auto) 0.3 % Neut % (Auto) 49.1 % Lymph % (Auto) 38.9 % Sabine % (Auto) 8.0 % Eos % (Auto) 3.2 % Baso % (Auto) 0.5 % Neut # (Auto) 3.67 (1.40-6.50) K/uL Lymph # (Auto) 2.91 (1.20-3.40) K/uL Sabine # (Auto) 0.60 H (0.11-0.59) K/uL Eos # (Auto) 0.24 (0.00-0.50) K/uL Baso # (Auto) 0.04 (0.00-0.20) K/uL Immature Gran # (Auto) 0.02 (0.01-0.20) K/uL Sodium 140 (136-145) mmol/L Potassium 3.4 L (3.5-5.1) mmol/L Chloride 96 L (98-107) mmol/L Carbon Dioxide 25 (21-32) mmol/L Anion Gap 19 H (3-11) BUN 33 H (6-23) mg/dl Creatinine 5.07 H* (0.6-1.4) mg/dl Est Cr Clr Drug Dosing 12.3 ml/min Est GFR ( Amer) 12.1 ml/min Est GFR (Non-Af Amer) 10.4 ml/min BUN/Creatinine Ratio 6.5 L (10-20) Glucose 185 H (70-99(Fasting)) mg/dl Calcium 8.6 (8.6-10.3) mg/dl Total Bilirubin 0.5 (0.2-1.0) mg/dl AST 16 (13-39) U/L ALT 9 (7-52) U/L Alkaline Phosphatase 77 (34-104) U/L Troponin I High Sens 13.8 (0-20) pg/ml Total Protein 6.6 (6.0-8.3) gm/dl Albumin 4.4 (3.4-5.0) gm/dl Globulin 2.2 L (2.5-4.0) gm/dl Albumin/Globulin Ratio 2.0 (0.9-2) Lipase 246 H (11-82) U/L Imaging Data Radiologist's Impression: Chest X-Ray 06/03/23 11:35 XR chest 1V portable CLINICAL HISTORY: Chest pain, nonspecific TECHNIQUE: Single frontal radiograph of the chest was obtained. Comparison: Comparison is made to chest radiograph 11/09/2022 FINDINGS: No lines and tubes are seen. Cardiomegaly is noted. Trace atelectasis at the left lung base. No evidence of pleural effusion or pneumothorax. IMPRESSION: No acute chest disease. Cardiomegaly is noted. ACT 112: Negative or not required by law. Electronically signed by: Christiano Capellan M.D. 06/03/2023 12:36 PM Discharge Plan Visit Data Chief Complaint: Chest Pain ED Provider: Yousif Rodriguez Discharge Problem: Shortness of breath, Chest pain Forms Stand Alone Forms: [facility] Prescriptions Prescriptions: No Action metoprolol succinate 25 mg tablet extended release 24 hr 12.5 mg PO QAM Qty: 45 3RF Rx Instructions: take 1/2 tablet once daily. doxycycline monohydrate 100 mg capsule 100 mg PO QAM sevelamer carbonate [Renvela] 800 mg tablet 3,200 mg PO BID tamsulosin [Flomax] 0.4 mg Capsule 0.4 mg PO QPM amlodipine 10 mg tablet 10 mg PO QAM trazodone 50 mg tablet 100 mg PO HS allopurinol 100 mg tablet 100 mg PO QAM rosuvastatin [Crestor] 5 mg tablet 5 mg PO HS lansoprazole [Prevacid] 30 mg capsule,delayed release(DR/EC) 30 mg PO DAILY acyclovir 400 mg Tablet 400 mg PO HS Referrals Referrals: Rudy Royal [Primary Care Provider] -
[2023-06-03 12:17] LABS: Basophils # (auto) 0.04 K/uL (0.00-0.20); Basophils % (auto) 0.5 %; Eosinophils # (auto) 0.24 K/uL (0.00-0.50); Eosinophils % (auto) 3.2 %; Hematocrit (blood only) 24.8 % (42.0-52.0); Hemoglobin 8.8 g/dl (14.0-18.0); Immature Granulocytes # (auto) 0.02 K/uL (0.01-0.20); Immature Granulocytes % (auto) 0.3 %; Lymphocytes # (auto) 2.91 K/uL (1.20-3.40); Lymphocytes % (auto) 38.9 %; Mean Corpuscular Hemoglobin 33.7 pg (25.0-34.0); Mean Corpuscular Hgb Conc 35.5 g/dL (32.0-36.0); Mean Platelet Volume 10.4 fL (9.4-12.4); Neutrophils # (auto) 3.67 K/uL (1.40-6.50); Neutrophils % (auto) 49.1 %; Platelet Count 160 K/uL (130-400); RDW Coefficient of Variation 13.3 % (11.5-14.5); RDW Standard Deviation 45.2 fL (36.4-46.3); Red Blood Count 2.61 M/uL (4.70-6.10); White Blood Count 7.48 K/ul (4.8-10.8)
[2023-06-03 12:31] LABS: Albumin Level 4.4 gm/dl (3.4-5.0); BUN Creatinine Ratio 6.5 (10-20); Bilirubin,Total 0.5 mg/dl (0.2-1.0); Calcium 8.6 mg/dl (8.6-10.3); Creatinine Clr Calc Pharmacy 12.3 ml/min; Est GFR (African American) 12.1 ml/min; Est GFR (Non-African American) 10.4 ml/min; Globulin 2.2 gm/dl (2.5-4.0); Potassium 3.4 mmol/L (3.5-5.1); Total Protein 6.6 gm/dl (6.0-8.3)
--- NOTE | 2023-06-03 12:38 | XRay Report ---
XR chest 1V portable CLINICAL HISTORY: Chest pain, nonspecific TECHNIQUE: Single frontal radiograph of the chest was obtained. Comparison: Comparison is made to chest radiograph 11/09/2022 FINDINGS: No lines and tubes are seen. Cardiomegaly is noted. Trace atelectasis at the left lung base. No evide nce of pleural effusion or pneumothorax. IMPRESSION: No acute chest disease. Cardiomegaly is noted. ACT 112: Negative or not required by law. Electronically signed by: Christiano Capellan M.D. 06/03/2023 12:36 PM
[2023-06-03 13:39] LABS: Troponin I High Sensitivity 13.8 pg/ml (0-20)
--- NOTE | 2023-06-03 14:16 | History & Physical Report ---
Date of Service June 03, 2023 Assessment & Plan (1) Atypical chest pain: Plan: Chest Discomfort - Occurred during dialysis with some shortness of breath, patient denies pain but notes a feeling/discomfort - Total episode lasted ~45 minutes, improved with nitro/morphine - No acute ischemic changes on EKG, initial troponin is negative Limited echo for wall motion change pending, 2-hour troponin pending Patient admitted for cardiac observation and evaluation (2) Amyloidosis: Plan: Amyloidosis, w/ cardiac & renal involvement Echo 03/2023 with EF 55% and no LVH, type II diastolic dysfunction. Patient had a normal nuclear stress test 10/2022 History of small pericardial effusion, limited echo pending as noted Continue doxycycline and acyclovir prophylaxis S/p stem cell transplant, no longer on chemotherapy (3) Chronic kidney disease, stage V: Plan: ESRD HD With history of renal amyloidosis and HD dependence. Typically receives dialysis Friday/Friday. Nephrology consulted for assistance while admitted - 2 hour session day of admit Potassium 3.4, patient is not hypoxic, no need for continued or emergent dialysis Phosphorus level ordered Patient notes that dialysis is very burdensome to him, and has had multiple episodes of discomfort during dialysis the past. Patient would like to know if there were any changes that could be made to his dialysis regimen to make this more comfortable, as his episodes of discomfort which are not "pain "but are not difficulty with reasoning and discomfort during dialysis, and feels very tired and washed out after nephrology consulted, patient is pursuing a kidney transplant as a long-term option after his amyloid was treated with stem cell transplan and and is aware that dialysis is a measure to keep him alive, but is very burdensome on the body and may have some level of discomfort that cannot be completely improved. (4) Anemia: Plan: Anemia of chronic disease Hemoglobin on admission 8 point, baseline 78.5 Trend daily, no acute indication for transfusion (5) ESRD on hemodialysis: (6) HTN (hypertension): Plan: Continue metoprolol, amlodipine (7) Hyperlipidemia: (8) Pericardial effusion: Plan: Repeat echo pending Plan DVT prophylaxis: Heparin Diet: Renal Disposition: PCU CODE STATUS: Full code History of Present Illness Primary Care Provider: Rudy Carbajal is a 73-year-old male with a past medical history of hypertension, anemia, CKD, pericardial effusion, ESRD on dialysis who was at his usual dialysis session when he developed shortness of breath and chest discomfort. He was given morphine and nitro which resolved the discomfort and he was brought to the ER for further evaluation. On ER work-up potassium is 3.4, high-sensitivity tr oponin is normal, EKG is sinus tachycardia with PACs, QTc [address] segment changes Solomon reports he was at dialysis whne he suddenly developed a funny feeling/discomfort in his chest and which radiated into both arms. Some lightheadedness, no sycnope/presyncope. Did have associated shortness of breath, has also taken Dextromethorpan fo ra mild cough/cold. Had some sinus congestion for 1 week. No fevers/chills/sweats. Outpatient COVID was negative. Took a dose of Mucinex DM and 'knocked me out for three days and Missed last dialysis'. Had dialysis Friday which he tolerated OK but was much more fatigued afterwards, and then today had eepisode of SOB and CP. No abdomianl pain, diarrhea, constipation. No dysuria. Pt does still make a lot of urine. L AV fistula with good thrill. No erythema/warmth/tenderness. Medical History: Reviewed Medications: Reviewed Surgical History: Reviewed Family history: Reviewed Allergies: Reviewed Social History: Reviewed Code Status: Full Allergies Allergy/AdvReac Type Severity Reaction Status Date / Time bortezomib [From Velcade] Allergy Severe pneumonia Verified 05/14/23 08:52 clindamycin Allergy Severe Rash Verified 05/14/23 08:52 Sulfa (Sulfonamide Allergy Intermediate diarrhea, Verified 05/14/23 08:52 Antibiotics) rash cefprozil [From Cefzil] AdvReac Intermediate Diarrhea Verified 05/14/23 08:52 Home Medications Medication Instructions Recorded Confirmed Type tamsulosin 0.4 mg capsule (Flomax) 0.4 mg PO QPM 12/17/18 05/01/23 History doxycycline monohydrate 100 mg 100 mg PO QAM 05/10/19 05/01/23 History capsule amlodipine 10 mg tablet 10 mg PO QAM 12/29/20 05/01/23 History trazodone 50 mg tablet 100 mg PO HS 01/13/21 05/01/23 History acyclovir 400 mg tablet 400 mg PO HS 11/04/22 04/29/23 History metoprolol succinate 25 mg 12.5 mg PO QAM #45 tabs 01/02/23 05/01/23 Rx tablet,extended release 24 hr allopurinol 100 mg tablet 100 mg PO QAM 04/29/23 05/01/23 History rosuvastatin 5 mg tablet (Crestor) 5 mg PO HS 04/29/23 05/01/23 History sevelamer carbonate 800 mg tablet 3,200 mg PO BID 04/29/23 05/01/23 History (Renvela) Past Med/Surg History Medical History (Updated 05/14/23 @ 08:55 by Aparna Guillory RN) Amyloidosis Hx of - cardiac and renal amyloid- dx'ed 2018- s/p chemo/stem cell transplant- amyloidosis diagnosed during work up for CKD - On Doxy and acyclovir Anemia Anemia in chronic kidney disease (CKD) Aortic stenosis Moderate aortic valve stenosis per 11/06/2022 echo. WILBERTO 1.0 cm by continuity equation; mean gradient 20.8 mmHg; V-max 3.274 m/s Chronic diastolic (congestive) heart failure Epididymal cyst ESRD (end stage renal disease) Hemodiaylsis on ,,Friday at [facility] in [place] History of COVID-19 10/2022 - treated with paxlovid - no hospitalization Hypertension Multiple myeloma hx -- currently in remission- s/p stem cell transplant Open wound of left thumb Osteoarthritis of knee Pericardial effusion Chronic/small per cardio records Peritoneal dialysis catheter dysfunction reason for removal PFO (patent foramen ovale) PFO with small [id number] shunt per 03/2023 ECHO per 03/2023 cardio note Pulmonary hypertension PASP 49mmHg per 03/2023 per 04/07/23 cardio note Secondary hyperparathyroidism of renal origin Testicular mass Type 2 diabetes mellitus diet controlled Surgical History (Updated 05/14/23 @ 09:10 by Jam Eldridge DO) H/O stem cell transplant History of back surgery L4/L5 fusion History of surgery (05/01/23) Removal of Peritoneal Dialysis Catheter(Not Applicable) - Jam Eldridge DO S/P arteriovenous (AV) fistula creation Left arm Total knee replacement status RIGHT/LEFT Family History Father Family history of diabetes mellitus Other No family history of adverse response to anesthesia Social History (Updated 04/29/23 @ 10:30 by Aparna Guillory RN) Smoking Status: Never smoker Tobacco Type: Cigarettes Age Started Using Tobacco: 25; Age Quit Using Tobacco: 40; Second Hand Exposure: No; Do You Dip or Chew Tobacco: No; Hx Alcohol Use: No Hx Substance Use: No Preferred Language: Wolof Communication Ability: Effective Visual Impairment: No Limitations Supervisor Show Operations Required: No Beliefs That Will Affect Care: None marital status: Current Living Situation: Spouse current occupational status: retired How many Children do You have: 3 Feels Safe at Home: Yes Diet: regular during the past year weight has: remained stable Physical Exam Physical Exam: General: A&Ox3. NAD. Cooperative. HEENT: Atraumatic, normocephalic. PERLAA. EoM intact. Vision/hearing intact Pulm: CTAB A&P. -wheezes, -rales, -rhonchi. Symmetrical chest rise. No increased work of breathing. No respiratory distress. Cardiac: RRR, -mrg. Radial pulses intact and symmetrical. Abdominal: Nontender, nondistended, soft. BS present. Extremities: Left AV fistula with good thrill, no warmth/tenderness/erythema. Extremities: No pitting edema Results & Data Results & Data Vital Signs (Past 12 Hours) Vital Signs Temp Pulse Pulse Resp BP BP Pulse Ox 06/03/23 13:00 79 20 111/60 93 06/03/23 11:52 89 06/03/23 11:32 36.8 C 108 H 20 108/62 98 O2 Del Method 06/03/23 13:00 06/03/23 11:52 06/03/23 11:32 Room Air PG Care Time/CCT Total # of Minutes Spent Total Time Spent with Patient: Total time spent is greater than 50% in coordination of care (as documented) at patient's floor/unit and/or counseling patient: Coding Level of Care Code 99820 INT INP/OBS CARE 3/75MIN Diagnoses Atypical chest pain R07.89 Amyloidosis E85.9 Amyloidosis type: unspecified amyloidosis Chronic kidney disease, stage V N18.5 Anemia D64.9 ESRD on hemodialysis N18.6; Z99.2 HTN (hypertension) I10 Hyperlipidemia E78.5 Pericardial effusion I31.39 (2) Amyloidosis Amyloidosis type: unspecified amyloidosis Qualified Code(s): E85.9 - Amyloidosis, unspecified
--- NOTE | 2023-06-03 14:35 | Electrocardiogram Report ---
Test Reason : Blood Pressure : / mmHG Vent. Rate : 119 BPM Atrial Rate : 119 BPM P-R Int : 136 ms QRS Dur : 100 ms QT Int : 368 ms P-R-T Axes : 008 -45 084 degrees QTc Int : 517 ms Sinus tachycardia with Premature atrial complexes Low voltage QRS Left anterior fascicular block Abnormal ECG When compared with ECG of 09-NOV-2022 11:50, Premature atrial complexes are now Present Confirmed by Brannon Soriano ([id number]) on 06/03/2023 2:34:55 PM Referred By: REFERRED SELF Confirmed By:Brannon Soriano
[2023-06-03] MEDS ORDERED: ACETAMINOPHEN 325 MG TAB PO PRN (17:05)
[2023-06-03 18:35] LABS: Lyme Ab IgG w/WB Rflx Negative (Negative); Lyme Ab IgM w/WB Rflx Negative (Negative)
[2023-06-03] MEDS ORDERED: traZODone HCL 100 MG TAB PO SCH (21:00)
[2023-06-03] MEDS ORDERED: ROSUVASTATIN CALCIUM 5 MG TAB PO SCH (21:00)
[2023-06-03] MEDS ORDERED: ACYCLOVIR 400 MG TAB PO SCH (21:00)
[2023-06-03] MEDS ORDERED: TAMSULOSIN HCL 0.4 MG CAP PO SCH (21:00)
[2023-06-04 02:54] LABS: Basophils # (auto) 0.02 K/uL (0.00-0.20); Basophils % (auto) 0.4 %; Hematocrit (blood only) 23.8 % (42.0-52.0); Hemoglobin 8.2 g/dl (14.0-18.0); Immature Granulocytes # (auto) 0.01 K/uL (0.01-0.20); Immature Granulocytes % (auto) 0.2 %; Lymphocytes # (auto) 1.31 K/uL (1.20-3.40); Lymphocytes % (auto) 26.3 %; Mean Corpuscular Hemoglobin 34.2 pg (25.0-34.0); Mean Corpuscular Hgb Conc 34.5 g/dL (32.0-36.0); Mean Corpuscular Volume 99.2 fL (80.0-100.0); Mean Platelet Volume 10.1 fL (9.4-12.4); Monocytes # (auto) 0.47 K/uL (0.11-0.59); Monocytes % (auto) 9.4 %; Neutrophils # (auto) 2.97 K/uL (1.40-6.50); Neutrophils % (auto) 59.7 %; Platelet Count 135 K/uL (130-400); RDW Coefficient of Variation 13.6 % (11.5-14.5); White Blood Count 4.98 K/ul (4.8-10.8)
[2023-06-04 03:01] LABS: BUN Creatinine Ratio 6.4 (10-20); Calcium 8.4 mg/dl (8.6-10.3); Creatinine Clr Calc Pharmacy 9.3 ml/min; Est GFR (African American) 8.6 ml/min; Est GFR (Non-African American) 7.5 ml/min; Magnesium 2.2 mg/dl (1.7-2.4); Phosphorus 4.6 mg/dl (2.5-4.9)
[2023-06-04] MEDS ORDERED: METOPROLOL SUCC 25MG EXT REL TAB PO SCH (09:00)
[2023-06-04] MEDS ORDERED: amLODIPine BESYLATE 5 MG TAB PO SCH (09:00)
[2023-06-04] MEDS ORDERED: DOXYCYCLINE HYCLATE 100 MG CAP PO SCH (09:00)
--- NOTE | 2023-06-04 09:17 | Nephrology Consultation ---
Date of Consultation June 04, 2023 Assessment & Plan (1) End stage renal disease: (2) Atypical chest pain: Plan Mr. Mccoy was evaluated in the EMD. Treatment records from [facility] were reviewed w/ Kristin Hendricks RN. Patient has been hemodynamically stable throughout his treatments. IDWG has only been up to 0.5 kg. Patient does attain his EDW at the end of treatments. There have been no other complications with other patients at the dialysis unit. Mr. Mccoy is dialyzing using a polysulfone dialyze that is e-beam sterilized. The tubing and dialyzer are flushed w/ 300 cc saline prior to each treatment. I have advised staffing manager to increase the flush volume to 600 cc to ensure that patient is not having a type B dialyzer reaction. Troponin is mildly elevated. Primary service has ordered consultation w/ Cardiology and a repeat echocardiogram. Will await those results. Currently Mr. Mccoy appears euvolemic. His electrolyte balance is acceptable. There is no acute indication for HD today. Will plan next dialysis for am. Finally it was noted that patient is mildly anemic. Will order iron studies w/ next lab draw. History of Present Illness Reason for Consultation: ESKD on IHD Attending Physician: Pineda Mcdowell MD History of Present Illness Mr. Mccoy is a 73 year old male who is seen at the request of the hospitalist service to provide HD and assist w/ medical management. Information for the HPI is obtained from patient interview and review of EMR. 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 He underwent autologous stem cell transplantation 04/05 and has been in remission. His medical history is also significant for HTN and anemia. Mr. Mccoy dialyzes TTS at [facility] under the care of Dr. Marcus (HD Rx: 3hr 45min, F-160NR, Qb300/Qd500, 2K 2Ca 1Mg HCO3 38, EDW 73.5). Review of [facility] EMR shows that Mr. Mccoy has been hemodynamically stable throughout his dialysis treatments. His IDWG has only been on the order of 0.5 kg. He attains his EDW by the end of treatments. Over the last 3 treatments Mr. Mccoy reports that he has developed chest tightness mid treatment. Yesterday this occurred after 2 hours and he requested to be transferred to the EMD for evaluation. EMD evaluation has revealed that the patient is afebrile, SBP 99-116 mm Hg, WBC 4.98, Hgb 8.8, Troponin has risen from 59 to 111, ECG - NSR without ischemic change. Mr. Mccoy reports that he is currently breathing comfortably on RA. His chest discomfort has resolved. Mr. Mccoy notes that he is undergoing transplant evaluation at [facility]. 04/09 Echocardiogram revealed LVEF 55% w/ no RWMA, ASD w/ L to R shunt, severly dilated L atrium and a dilated aortic arch (3.8 cm). He has recently been on PD but transitioned back to IHD due to PD catheter related pain. Allergies Allergy/AdvReac Type Severity Reaction Status Date / Time bortezomib [From Velcade] Allergy Severe pneumonia Verified 05/14/23 08:52 clindamycin Allergy Severe Rash Verified 05/14/23 08:52 Sulfa (Sulfonamide Allergy Intermediate diarrhea, Verified 05/14/23 08:52 Antibiotics) rash cefprozil [From Cefzil] AdvReac Intermediate Diarrhea Verified 05/14/23 08:52 Home Medications Medication Instructions Recorded Confirmed Type tamsulosin 0.4 mg capsule (Flomax) 0.4 mg PO QPM 12/17/18 06/03/23 History doxycycline monohydrate 100 mg 100 mg PO QAM 05/10/19 06/03/23 History capsule amlodipine 10 mg tablet 10 mg PO QAM 12/29/20 06/03/23 History trazodone 50 mg tablet 100 mg PO HS 01/13/21 06/03/23 History acyclovir 400 mg tablet 400 mg PO HS 11/04/22 06/03/23 History metoprolol succinate 25 mg 12.5 mg PO QAM #45 tabs 01/02/23 06/03/23 Rx tablet,extended release 24 hr allopurinol 100 mg tablet 100 mg PO QAM 04/29/23 06/03/23 History rosuvastatin 5 mg tablet (Crestor) 5 mg PO HS 04/29/23 06/03/23 History sevelamer carbonate 800 mg tablet 3,200 mg PO BID 04/29/23 06/03/23 History (Renvela) lansoprazole 30 mg capsule,delayed 30 mg PO DAILY 06/03/23 06/03/23 History release (Prevacid) Patient History Medical History Amyloidosis Hx of - cardiac and renal amyloid- dx'ed 2018- s/p chemo/stem cell transplant- amyloidosis diagnosed during work up for CKD - On Doxy and acyclovir Anemia Anemia in chronic kidney disease (CKD) Aortic stenosis Moderate aortic valve stenosis per 11/06/2022 echo. WILBERTO 1.0 cm by continuity equation; mean gradient 20.8 mmHg; V-max 3.274 m/s Chronic diastolic (congestive) heart failure Epididymal cyst ESRD (end stage renal disease) Hemodiaylsis on ,,Friday at [facility] in [place] History of COVID-19 10/2022 - treated with paxlovid - no hospitalization Hypertension Multiple myeloma hx -- currently in remission- s/p stem cell transplant Open wound of left thumb Osteoarthritis of knee Pericardial effusion Chronic/small per cardio records Peritoneal dialysis catheter dysfunction reason for removal PFO (patent foramen ovale) PFO with small [id number]-yuhdg shunt per 03/2023 ECHO per 03/2023 cardio note Pulmonary hypertension PASP 49mmHg per 03/2023 per 04/07/23 cardio note Secondary hyperparathyroidism of renal origin Testicular mass Type 2 diabetes mellitus diet controlled Surgical History H/O stem cell transplant History of back surgery L4/L5 fusion History of surgery (05/01/23) Removal of Peritoneal Dialysis Catheter(Not Applicable) - Jam Eldridge, S/P arteriovenous (AV) fistula creation Left arm Total knee replacement status RIGHT/LEFT Family History Father Family history of diabetes mellitus Other No family history of adverse response to anesthesia Social History Smoking Status: Never smoker Tobacco Type: Cigarettes Age Started Using Tobacco: 25; Age Quit Using Tobacco: 40; Second Hand Exposure: No; Do You Dip or Chew Tobacco: No; Hx Alcohol Use: No Hx Substance Use: No Preferred Language: French Communication Ability: Effective Visual Impairment: No Limitations Traffic Rate Clerk Required: No Beliefs That Will Affect Care: None marital status: Current Living Situation: Spouse current occupational status: retired How many Children do You have: 3 Feels Safe at Home: Yes Diet: regular during the past year weight has: remained stable Assistive Devices: None Review of Systems Constitutional: no fever Eyes: no worsening vision Ear, Nose, Mouth, Throat: no problem reported Respiratory: no cough and no dyspnea Cardiovascular: no chest pain Gastrointestinal: no abdominal pain, no nausea, no vomiting and no diarrhea/loose stools Integumentary: no rash Neurologic: no falls and no confusion Physical Exam Constitutional: not in distress Eyes: PERRL, conjunctivae normal, anicteric sclerae ENMT: external ear and nose normal, oropharynx normal Neck: trachea midline, no thyromegaly Respiratory: normal respiratory effort, lungs clear to auscultation Cardiovascular: Rate/Rhythm: regular rate and regular rhythm Gastrointestinal (Abdomen): normal bowel sounds, soft, nontender, no hepatosplenomegaly Skin: no rashes, warm and dry Neurologic: Speech / Cognition: normal speech and normal cognition Psychiatric: Affect: euthymic affect Results & Data Vital Signs (Past 12 Hours) Vital Signs Pulse Pulse Resp BP Pulse Ox O2 Del Method O2 Flow Rate 06/04/23 07:05 66 06/04/23 06:00 67 16 108/59 L 94 Nasal Cannula 2 06/04/23 02:31 80 16 100/56 L 96 Nasal Cannula 2 06/04/23 01:00 60 16 99/59 L 93 Nasal Cannula 2 Laboratory Results Laboratory Results WBC 4.98 K/ul (4.8-10.8) 06/04/23 02:33 RBC 2.40 M/uL (4.70-6.10) L 06/04/23 02:33 Hgb 8.2 g/dl (14.0-18.0) L 06/04/23 02:33 Hct 23.8 % (42.0-52.0) L 06/04/23 02:33 MCV 99.2 fL (80.0-100.0) 06/04/23 02:33 MCH 34.2 pg (25.0-34.0) H 06/04/23 02:33 MCHC 34.5 g/dL (32.0-36.0) 06/04/23 02:33 RDW Std Deviation 48.0 fL (36.4-46.3) H 06/04/23 02:33 RDW Coeff of Krish 13.6 % (11.5-14.5) 06/04/23 02:33 Plt Count 135 K/uL (130-400) 06/04/23 02:33 MPV 10.1 fL (9.4-12.4) 06/04/23 02:33 Immature Gran % (Auto) 0.2 % 06/04/23 02:33 Neut % (Auto) 59.7 % 06/04/23 02:33 Lymph % (Auto) 26.3 % 06/04/23 02:33 [place] % (Auto) 9.4 % 06/04/23 02:33 Eos % (Auto) 4.0 % 06/04/23 02:33 Baso % (Auto) 0.4 % 06/04/23 02:33 Neut # (Auto) 2.97 K/uL (1.40-6.50) 06/04/23 02:33 Lymph # (Auto) 1.31 K/uL (1.20-3.40) 06/04/23 02:33 [place] # (Auto) 0.47 K/uL (0.11-0.59) 06/04/23 02:33 Eos # (Auto) 0.20 K/uL (0.00-0.50) 06/04/23 02:33 Baso # (Auto) 0.02 K/uL (0.00-0.20) 06/04/23 02:33 Immature Gran # (Auto) 0.01 K/uL (0.01-0.20) 06/04/23 02:33 Sodium 139 mmol/L (136-145) 06/04/23 02:33 Potassium 4.0 mmol/L (3.5-5.1) 06/04/23 02:33 Chloride 100 mmol/L (98-107) 06/04/23 02:33 Carbon Dioxide 29 mmol/L (21-32) 06/04/23 02:33 Anion Gap 10 (3-11) 06/04/23 02:33 BUN 43 mg/dl (6-23) H 06/04/23 02:33 Creatinine 6.70 mg/dl (0.6-1.4) H* D 06/04/23 02:33 Est Cr Clr Drug Dosing 9.3 ml/min 06/04/23 02:33 Est GFR ( Amer) 8.6 ml/min 06/04/23 02:33 Est GFR (Non-Af Amer) 7.5 ml/min 06/04/23 02:33 BUN/Creatinine Ratio 6.4 (10-20) L 06/04/23 02:33 Glucose 94 mg/dl (70-99(Fasting)) 06/04/23 02:33 Calcium 8.4 mg/dl (8.6-10.3) L 06/04/23 02:33 Phosphorus 4.6 mg/dl (2.5-4.9) 06/04/23 02:33 Magnesium 2.2 mg/dl (1.7-2.4) 06/04/23 02:33 Total Bilirubin 0.5 mg/dl (0.2-1.0) 06/03/23 11:35 AST 16 U/L (13-39) 06/03/23 11:35 ALT 9 U/L (7-52) 06/03/23 11:35 Alkaline Phosphatase 77 U/L (34-104) 06/03/23 11:35 Troponin I High Sens 111.2 pg/ml (0-20) H* D 06/04/23 02:33 Total Protein 6.6 gm/dl (6.0-8.3) 06/03/23 11:35 Albumin 4.4 gm/dl (3.4-5.0) 06/03/23 11:35 Globulin 2.2 gm/dl (2.5-4.0) L 06/03/23 11:35 Albumin/Globulin Ratio 2.0 (0.9-2) 06/03/23 11:35 Lipase 246 U/L (11-82) H 06/03/23 11:35 Lyme Disease IgG Ab Negative (Negative) 06/03/23 17:38 Lyme Disease IgM Ab Negative (Negative) 06/03/23 17:38 Laboratory Tests 06/03/23 06/03/23 06/04/23 11:35 17:38 02:33 Troponin I High Sens 13.8 59.3 H* D 111.2 H* D 06/04/23 08:23 Troponin I High Sens Pending 06/03/23 ECG: Sinus tachycardia with Premature atrial complexes Low voltage QRS Left anterior fascicular block Abnormal ECG When compared with ECG of 09-NOV-2022 11:50, Premature atrial complexes are now Present Chest X-Ray 06/03/23 11:35 XR chest 1V portable CLINICAL HISTORY: Chest pain, nonspecific TECHNIQUE: Single frontal radiograph of the chest was obtained. Comparison: Comparison is made to chest radiograph 11/09/2022 FINDINGS: No lines and tubes are seen. Cardiomegaly is noted. Trace atelectasis at the left lung base. No evidence of pleural effusion or pneumothorax. IMPRESSION: No acute chest disease. Cardiomegaly is noted. ACT 112: Negative or not required by law. Electronically signed by: Christiano Capellan M.D. 06/03/2023 12:36 PM PG Care Time/CCT Total # of Minutes Spent Total Time Spent with Patient: Total time spent is greater than 50% in coordination of care (as documented) at patient's floor/unit and/or counseling patient: Coding Level of Care Code 90585 IN/OBS CONSULT LVL 5,80M Diagnoses End stage renal disease N18.6 Atypical chest pain R07.89
[2023-06-04 09:40] LABS: Troponin I High Sensitivity 87.1 pg/ml (0-20)
[2023-06-04 13:35] LABS: Ferritin 1112.8 ng/ml (8-388)
--- NOTE | 2023-06-04 14:26 | Discharge Summary ---
Date of Service June 04, 2023 Admission HPI Per Admitting Provider Solomon is a 73-year-old male with a past medical history of hypertension, anemia, CKD, pericardial effusion, ESRD on dialysis who was at his usual dialysis session when he developed shortness of breath and chest discomfort. He was given morphine and nitro which resolved the discomfort and he was brought to the ER for further evaluation. On ER work-up potassium is 3.4, high-sensitivity troponin is normal, EKG is sinus tachycardia with PACs, QTc [address] segment changes Solomon reports he was at dialysis whne he suddenly developed a funny feeling/discomfort in his chest and which radiated into both arms. Some lightheadedness, no sycnope/presyncope. Did have associated shortness of breath, has also taken Dextromethorpan fo ra mild cough/cold. Had some sinus congestion for 1 week. No fevers/chills/sweats. Outpatient COVID was negative. Took a dose of Mucinex DM and 'knocked me out for three days and Missed last dialysis'. Had dialysis Friday which he tolerated OK but was much more fatigued afterwards, and then today had th eepisode of SOB and CP. No abdomianl pain, diarrhea, constipation. No dysuria. Pt does still make a lot of urine. L AV fistula with good thrill. No erythema/warmth/tenderness. Medical History: Reviewed Medications: Reviewed Surgical History: Reviewed Family history: Reviewed Allergies: Reviewed Social History: Reviewed Code Status: Full Principal Diagnosis Atypical chest pain Discharge Exam General-alert and oriented x3, no fevers, no chills HEENT-head atraumatic and normocephalic, pupils equal and reactive to light, extraocular muscles intact Neck-no lymphadenopathy or thyromegaly, trachea midline Chest-clear to auscultation percussion. No rales wheezing or rhonchi Cardiac-regular rate and rhythm, normal S1 and S2 Abdomen-normal bowel sounds, nontender, no hepatosplenomegaly Extremities-no cyanosis, clubbing, or edema Neuro-cranial nerves II through XII intact, motor and sensory function within normal limits, strength symmetrical, no focal deficits Psych-normal affect, normal mood Discharge Data Allergies Allergy/AdvReac Type Severity Reaction Status Date / Time bortezomib [From Velcade] Allergy Severe pneumonia Verified 05/14/23 08:52 clindamycin Allergy Severe Rash Verified 05/14/23 08:52 Sulfa (Sulfonamide Allergy Intermediate diarrhea, Verified 05/14/23 08:52 Antibiotics) rash cefprozil [From Cefzil] AdvReac Intermediate Diarrhea Verified 05/14/23 08:52 Consultations 06/03/23 14:00 ED Decision to Admit Stat Hospital Course (1) Atypical chest pain: Resolved. The second EKG is entirely normal. Troponins are elevated but this does not represent acute coronary syndrome. Case discussed with Dr. Flores and he agrees that the patient is stable for discharge now. (2) Amyloidosis: Amyloidosis, w/ cardiac & renal involvement. Stable. No intervention necessary at this time (3) Chronic kidney disease, stage V: ESRD HD. Serial lab (4) Anemia: Due to end-stage renal disease. No evidence of overt bleeding. Serial labs (5) ESRD on hemodialysis: Known. Continue hemodialysis as scheduled (6) HTN (hypertension): Continue metoprolol, amlodipine (7) Hyperlipidemia: Stable. Continue statin therapy (8) Pericardial effusion: Stable. Continue outpatient follow-up Plan Home today, June 04. No new medications at this time Total Time Total Time Spent Total Time Spent (In Minutes): 45 minutes Discharge Plan Discharge Items Patient Disposition: Home - Self-Care Reason For Visit: CHEST PAIN EVAL Discharge Diagnosis: Atypical chest pain Activity: Resume your previous activity Non-emergency contact: Primary Care Provider and Paper Sample Clerk Call non-emergency contact if: your symptoms worsen Follow-up/Referrals: Rudy Royal [Primary Care Provider] - Diet: Dialysis Renal and Heart Healthy Add Attending Provider Instructions: No new medications at this time Pending Studies at Discharge: No Stand-Alone Forms: My [facility], Smoking Cessation Medications and DC Order Prescriptions: Continued metoprolol succinate 25 mg tablet extended release 24 hr 12.5 mg PO QAM Qty: 45 3RF Rx Instructions: take 1/2 tablet once daily. doxycycline monohydrate 100 mg capsule 100 mg PO QAM sevelamer carbonate [Renvela] 800 mg tablet 3,200 mg PO BID tamsulosin [Flomax] 0.4 mg Capsule 0.4 mg PO QPM amlodipine 10 mg tablet 10 mg PO QAM trazodone 50 mg tablet 100 mg PO HS allopurinol 100 mg tablet 100 mg PO QAM rosuvastatin [Crestor] 5 mg tablet 5 mg PO HS lansoprazole [Prevacid] 30 mg capsule,delayed release(DR/EC) 30 mg PO DAILY acyclovir 400 mg Tablet 400 mg PO HS Discharge Orders: Discharge Order (Routine); Ordered 06/04/23 Ordered By: Pineda Mcdowell Admission Data Admit Date/Time: 06/03/23 14:24 Attending Provider: Pineda Mcdowell Admit Provider: Vj Lees Primary Care Provider: Rudy Royal Other Providers: Vj Lees Coding Level of Care Code 37452 INP/OBS DISCH >30 MIN Diagnoses Atypical chest pain R07.89 Amyloidosis E85.9 Amyloidosis type: unspecified amyloidosis Chronic kidney disease, stage V N18.5 Anemia D64.9 ESRD on hemodialysis N18.6; Z99.2 HTN (hypertension) I10 Hyperlipidemia E78.5 Pericardial effusion I31.39
--- NOTE | 2023-06-04 15:05 | XCELERA ---
[id number]
--- NOTE | 2023-06-04 16:45 | Electrocardiogram Report ---
Test Reason : Blood Pressure : / mmHG Vent. Rate : 065 BPM Atrial Rate : 065 BPM P-R Int : 194 ms QRS Dur : 096 ms QT Int : 450 ms P-R-T Axes : 018 -36 054 degrees QTc Int : 468 ms Normal sinus rhythm Left axis deviation Cannot rule out Anterior infarct (cited on or before 04-JUN-2023) Abnormal ECG When compared with ECG of 03-JUN-2023 11:30, Atrial flutter is no longer Present Vent. rate has decreased BY 54 BPM Confirmed by Mart Guerra ([id number]) on 06/04/2023 4:45:04 PM Referred By: REFERRED SELF Confirmed By:Mart Guerra
== END 2023-06-04 14:49 | disposition home or self-care (01) ==
LOC: EDINP 11:25 → ED 11:25 → SUATTDRO 14:24 → EDINP 17:05